=== PATIENT | female | born 1980 | race Caucasian/White ===

== ENCOUNTER 2018-05-03 00:09 | Inpatient (IN) ==
[2018-05-03] MEDS ORDERED: Vancomycin Inj 1,000 MG in Sodium Chlor 0.9% Inj 250 ML IV.SIG STA (00:47)
[2018-05-03] MEDS ORDERED: Piperacil/Tazo 4.5 GM Premix 4.5 GM/100 ML BAG IV.SIG STA (00:47)
[2018-05-03] MEDS ORDERED: Acetaminophen 325 MG Tablet PO ONE (00:56)
--- NOTE | 2018-05-03 01:14 | XR ---
EXAM DATE: 05/03/2018 1:11 AM EDT AGE/SEX: 37 years / Female INDICATIONS: Short of breath and fever. CLINICAL DATA: This is the patient's initial encounter. Patient reports that signs and symptoms have been present for 1 day and indicates a pain score of 0/10. MEDICAL/SURGICAL HISTORY: None. None. COMPARISON: No prior exams available for comparison. FINDINGS: Single AP view of the chest. The lungs are clear. Cardiomediastinal silhouette within nor mal limits. No evidence of pleural effusion or pneumothorax. CONCLUSION: No acute cardiopulmonary disease identified. Electronically signed by: Chris Reno MD 05/03/2018 1:13 AM EDT
[2018-05-03 01:39] LABS: Baso # (Auto) 0.1 th/mm3 (0.0-0.2); Baso % (Auto) 0.4 % (0.0-2.0); Eos % (Auto) 0.2 % (0.0-4.0); Hematocrit 33.4 % (35.0-46.0); Hemoglobin 11.6 gm/dL (11.6-15.3); Lymph # (Auto) 2.5 th/mm3 (1.0-4.8); Lymph % (Auto) 12.9 % (9.0-44.0); Mean Corpuscular HGB Conc 34.7 % (32.0-36.0); Mean Corpuscular Hemoglobin 27.5 pg (27.0-34.0); Mean Corpuscular Volume 79.3 fL (80.0-100.0); Mean Platelet Volume 7.6 fL (7.0-11.0); Mono # (Auto) 1.4 th/mm3 (0.0-0.9); Mono % (Auto) 7.1 % (0.0-8.0); Neut # (Auto) 15.5 th/mm3 (1.8-7.7); Neut % (Auto) 79.4 % (16.0-70.0); Platelet Count 445 th/mm3 (150-450); Red Blood Count 4.21 mil/mm3 (4.00-5.30); Red Cell Distribution Width 13.5 % (11.6-17.2); White Blood Count 19.5 th/mm3 (4.0-11.0)
[2018-05-03 01:51] LABS: Activated Partial Thrombo Time 37.3 sec (24.3-30.1); Prothrombin Time 10.6 sec (9.8-11.6)
--- NOTE | 2018-05-03 01:59 | ED ---
HPI General Chief complaint: Skin/Abscess/Foreign Body Stated complaint: Skin Time Seen by Provider: 05/03/18 00:36 Related Data Home Medications Medication Instructions Recorded Confirmed No Known Home Medications 04/27/18 05/03/18 Allergies Allergy/AdvReac Type Severity Reaction Status Date / Time *MDRO Multi-Drug Resistant Allergy Unknown Uncoded 01/19/16 13:21 Organism [facility] Medical History Medical History Drug abuse (Acute) Social History Social History Substance History: Active Abuse Second Hand Smoke Exposure: Yes Smoking Status: Current every day smoker Tobacco Type: Cigarettes How Often Do You Have a Drink Containing Alcohol: Never Recent Travel in [facility] within the Last 8 Weeks: No Recent Out of Country Travel within the Last 8 Weeks: No Substance Abuse Detail Crack/Cocaine: Substance Use Status: Active Route Used Substance Abuse: Intravenously Immunization History Tetanus Immunization: <5 Years Procedures Abscess I/D Site: upper extremity (Right forearm, left upper outer shoulder) Side (if applicable): left and right Anesthetic used: lidocaine 1% Technique: incised with #11 blade Amount of fluid expressed (mL): 20 Irrigation: No Packing used?: plain Complications: pain Course Initial Documented Vital Signs Temperature 99.4 F 05/03/18 00:26 Pulse Rate 101 H 05/03/18 00:26 Respiratory Rate 18 05/03/18 00:26 Blood Pressure 114/78 05/03/18 00:26 Pulse Oximetry 100 05/03/18 00:26 Last Documented Vital Signs Temperature 97.9 F 05/03/18 18:00 Pulse Rate 76 05/03/18 18:00 Respiratory Rate 18 05/03/18 18:00 Blood Pressure 104/59 L 05/03/18 18:00 Pulse Oximetry 98 05/03/18 18:00 Medical Decision Making Lab Data Result diagrams: 05/03/18 01:25 05/03/18 01:25 Lab Results 05/03/18 05/03/18 05/03/18 Range/Units 01:25 01:25 01:25 WBC 19.5 H (4.0-11.0) th/mm3 RBC 4.21 (4.00-5.30) mil/mm3 Hgb 11.6 (11.6-15.3) gm/dL Hct 33.4 L (35.0-46.0) % MCV 79.3 L (80.0-100.0) fL MCH 27.5 (27.0-34.0) pg MCHC 34.7 (32.0-36.0) % RDW 13.5 (11.6-17.2) % Plt Count 445 (150-450) th/mm3 MPV 7.6 (7.0-11.0) fL Neut % (Auto) 79.4 H (16.0-70.0) % Lymph % (Auto) 12.9 (9.0-44.0) % [place] % (Auto) 7.1 (0.0-8.0) % Eos % (Auto) 0.2 (0.0-4.0) % Baso % (Auto) 0.4 (0.0-2.0) % Neut # (Auto) 15.5 H (1.8-7.7) th/mm3 Lymph # (Auto) 2.5 (1.0-4.8) th/mm3 [place] # (Auto) 1.4 H (0.0-0.9) th/mm3 Eos # (Auto) 0.0 (0.0-0.4) th/mm3 Baso # (Auto) 0.1 (0.0-0.2) th/mm3 WBC Differential . Differential Comment Auto diff final PT 10.6 (9.8-11.6) sec INR 1.0 Ratio APTT 37.3 H (24.3-30.1) sec Sodium 132 L (136-145) meq/L Potassium 3.1 L (3.5-5.1) meq/L Chloride 95 L (98-107) meq/L Carbon Dioxide 27.9 (21.0-32.0) meq/L Anion Gap 9 (5-15) meq/L BUN 8 (7-18) mg/dL Creatinine 0.68 (0.50-1.00) mg/dL Estimated GFR Greater than 89 (>89) mL/min Random Glucose 79 (74-106) mg/dL Lactic Acid (0.4-2.0) mmol/L Calcium 8.0 L (8.5-10.1) mg/dL Total Bilirubin 0.9 (0.2-1.0) mg/dL AST 33 (15-37) U/L ALT 28 (10-53) U/L Alkaline Phosphatase 95 (45-117) U/L Total Protein 6.9 (6.4-8.2) g/dL Albumin 3.1 L (3.4-5.0) g/dL Beta HCG, Quant Less than 1 (0-5) mIU/mL Urine Opiates Screen (Neg) Ur Barbiturates Screen (Neg) Ur Amphetamines Screen (Neg) U Benzodiazepines Scrn (Neg) Urine Cocaine Screen (Neg) U Cannabinoids Screen (Neg) Serum Alcohol Less than 3 (0-5) mg/dL 05/03/18 05/03/18 Range/Units 01:25 01:33 WBC (4.0-11.0) th/mm3 RBC (4.00-5.30) mil/mm3 Hgb (11.6-15.3) gm/dL Hct (35.0-46.0) % MCV (80.0-100.0) fL MCH (27.0-34.0) pg MCHC (32.0-36.0) % RDW (11.6-17.2) % Plt Count (150-450) th/mm3 MPV (7.0-11.0) fL Neut % (Auto) (16.0-70.0) % Lymph % (Auto) (9.0-44.0) % [place] % (Auto) (0.0-8.0) % Eos % (Auto) (0.0-4.0) % Baso % (Auto) (0.0-2.0) % Neut # (Auto) (1.8-7.7) th/mm3 Lymph # (Auto) (1.0-4.8) th/mm3 [place] # (Auto) (0.0-0.9) th/mm3 Eos # (Auto) (0.0-0.4) th/mm3 Baso # (Auto) (0.0-0.2) th/mm3 WBC Differential Differential Comment PT (9.8-11.6) sec INR Ratio APTT (24.3-30.1) sec Sodium (136-145) meq/L Potassium (3.5-5.1) meq/L Chloride (98-107) meq/L Carbon Dioxide (21.0-32.0) meq/L Anion Gap (5-15) meq/L BUN (7-18) mg/dL Creatinine (0.50-1.00) mg/dL Estimated GFR (>89) mL/min Random Glucose (74-106) mg/dL Lactic Acid 1.0 (0.4-2.0) mmol/L Calcium (8.5-10.1) mg/dL Total Bilirubin (0.2-1.0) mg/dL AST (15-37) U/L ALT (10-53) U/L Alkaline Phosphatase (45-117) U/L Total Protein (6.4-8.2) g/dL Albumin (3.4-5.0) g/dL Beta HCG, Quant (0-5) mIU/mL Urine Opiates Screen Pos H (Neg) Ur Barbiturates Screen Neg (Neg) Ur Amphetamines Screen Neg (Neg) U Benzodiazepines Scrn Neg (Neg) Urine Cocaine Screen Pos H (Neg) U Cannabinoids Screen Neg (Neg) Serum Alcohol (0-5) mg/dL Imaging Data Radiologist's impression: Chest X-Ray 05/03/18 00:45 CONCLUSION: No acute cardiopulmonary disease identified. Discharge Plan Discharge Disposition Patient Disposition: 30 Still Patient Discharge Condition Condition: Stable Discharge Details Diagnosis: Abscess, Cellulitis Physicians Team ED Provider: Benjamín Hood ED Midlevel Provider: Cecil Butts Primary Care Provider: UNKNOWN, Attending Provider: Sven Piper Status ED Status: Left Department Discharge Information Discharge Date/Time: 05/03/18 05:47
[2018-05-03 02:00] LABS: Alkaline Phosphatase 95 U/L (45-117); Total Protein 6.9 g/dL (6.4-8.2)
[2018-05-03 02:04] LABS: Alanine Aminotransferase 28 U/L (10-53); Albumin 3.1 g/dL (3.4-5.0); Anion Gap 9 meq/L (5-15); Aspartate Aminotransferase 33 U/L (15-37); Blood Urea Nitrogen 8 mg/dL (7-18); Carbon Dioxide 27.9 meq/L (21.0-32.0); Chloride 95 meq/L (98-107); Glomerular Filtration Rate Greater Than 89 mL/min (>89); Glucose,Random 79 mg/dL (74-106); Potassium 3.1 meq/L (3.5-5.1); Sodium 132 meq/L (136-145)
[2018-05-03 02:22] LABS: Amphetamine Screen,Urine Neg (Neg); Barbiturate Screen,Urine Neg (Neg); Cannabinoid Screen,Urine Neg (Neg); Cocaine Screen,Urine Pos (Neg)
[2018-05-03 02:52] LABS: Opiate Screen,Urine Pos (Neg)
--- NOTE | 2018-05-03 03:13 | ED ---
HPI General Chief complaint: Skin/Abscess/Foreign Body Stated complaint: Skin Time Seen by Provider: 05/03/18 00:36 Source: patient Mode of arrival: ambulatory History of Present Illness HPI narrative: The patient is a 37-year-old male with history of IV drug abuse presenting with 2 abscesses one of the left shoulder one on the right forearm secondary to shooting up crack cocaine about 3 weeks ago. Patient also has hep C and history of panic attacks. Has extensive history of heroin abuse and states she has been in rehab. Denies any fever or chills. MD complaint: abscess/boil Onset (ago): week(s) (3) Tetanus Immunization: <5 Years Location: LUE and RUE Severity: severe Severity scale (1-10): >10 Pain Consistency: constant Relieving factors: none Context: IVDA Associated symptoms: denies other symptoms Treatments prior to arrival: none Related Data Home Medications Medication Instructions Recorded Confirmed No Known Home Medications 04/27/18 04/27/18 Allergies Allergy/AdvReac Type Severity Reaction Status Date / Time *MDRO Multi-Drug Resistant Allergy Unknown Uncoded 01/19/16 13:21 Organism Review of Systems Constitutional Denies fever(s) Eyes Denies change in vision ENT Denies headache(s) and Denies nasal congestion Cardiovascular Denies chest pain Respiratory Denies dyspnea Gastrointestinal Denies abdominal pain Genitourinary Denies difficulty voiding Musculoskeletal Denies myalgias Integumentary/Breasts Comments: Abscess with redness on left upper and right upper extremities Neurologic Denies headache(s) Psychiatric Reports anxiety, Reports depression, Reports irritability, Reports panic attacks , Denies hallucinations and Denies suicidal ideation Endocrine Denies polyuria Hematologic/Lymphatic Denies easy bruising PMFSH Medical History Medical History Drug abuse (Acute) Social History Social History Substance History: Active Abuse Second Hand Smoke Exposure: Yes Smoking Status: Current every day smoker Tobacco Type: Cigarettes How Often Do You Have a Drink Containing Alcohol: Monthly or less Substance Abuse Detail Crack/Cocaine: Substance Use Status: Active Route Used Substance Abuse: Intravenously Immunization History Tetanus Immunization: <5 Years Exam Narrative Exam Narrative: GENERAL: [-] SKIN: Multiple tattoos excoriations and track sanchez on upper extremities. She has a large abscess on the left shoulder pad with indurated tissue. She also has an abscess that is measuring 3 x 2 cm on the posterior aspect of the right forearm. HEAD: Atraumatic. Normocephalic. EYES: Pupils equal and round. No scleral icterus. No injection or drainage. ENT: No nasal bleeding or discharge. Mucous membranes pink and moist. Poor dentition. NECK: Trachea midline. No JVD. CARDIOVASCULAR: Regular rate and rhythm. No murmur appreciated. RESPIRATORY: No accessory muscle use. Clear to auscultation. Breath sounds equal bilaterally. GASTROINTESTINAL: Abdomen soft, non-tender, nondistended. Hepatic and splenic margins not palpable. MUSCULOSKELETAL: No obvious deformities. No clubbing. No cyanosis. No edema. NEUROLOGICAL: Awake and alert. No obvious cranial nerve deficits. Motor grossly within normal limits. Normal speech. PSYCHIATRIC: Appropriate mood and affect; Inappropriate judgment patient has been seen taking off her robe several times.Not suicidal homicidal. Anxious Procedures Abscess I/D Site: upper extremity (Left shoulder pad and right forearm) Anesthetic used: lidocaine 1% Technique: incised with #11 blade Amount of fluid expressed (mL): 30 Irrigation: Yes Packing used?: iodoform Course Reevaluation(s) Time: 02:12 Reevaluation #2: Both abscesses were incised and drained. Due to the fact the patient has markedly elevated white count and she is not a reliable patient will admit her for IV antibiotics. In addition she is not a reliable patient to discharge on p.o. antibiotics likely will return septic from her wounds. Potassium of 3.1 noted. Time: 03:15 Initial Documented Vital Signs Temperature 99.4 F 05/03/18 00:26 Pulse Rate 101 H 05/03/18 00:26 Respiratory Rate 18 05/03/18 00:26 Blood Pressure 114/78 05/03/18 00:26 Pulse Oximetry 100 05/03/18 00:26 Last Documented Vital Signs Temperature 98 F 05/03/18 05:24 Pulse Rate 80 05/03/18 05:24 Respiratory Rate 05/03/18 05:24 Blood Pressure 132/72 05/03/18 05:24 Pulse Oximetry 100 05/03/18 00:26 Medical Decision Making MDM Narrative Medical decision making narrative: Abscesses drained by mid-level practitioner IV antibiotics started the fact that there was a large amount of purulent discharge from the I&D she is not a reliable patient to discharge home with p.o. antibiotics. Elevated WBC. Not appearing septic no lactic acidosis. Lab Data Lab results reviewed: Yes I reviewed the patient's lab results. Result diagrams: 05/03/18 01:25 05/03/18 01:25 Lab Results 05/03/18 05/03/18 05/03/18 Range/Units 01:25 01:25 01:25 WBC 19.5 H (4.0-11.0) th/mm3 RBC 4.21 (4.00-5.30) mil/mm3 Hgb 11.6 (11.6-15.3) gm/dL Hct 33.4 L (35.0-46.0) % MCV 79.3 L (80.0-100.0) fL MCH 27.5 (27.0-34.0) pg MCHC 34.7 (32.0-36.0) % RDW 13.5 (11.6-17.2) % Plt Count 445 (150-450) th/mm3 MPV 7.6 (7.0-11.0) fL Neut % (Auto) 79.4 H (16.0-70.0) % Lymph % (Auto) 12.9 (9.0-44.0) % [place] % (Auto) 7.1 (0.0-8.0) % Eos % (Auto) 0.2 (0.0-4.0) % Baso % (Auto) 0.4 (0.0-2.0) % Neut # (Auto) 15.5 H (1.8-7.7) th/mm3 Lymph # (Auto) 2.5 (1.0-4.8) th/mm3 [place] # (Auto) 1.4 H (0.0-0.9) th/mm3 Eos # (Auto) 0.0 (0.0-0.4) th/mm3 Baso # (Auto) 0.1 (0.0-0.2) th/mm3 WBC Differential . Differential Comment Auto diff final PT 10.6 (9.8-11.6) sec INR 1.0 Ratio APTT 37.3 H (24.3-30.1) sec Sodium 132 L (136-145) meq/L Potassium 3.1 L (3.5-5.1) meq/L Chloride 95 L (98-107) meq/L Carbon Dioxide 27.9 (21.0-32.0) meq/L Anion Gap 9 (5-15) meq/L BUN 8 (7-18) mg/dL Creatinine 0.68 (0.50-1.00) mg/dL Estimated GFR Greater than 89 (>89) mL/min Random Glucose 79 (74-106) mg/dL Lactic Acid (0.4-2.0) mmol/L Calcium 8.0 L (8.5-10.1) mg/dL Total Bilirubin 0.9 (0.2-1.0) mg/dL AST 33 (15-37) U/L ALT 28 (10-53) U/L Alkaline Phosphatase 95 (45-117) U/L Total Protein 6.9 (6.4-8.2) g/dL Albumin 3.1 L (3.4-5.0) g/dL Beta HCG, Quant Less than 1 (0-5) mIU/mL Urine Opiates Screen (Neg) Ur Barbiturates Screen (Neg) Ur Amphetamines Screen (Neg) U Benzodiazepines Scrn (Neg) Urine Cocaine Screen (Neg) U Cannabinoids Screen (Neg) Serum Alcohol Less than 3 (0-5) mg/dL 05/03/18 05/03/18 Range/Units 01:25 01:33 WBC (4.0-11.0) th/mm3 RBC (4.00-5.30) mil/mm3 Hgb (11.6-15.3) gm/dL Hct (35.0-46.0) % MCV (80.0-100.0) fL MCH (27.0-34.0) pg MCHC (32.0-36.0) % RDW (11.6-17.2) % Plt Count (150-450) th/mm3 MPV (7.0-11.0) fL Neut % (Auto) (16.0-70.0) % Lymph % (Auto) (9.0-44.0) % [place] % (Auto) (0.0-8.0) % Eos % (Auto) (0.0-4.0) % Baso % (Auto) (0.0-2.0) % Neut # (Auto) (1.8-7.7) th/mm3 Lymph # (Auto) (1.0-4.8) th/mm3 [place] # (Auto) (0.0-0.9) th/mm3 Eos # (Auto) (0.0-0.4) th/mm3 Baso # (Auto) (0.0-0.2) th/mm3 WBC Differential Differential Comment PT (9.8-11.6) sec INR Ratio APTT (24.3-30.1) sec Sodium (136-145) meq/L Potassium (3.5-5.1) meq/L Chloride (98-107) meq/L Carbon Dioxide (21.0-32.0) meq/L Anion Gap (5-15) meq/L BUN (7-18) mg/dL Creatinine (0.50-1.00) mg/dL Estimated GFR (>89) mL/min Random Glucose (74-106) mg/dL Lactic Acid 1.0 (0.4-2.0) mmol/L Calcium (8.5-10.1) mg/dL Total Bilirubin (0.2-1.0) mg/dL AST (15-37) U/L ALT (10-53) U/L Alkaline Phosphatase (45-117) U/L Total Protein (6.4-8.2) g/dL Albumin (3.4-5.0) g/dL Beta HCG, Quant (0-5) mIU/mL Urine Opiates Screen Pos H (Neg) Ur Barbiturates Screen Neg (Neg) Ur Amphetamines Screen Neg (Neg) U Benzodiazepines Scrn Neg (Neg) Urine Cocaine Screen Pos H (Neg) U Cannabinoids Screen Neg (Neg) Serum Alcohol (0-5) mg/dL Imaging Data Radiologist's impression: Chest X-Ray 05/03/18 00:45 CONCLUSION: No acute cardiopulmonary disease identified. Discharge Plan Discharge Disposition Patient Disposition: 30 Still Patient Discharge Condition Condition: Stable Discharge Details Diagnosis: Abscess, Cellulitis Physicians Team ED Provider: Benjamín Hood ED Midlevel Provider: Cecil Butts Primary Care Provider: UNKNOWN, Attending Provider: Sven Piper Discharge Interventions Interventions: ED Discharge Assessment Last Done: 07/21/18 05:46 Vital Signs Last Done: 05/03/18 00:26 Status ED Status: Left Department Discharge Information Discharge Date/Time: 05/03/18 05:47
[2018-05-03] MEDS ORDERED: Bisacodyl 10 MG Supp RECTAL PRN (04:03)
[2018-05-03] MEDS ORDERED: Acetaminophen 325 MG Tablet PO PRN (04:03)
[2018-05-03] MEDS ORDERED: Temazepam 15 MG Capsule PO PRN (04:03)
--- NOTE | 2018-05-03 04:32 | P.HPIM ---
History of Present Illness Primary Care Physician: UNKNOWN History of Present Illness: This is a 37-year-old female with a PMH of IVDU who presented to the ER with c/ o multiple abscesses to upper extremities. States RUE abscesses present for approx 2wks, right forearm abscess present for approx 1wk. +injecting into sites and attempting to pop them. Denies fever or chills. On arrival, BP 114/ 78, HR 101, O2 sat 100% on RA, Temp 99.4. W BC 19.5. K+ 3.1. Urine Drug Screen positive for Cocaine and Opiates. Alcohol negative. CXR with no acute findings. S/p I&D Left Shoulder and Right Forearm in ER, cultures sent. Vanc/ Zosyn given. - Diagnosis (1) IVDU (intravenous drug user) (2) SIRS (systemic inflammatory response syndrome) (3) Abscess Inpatient Certification: I certify that the inpatient services were ordered in accordance with Medicare regulations governing the order. This includes certification that hospital inpatient services are reasonable and necessary and in the case of services not specified as inpatient-only under 42 CFR 419.22(n), that they are appropriately provided as inpatient services in accordance to with the 2-midnight benchmark under 43 CFR 412.3(e) Estimated Total Length of Stay (Days): 2 Plans for Post Hospital Care: Not yet determined Review of Systems All other systems reviewed negative except as stated [facility] - History History Provided By: Patient - Medical History Medical History: Medical History (Last Reviewed 05/03/18 @ 01:32 by Bhavani Vergara) Drug abuse - Tobacco History Second Hand Smoke Exposure: Yes Tobacco Use In Past 30 Days: Yes Smoking Status: Current every day smoker Tobacco Type: Cigarettes - Alcohol History How Often Do You Have a Drink Containing Alcohol: Monthly or less - Substance Use History Substance History: Active Abuse - Substance Use Type Crack/Cocaine Status: Active Route Used: Intravenously - Immunization History Tetanus Immunization: <5 Years Medications and Allergies Active Medications: Active Medications Acetaminophen (Tylenol) 650 mg PO Q4H PRN PRN Reason: Temp > 100.4 Al Hydroxide/Mg Hydroxide (Milk Of Magnesia Liq) 30 ml PO Q12H PRN PRN Reason: Mild Constipation Bisacodyl (Dulcolax Supp) 10 mg RECTAL DAILY PRN PRN Reason: SEVERE CONSITIPATION Sodium Chloride (Ns Inj) 1,000 mls @ 100 mls/hr IV.CONT .Q10H REPLACED BY [facility] Pharmacy Profile Note (Vancomycin Consult Pharmacy) 0 mls @ 0 mls/hr OTHER UNSCH REPLACED BY [facility] Piperacillin/Tazobactam/Dextrose (Zosyn 4.5 Gm Premix) 4.5 gm in 100 mls @ 200 mls/hr IV.SIG Q6H REPLACED BY [facility] Lactulose (Lactulose Liq) 30 ml PO DAILY PRN PRN Reason: SEVERE CONSITIPATION Lorazepam (Ativan Inj) 1 mg IV.PUSH Q2H PRN PRN Reason: AGITATION/WITHDRAWAL Miscellaneous Information ([facility]) 0 each OTHER Q15M REPLACED BY [facility] Stop: 05/03/18 07:16 Ondansetron HCl (Zofran Inj) 4 mg IV.PUSH Q6H PRN PRN Reason: NAUSEA OR VOMITING Oxycodone HCl (Roxicodone) 5 mg PO Q4H PRN PRN Reason: PAIN 3-5 Oxycodone HCl (Roxicodone) 10 mg PO Q4H PRN PRN Reason: PAIN 6-10 Senna/Docusate Sodium (Geeta-Colace) 1 tab PO BID REPLACED BY [facility] Sennosides (Senokot) 17.2 mg PO Q12H PRN PRN Reason: Moderate Constipation Temazepam (Restoril) 15 mg PO HS PRN PRN Reason: INSOMNIA Allergies Allergy/AdvReac Type Severity Reaction Status Date / Time *MDRO Multi-Drug Resistant Allergy Unknown Uncoded 01/19/16 13:21 Organism Home Medications Medication Instructions Recorded Confirmed Type No Known Home Medications 04/27/18 04/27/18 History Exam Vital signs: Vital Signs 05/03/18 00:26 Temperature 99.4 F Pulse Rate 101 H Respiratory Rate 18 Blood Pressure 114/78 Pulse Oximetry 100 Narrative: PE: GENERAL: Thin white female in no acute distress. HEENT: PERRLA, EOMI. No scleral icterus or conjunctival pallor. No lid lag or facial droop. CARDIOVASCULAR: Regular rate and rhythm. No obvious murmurs to auscultation. No chest tenderness to palpation. RESPIRATORY: No obvious rhonchi or wheezing. Clear to auscultation. Breath sounds equal bilaterally. GASTROINTESTINAL: Abdomen soft, non-tender, nondistended. BS normal. MUSCULOSKELETAL: Extremities without clubbing, cyanosis, or edema. No obvious deformities. Left shoulder s/p I&D w/ purulent foul-smelling drainage, left forearm w/ erythema/induration, right forearm s/p I&D w/ no significant drainage. NEUROLOGICAL: Awake, alert and oriented x4. No focal neurologic deficits. Moving both upper and lower extremities spontaneously. Results - Labs CBC & Chem 7: 05/03/18 01:25 05/03/18 01:25 Labs: Short CBC 05/03/18 Range/Units 01:25 WBC 19.5 H (4.0-11.0) th/mm3 Hgb 11.6 (11.6-15.3) gm/dL Hct 33.4 L (35.0-46.0) % Plt Count 445 (150-450) th/mm3 BMP 05/03/18 01:25 Sodium 132 L Potassium 3.1 L Chloride 95 L Carbon Dioxide 27.9 BUN 8 Creatinine 0.68 Calcium 8.0 L Liver Function 05/03/18 Range/Units 01:25 Total Bilirubin 0.9 (0.2-1.0) mg/dL AST 33 (15-37) U/L ALT 28 (10-53) U/L Alkaline Phosphatase 95 (45-117) U/L Albumin 3.1 L (3.4-5.0) g/dL - Imaging Impressions Chest X-Ray 05/03/18 00:45 CONCLUSION: No acute cardiopulmonary disease identified. Caprini VTE Risk Assessment Caprini VTE Risk Assessment: No/Low Risk (score <= 1) Caprini Risk Assessment Model: Point Value = 1 Point Value = 2 Point Value = 3 Point Value = 5 Age 41-60 Minor surgery BMI > 25 kg/m2 Swollen legs Varicose veins or History of unexplained or recurrent spontaneous Oral contraceptives or hormone replacement Sepsis (< 1 month) Serious lung disease, including pneumonia (< 1 month) Abnormal pulmonary function Acute myocardial infarction Congestive heart failure (< 1 month) History of inflammatory bowel disease Medical patient at bed rest Age 61-74 Arthroscopic surgery Major open surgery (> 45 min) Laparoscopic surgery (> 45 min) Malignancy Confined to bed (> 72 hours) Immobilizing plaster cast Central venous access Age >= 75 History of VTE Family history of VTE Factor V Leiden Prothrombin [id number] Lupus anticoagulant Anticardiolipin antibodies Elevated serum homocysteine Heparin-induced thrombocytopenia Other congenital or acquired thrombophilia Stroke (< 1 month) Elective arthroplasty Hip, pelvis, or leg fracture Acute spinal cord injury (< 1 month) Prophylaxis Regimen: Total Risk Factor Score Risk Level Prophylaxis Regimen 0-1 Low Early ambulation 2 Moderate Order ONE of the following: *Sequential Compression Device (SCD) *Heparin 5000 units SQ BID 3-4 Higher Order ONE of the following medications: *Heparin 5000 units SQ TID *Enoxaparin/Lovenox 40 mg SQ daily (WT < 150 kg, CrCl > 30 mL/min) *Enoxaparin/Lovenox 30 mg SQ daily (WT < 150 kg, CrCl > 10-29 mL/min) *Enoxaparin/Lovenox 30 mg SQ BID (WT < 150 kg, CrCl > 30 mL/min) AND/OR *Sequential Compression Device (SCD) 5 or more Highest Order ONE of the following medications: *Heparin 5000 units SQ TID (Preferred with Epidurals) *Enoxaparin/Lovenox 40 mg SQ daily (WT < 150 kg, CrCl > 30 mL/min) *Enoxaparin/Lovenox 30 mg SQ daily (WT < 150 kg, CrCl > 10-29 mL/min) *Enoxaparin/Lovenox 30 mg SQ BID (WT < 150 kg, CrCl > 30 mL/min) AND *Sequential Compression Device (SCD) Assessment and Plan - Assessment (1) IVDU (intravenous drug user) Code(s): F19.90 - Other psychoactive substance use, unspecified, uncomplicated Status: Acute (2) SIRS (systemic inflammatory response syndrome) Code(s): R65.10 - Systemic inflammatory response syndrome (SIRS) of non- infectious origin without acute organ dysfunction Status: Acute (3) Abscess Code(s): L02.91 - Cutaneous abscess, unspecified Status: Acute - Plan A/P: 1. Sepsis/SIRS: Temp 99, HR 104, WBC 19, Source-multiple abscesses. S/p Blood /Wound Cultures, Vanc/Zosyn, follow up cultures, continue w/ IV Abx. IVF for hydration 2. Abscesses: multiple bilateral upper extremity abscesses, s/p I&D Left Shoulder and Right Forearm, pending cultures, will follow. Continue w/ IV Abx, consult surgery if no improvement. 3. IVDU: Ongoing. Ativan prn. 4. DVT Prophylaxis: SCD/Teds 5. Social work for d/c planning as needed. 6. Case discussed w/ ER physician at length, labs/records/imaging reviewed by me.
[2018-05-03] MEDS ORDERED: NEED HT & WT OTHER SCH ×2 (04:45→05:00)
[2018-05-03] MEDS ORDERED: Vancomycin Consult Pharmacy 1 EACH OTHER SCH (05:00)
[2018-05-03] MEDS: NEED HT & WT OTHER SCH ×2 (06:24→06:25)
[2018-05-03] MEDS: Sod Chloride 0.9% Inj 1,000 ML IV.CONT SCH ×2 (06:25→15:58)
[2018-05-03] MEDS: Senna/Docusate Sodium 8.6/50 MG Tablet PO SCH ×2 (09:08→20:34)
[2018-05-03] MEDS: Piperacil/Tazo 4.5 GM Premix 4.5 GM/100 ML BAG IV.SIG SCH ×3 (09:09→20:34)
[2018-05-03] MEDS: Vancomycin Inj 750 MG in Sodium Chlor 0.9% Inj 250 ML IV.SIG SCH (13:38)
[2018-05-04] MEDS: Piperacil/Tazo 4.5 GM Premix 4.5 GM/100 ML BAG IV.SIG SCH ×4 (02:00→20:31)
[2018-05-04] MEDS: Vancomycin Inj 750 MG in Sodium Chlor 0.9% Inj 250 ML IV.SIG SCH ×2 (03:00→15:27)
[2018-05-04 07:10] LABS: Baso # (Auto) 0.1 th/mm3 (0.0-0.2); Baso % (Auto) 0.9 % (0.0-2.0); Eos # (Auto) 0.2 th/mm3 (0.0-0.4); Eos % (Auto) 2.1 % (0.0-4.0); Hematocrit 34.8 % (35.0-46.0); Hemoglobin 12.3 gm/dL (11.6-15.3); Lymph % (Auto) 39.2 % (9.0-44.0); Mean Corpuscular HGB Conc 35.2 % (32.0-36.0); Mean Corpuscular Hemoglobin 28.5 pg (27.0-34.0); Mean Platelet Volume 7.6 fL (7.0-11.0); Mono # (Auto) 0.7 th/mm3 (0.0-0.9); Mono % (Auto) 6.8 % (0.0-8.0); Neut # (Auto) 5.2 th/mm3 (1.8-7.7); Platelet Count 475 th/mm3 (150-450); White Blood Count 10.1 th/mm3 (4.0-11.0)
[2018-05-04 07:42] LABS: Alanine Aminotransferase 29 U/L (10-53); Albumin 2.9 g/dL (3.4-5.0); Alkaline Phosphatase 81 U/L (45-117); Anion Gap 8 meq/L (5-15); Aspartate Aminotransferase 29 U/L (15-37); Blood Urea Nitrogen 10 mg/dL (7-18); Calcium 8.1 mg/dL (8.5-10.1); Chloride 106 meq/L (98-107); Glomerular Filtration Rate 87 mL/min (>89); Glucose,Random 87 mg/dL (74-106); Potassium 3.3 meq/L (3.5-5.1); Sodium 144 meq/L (136-145); Total Protein 6.7 g/dL (6.4-8.2)
[2018-05-04] MEDS: Sod Chloride 0.9% Inj 1,000 ML IV.CONT SCH ×3 (08:43→22:49)
[2018-05-04] MEDS: Senna/Docusate Sodium 8.6/50 MG Tablet PO SCH ×2 (08:45→20:35)
--- NOTE | 2018-05-04 10:58 | P.PNIM ---
Subjective Interval history: This is a 37-year-old female with a PMH of IVDU who presented to the ER with c/ o multiple abscesses to upper extremities. States RUE abscesses present for approx 2wks, right forearm abscess present for approx 1wk. +injecting into sites and attempting to pop them. Denies fever or chills. On arrival, BP 114/ 78, HR 101, O2 sat 100% on RA, Temp 99.4. W BC 19.5. K+ 3.1. Urine Drug Screen positive for Cocaine and Opiates. Alcohol negative. CXR with no acute findings. S/p I&D Left Shoulder and Right Forearm in ER, cultures sent. Vanc/ Zosyn given. 05-04 PATIENT STATES SKIN POPS HEROIN AND COCAINE AND CRACK SMOKES CRACK CONTINUE ANTIBIOTICS DW RN AND PATIENT REPLACE POTASSIUM AM LABS CASE MANAGEMENT KEEPS PICKING AT HER WOUNDS CONSULT CASE RESOLUTION SPECIALIST Physical Exam Vital signs: Vital Signs 05/03/18 11:38 05/03/18 15:39 05/03/18 18:00 Temperature 98.2 F 97.7 F 97.9 F Pulse Rate 79 76 76 Respiratory Rate 16 16 18 Blood Pressure 97/55 L 86/51 L 104/59 L Pulse Oximetry 98 100 98 05/03/18 20:00 05/04/18 00:00 05/04/18 04:00 Temperature 98.1 F 98.2 F 98.2 F Pulse Rate 71 80 83 Respiratory Rate 18 18 18 Blood Pressure 98/62 L 100/57 L 103/60 Pulse Oximetry 99 98 93 L 05/04/18 08:00 Temperature 97.8 F Pulse Rate 72 Respiratory Rate 19 Blood Pressure 124/62 Pulse Oximetry 96 Intake & Output 05/03/18 05/04/18 05/04/18 18:59 06:59 18:59 Intake Total 1500 / 1500 1160 / 1160 Balance 1500 / 1500 1160 / 1160 Weight 48.2 kg Intake: IV 1500 / 1500 200 / 200 NS Inj 1,000 ML @ 100 mls/hr IV 700 / 700 .CONT .Q10H MAG Rx#:[id number] Zosyn 4.5 GM Premix 4.5 gm In 300 / 300 200 / 200 100 ml @ 200 mls/hr IV.SIG Q6H MAG Rx#:[id number] Vancomycin Inj 1,000 MG In NS 250 / 250 Inj 250 ML @ 250 mls/hr IV.SIG STAT STA Rx#:[id number] Vancomycin Inj 750 MG In NS Inj 250 / 250 250 ML @ 250 mls/hr IV.SIG Q12H MAG Rx#:[id number] Oral 960 / 960 Other: # Voids 4 Narrative: GENERAL: Thin white female in no acute distress. POOR DENTITION HEENT: PERRLA, EOMI. No scleral icterus or conjunctival pallor. No lid lag or facial droop. CARDIOVASCULAR: Regular rate and rhythm. No obvious murmurs to auscultation. No chest tenderness to palpation. S1, S2 NO S3 OR S4 RESPIRATORY: No obvious rhonchi or wheezing. Clear to auscultation. Breath sounds equal bilaterally. GASTROINTESTINAL: Abdomen soft, non-tender, nondistended. BS normal. MUSCULOSKELETAL: Extremities without clubbing, cyanosis, or edema. No obvious deformities. Left shoulder s/p I&D w/ purulent foul-smelling drainage, left forearm w/ erythema/induration, right forearm s/p I&D w/ no significant drainage. NEUROLOGICAL: Awake, alert and oriented x4. No focal neurologic deficits. Moving both upper and lower extremities spontaneously. Insight and judgment is quite limited Mood and behavior is inappropriate Results - Labs CBC & Chem 7: 05/04/18 06:38 05/04/18 06:38 Laboratory Results - last 24 hr 05/04/18 05/04/18 06:38 06:38 WBC 10.1 RBC 4.30 Hgb 12.3 Hct 34.8 L MCV 81.0 MCH 28.5 MCHC 35.2 RDW 14.0 Plt Count 475 H MPV 7.6 Neut % (Auto) 51.0 Lymph % (Auto) 39.2 [place] % (Auto) 6.8 Eos % (Auto) 2.1 Baso % (Auto) 0.9 Neut # (Auto) 5.2 Lymph # (Auto) 4.0 [place] # (Auto) 0.7 Eos # (Auto) 0.2 Baso # (Auto) 0.1 WBC Differential . Differential Comment Auto diff final Sodium 144 D Potassium 3.3 L Chloride 106 D Carbon Dioxide 30.0 Anion Gap 8 BUN 10 Creatinine 0.75 Estimated GFR 87 L Random Glucose 87 Calcium 8.1 L Total Bilirubin 0.4 AST 29 ALT 29 Alkaline Phosphatase 81 Total Protein 6.7 Albumin 2.9 L Microbiology 05/03/18 02:24 Abscess - Arm Gram Stain - Final 05/03/18 02:24 Abscess - Arm Gram Stain - Final - Imaging Chest X-Ray 05/03/18 00:45 CONCLUSION: No acute cardiopulmonary disease identified. - Procedures ID OF AREAS BY THE ER Assessment and Plan - Assessment (1) IVDU (intravenous drug user) Code(s): F19.90 - Other psychoactive substance use, unspecified, uncomplicated Status: Acute (2) SIRS (systemic inflammatory response syndrome) Code(s): R65.10 - Systemic inflammatory response syndrome (SIRS) of non- infectious origin without acute organ dysfunction Status: Acute (3) Abscess Code(s): L02.91 - Cutaneous abscess, unspecified Status: Acute - Plan 1. Sepsis/SIRS: Temp 99, HR 104, WBC 19, Source-multiple abscesses. S/p Blood /Wound Cultures, Vanc/Zosyn, follow up cultures, continue w/ IV Abx. IVF for hydration 2. Abscesses: multiple bilateral upper extremity abscesses, s/p I&D Left Shoulder and Right Forearm, pending cultures, will follow. Continue w/ IV Abx, consult surgery if no improvement. 3. IVDU: Ongoing. Ativan prn. SKIN POPPING HEROIN STILL SMOKING CRACK HYPOKALEMIA WILL REPLACE 4. DVT Prophylaxis: SCD/Teds 5. Social work for d/c planning as needed. 6. Case discussed w/ ER physician at length, labs/records/imaging reviewed by me. Code Status: FULL CODE Discussed Condition With: RN AND PATIENT Discharge Planning: CONTINUE ANTIBIOTICS
[2018-05-04] MEDS ORDERED: Pharmacy Ordered Lab Info OTHER ONE (13:45)
[2018-05-04 17:37] VITALS: TEMP 98.2
[2018-05-04 22:48] VITALS: BP 121/66; PULSE 86; RESP 18; O2SAT 98
[2018-05-05] MEDS: Piperacil/Tazo 4.5 GM Premix 4.5 GM/100 ML BAG IV.SIG SCH (02:03)
[2018-05-05] MEDS: Vancomycin Inj 750 MG in Sodium Chlor 0.9% Inj 250 ML IV.SIG SCH (02:04)
[2018-05-06] MEDS ORDERED: Pharmacy Ordered Lab Info OTHER ONE (13:45)
== END 2018-05-05 03:05 | disposition left against medical advice (07) ==
LOC: NEPC 00:09 → MERGE 03:51 → NEDA 03:51 → NEPFCDU 06:02 → N04 18:04
PROVIDERS: ADMIT Hospitalist; ATTEND Hospitalist
DX: B19.20 Unspecified viral hepatitis C without hepatic coma; F41.0 Panic disorder [episodic paroxysmal anxiety]; F19.10 Other psychoactive substance abuse, uncomplicated; E87.6 Hypokalemia; L03.90 Cellulitis, unspecified; L02.414 Cutaneous abscess of left upper limb; L02.413 Cutaneous abscess of right upper limb; F17.210 Nicotine dependence, cigarettes, uncomplicated; A41.9 Sepsis, unspecified organism; F14.10 Cocaine abuse, uncomplicated

== ENCOUNTER 2018-05-06 20:23 | Inpatient (IN) ==
--- NOTE | 2018-05-06 21:05 | ED ---
HPI General Chief Complaint: Overdose Stated Complaint: Evac/[place] Act/DB[employer] Time Seen by Provider: 05/06/18 20:47 History of Present Illness HPI narrative: 37-year-old female presents to the emergency department by EMS transport after being found with altered mentation by manager publishing of a local store. Reportedly patient was found behind a store with erratic behavior. Patient was agitated and intermittently cooperative and hyper excitable state. Paramedics were able to intermittently obtain information from the patient as she was intermittently lucid and then became intermittently delirious and uncooperative. For transport purposes paramedics administered ketamine 250 mg IM as a one-time dose. No report of any injury or fall. Patient identified to have wound to the left shoulder consistent with probable incision and drainage site. Upon patient's arrival to the emergency department she is recognized by the nursing staff as a patient recently admitted for a large abscess of the left upper extremity status post incision and drainage for IV antibiotics sepsis and abscess management. Patient reportedly signed out AGAINST MEDICAL ADVICE. Patient with extensive substance abuse history. Patient is unable to provide any history at this time after ketamine administration. Related Data Home Medications Medication Instructions Recorded Confirmed No Known Home Medications 04/27/18 05/06/18 Allergies Allergy/AdvReac Type Severity Reaction Status Date / Time *MDRO Multi-Drug Resistant Allergy Unknown Uncoded 01/19/16 13:21 Organism Review of Systems ROS Unobtainable unobtainable due to mental status (Also secondary to medication administration ketamine 1050 mg IM prior to arrival) PMFSH History History Provided By: Medical Record Medical History Medical History Drug abuse (Acute) Social History Social History Substance History: Active Abuse Second Hand Smoke Exposure: Yes Smoking Status: Current every day smoker Tobacco Type: Cigarettes How Often Do You Have a Drink Containing Alcohol: Never Recent Travel in [place] within the Last 8 Weeks: No Recent Out of Country Travel within the Last 8 Weeks: No Exam Narrative Exam Narrative: GENERAL: Well-nourished, well-developed patient. Markedly disheveled female with GCS 7 after receiving ketamine just prior to arrival to the emergency department SKIN: Focused skin assessment warm/dry. Attention left shoulder soft tissue wound consistent with report of recent incision and drainage with noted cloudy serous drainage HEAD: Normocephalic. No scalp soft tissue swelling or bony abnormality to palpation. EYES: No scleral icterus. No injection or drainage. Pupils equal round reactive to light. NECK: Supple, trachea midline. No JVD or lymphadenopathy. CARDIOVASCULAR: Regular rate and rhythm without murmurs, gallops, or rubs. RESPIRATORY: Breath sounds equal bilaterally. No accessory muscle use. GASTROINTESTINAL: Abdomen soft, non-tender, nondistended. MUSCULOSKELETAL: No cyanosis, or edema. Course Initial Documented Vital Signs Pulse Rate 94 H 05/06/18 23:46 Respiratory Rate 12 05/06/18 23:46 Blood Pressure 127/66 05/06/18 23:46 Pulse Oximetry 100 05/06/18 23:46 Last Documented Vital Signs Pulse Rate 80 05/07/18 05:05 Respiratory Rate 16 05/07/18 05:05 Blood Pressure 110/73 05/07/18 05:05 Pulse Oximetry 100 05/07/18 05:49 Medical Decision Making Lab Data Result diagrams: 05/06/18 21:04 05/06/18 21:04 Lab Results 05/06/18 05/06/18 05/06/18 Range/Units 21:04 21:04 21:04 WBC 14.8 H (4.0-11.0) th/mm3 RBC 4.20 (4.00-5.30) mil/mm3 Hgb 11.8 (11.6-15.3) gm/dL Hct 34.6 L (35.0-46.0) % MCV 82.3 (80.0-100.0) fL MCH 28.1 (27.0-34.0) pg MCHC 34.1 (32.0-36.0) % RDW 13.9 (11.6-17.2) % Plt Count 496 H (150-450) th/mm3 MPV 7.3 (7.0-11.0) fL Neut % (Auto) 71.8 H (16.0-70.0) % Lymph % (Auto) 20.7 (9.0-44.0) % [place] % (Auto) 6.0 (0.0-8.0) % Eos % (Auto) 0.9 (0.0-4.0) % Baso % (Auto) 0.6 (0.0-2.0) % Neut # (Auto) 10.7 H (1.8-7.7) th/mm3 Lymph # (Auto) 3.1 (1.0-4.8) th/mm3 [place] # (Auto) 0.9 (0.0-0.9) th/mm3 Eos # (Auto) 0.1 (0.0-0.4) th/mm3 Baso # (Auto) 0.1 (0.0-0.2) th/mm3 WBC Differential . Differential Comment Auto diff final PT 10.6 (9.8-11.6) sec INR 1.0 Ratio APTT 34.8 H (24.3-30.1) sec Sodium 141 (136-145) meq/L Potassium 2.5 L* (3.5-5.1) meq/L Chloride 102 (98-107) meq/L Carbon Dioxide 26.1 (21.0-32.0) meq/L Anion Gap 13 (5-15) meq/L BUN 8 (7-18) mg/dL Creatinine 0.80 (0.50-1.00) mg/dL Estimated GFR 81 L (>89) mL/min Random Glucose 82 (74-106) mg/dL Lactic Acid (0.4-2.0) mmol/L Calcium 8.3 L (8.5-10.1) mg/dL Magnesium (1.5-2.5) mg/dL Total Bilirubin 0.4 (0.2-1.0) mg/dL AST 64 H (15-37) U/L ALT 45 (10-53) U/L Alkaline Phosphatase 97 (45-117) U/L Ammonia (11-32) mcmol/L Total Creatine Kinase 244 H (26-192) U/L CK-MB (CK-2) 4.8 H (0.5-3.6) ng/mL CK-MB (CK-2) % 2.0 (0.0-4.0) % Troponin I Less than 0.02 L (0.02-0.05) ng/mL Total Protein 7.1 (6.4-8.2) g/dL Albumin 3.1 L (3.4-5.0) g/dL TSH 2.170 (0.358-3.740) uIU/mL Urine Color (Yellw/Straw) Urine Clarity (Clear) Urine pH (5.0-8.5) Ur Specific [place] (1.002-1.035) Urine Protein (Neg-Trace) mg/dL Urine Glucose (UA) (Negative) mg/dL Urine Ketones (Negative) mg/dL Urine Occult Blood (Negative) Urine Nitrate (Negative) Urine Bilirubin (Negative) Urine Urobilinogen (Less than 2) mg/dL Ur Leukocyte Esterase (Negative) Urine WBC (0-5) /hpf Ur Squamous Epith Cells (0-5) /hpf Hyaline Casts (0-3) /lpf Urine Mucus (Occasional) /lpf Micro UA Comment Urine Culture Comments Salicylates (2.8-20.0) mg/dL Urine Opiates Screen (Neg) Acetaminophen Less than 2.0 L (10.0-30.0) mcg/mL Ur Barbiturates Screen (Neg) Ur Amphetamines Screen (Neg) U Benzodiazepines Scrn (Neg) Urine Cocaine Screen (Neg) U Cannabinoids Screen (Neg) Serum Alcohol Less than 3 (0-5) mg/dL Blood Type Blood Type Recheck Antibody Screen 05/06/18 05/06/18 05/06/18 Range/Units 21:04 21:04 21:04 WBC (4.0-11.0) th/mm3 RBC (4.00-5.30) mil/mm3 Hgb (11.6-15.3) gm/dL Hct (35.0-46.0) % MCV (80.0-100.0) fL MCH (27.0-34.0) pg MCHC (32.0-36.0) % RDW (11.6-17.2) % Plt Count (150-450) th/mm3 MPV (7.0-11.0) fL Neut % (Auto) (16.0-70.0) % Lymph % (Auto) (9.0-44.0) % [place] % (Auto) (0.0-8.0) % Eos % (Auto) (0.0-4.0) % Baso % (Auto) (0.0-2.0) % Neut # (Auto) (1.8-7.7) th/mm3 Lymph # (Auto) (1.0-4.8) th/mm3 [place] # (Auto) (0.0-0.9) th/mm3 Eos # (Auto) (0.0-0.4) th/mm3 Baso # (Auto) (0.0-0.2) th/mm3 WBC Differential Differential Comment PT (9.8-11.6) sec INR Ratio APTT (24.3-30.1) sec Sodium (136-145) meq/L Potassium (3.5-5.1) meq/L Chloride (98-107) meq/L Carbon Dioxide (21.0-32.0) meq/L Anion Gap (5-15) meq/L BUN (7-18) mg/dL Creatinine (0.50-1.00) mg/dL Estimated GFR (>89) mL/min Random Glucose (74-106) mg/dL Lactic Acid (0.4-2.0) mmol/L Calcium (8.5-10.1) mg/dL Magnesium (1.5-2.5) mg/dL Total Bilirubin (0.2-1.0) mg/dL AST (15-37) U/L ALT (10-53) U/L Alkaline Phosphatase (45-117) U/L Ammonia 23 (11-32) mcmol/L Total Creatine Kinase (26-192) U/L CK-MB (CK-2) (0.5-3.6) ng/mL CK-MB (CK-2) % (0.0-4.0) % Troponin I (0.02-0.05) ng/mL Total Protein (6.4-8.2) g/dL Albumin (3.4-5.0) g/dL TSH (0.358-3.740) uIU/mL Urine Color (Yellw/Straw) Urine Clarity (Clear) Urine pH (5.0-8.5) Ur Specific [place] (1.002-1.035) Urine Protein (Neg-Trace) mg/dL Urine Glucose (UA) (Negative) mg/dL Urine Ketones (Negative) mg/dL Urine Occult Blood (Negative) Urine Nitrate (Negative) Urine Bilirubin (Negative) Urine Urobilinogen (Less than 2) mg/dL Ur Leukocyte Esterase (Negative) Urine WBC (0-5) /hpf Ur Squamous Epith Cells (0-5) /hpf Hyaline Casts (0-3) /lpf Urine Mucus (Occasional) /lpf Micro UA Comment Urine Culture Comments Salicylates Less than 1.7 L (2.8-20.0) mg/dL Urine Opiates Screen (Neg) Acetaminophen (10.0-30.0) mcg/mL Ur Barbiturates Screen (Neg) Ur Amphetamines Screen (Neg) U Benzodiazepines Scrn (Neg) Urine Cocaine Screen (Neg) U Cannabinoids Screen (Neg) Serum Alcohol (0-5) mg/dL Blood Type B Positive Blood Type Recheck Required Antibody Screen Negative 05/06/18 05/06/18 05/06/18 Range/Units 21:04 21:04 21:20 WBC (4.0-11.0) th/mm3 RBC (4.00-5.30) mil/mm3 Hgb (11.6-15.3) gm/dL Hct (35.0-46.0) % MCV (80.0-100.0) fL MCH (27.0-34.0) pg MCHC (32.0-36.0) % RDW (11.6-17.2) % Plt Count (150-450) th/mm3 MPV (7.0-11.0) fL Neut % (Auto) (16.0-70.0) % Lymph % (Auto) (9.0-44.0) % [place] % (Auto) (0.0-8.0) % Eos % (Auto) (0.0-4.0) % Baso % (Auto) (0.0-2.0) % Neut # (Auto) (1.8-7.7) th/mm3 Lymph # (Auto) (1.0-4.8) th/mm3 [place] # (Auto) (0.0-0.9) th/mm3 Eos # (Auto) (0.0-0.4) th/mm3 Baso # (Auto) (0.0-0.2) th/mm3 WBC Differential Differential Comment PT (9.8-11.6) sec INR Ratio APTT (24.3-30.1) sec Sodium (136-145) meq/L Potassium (3.5-5.1) meq/L Chloride (98-107) meq/L Carbon Dioxide (21.0-32.0) meq/L Anion Gap (5-15) meq/L BUN (7-18) mg/dL Creatinine (0.50-1.00) mg/dL Estimated GFR (>89) mL/min Random Glucose (74-106) mg/dL Lactic Acid 0.7 (0.4-2.0) mmol/L Calcium (8.5-10.1) mg/dL Magnesium (1.5-2.5) mg/dL Total Bilirubin (0.2-1.0) mg/dL AST (15-37) U/L ALT (10-53) U/L Alkaline Phosphatase (45-117) U/L Ammonia (11-32) mcmol/L Total Creatine Kinase (26-192) U/L CK-MB (CK-2) (0.5-3.6) ng/mL CK-MB (CK-2) % (0.0-4.0) % Troponin I (0.02-0.05) ng/mL Total Protein (6.4-8.2) g/dL Albumin (3.4-5.0) g/dL TSH (0.358-3.740) uIU/mL Urine Color (Yellw/Straw) Urine Clarity (Clear) Urine pH (5.0-8.5) Ur Specific [place] (1.002-1.035) Urine Protein (Neg-Trace) mg/dL Urine Glucose (UA) (Negative) mg/dL Urine Ketones (Negative) mg/dL Urine Occult Blood (Negative) Urine Nitrate (Negative) Urine Bilirubin (Negative) Urine Urobilinogen (Less than 2) mg/dL Ur Leukocyte Esterase (Negative) Urine WBC (0-5) /hpf Ur Squamous Epith Cells (0-5) /hpf Hyaline Casts (0-3) /lpf Urine Mucus (Occasional) /lpf Micro UA Comment Urine Culture Comments Salicylates (2.8-20.0) mg/dL Urine Opiates Screen Pos H (Neg) Acetaminophen Cancelled (10.0-30.0) mcg/mL Ur Barbiturates Screen Neg (Neg) Ur Amphetamines Screen Neg (Neg) U Benzodiazepines Scrn Neg (Neg) Urine Cocaine Screen Pos H (Neg) U Cannabinoids Screen Neg (Neg) Serum Alcohol (0-5) mg/dL Blood Type Blood Type Recheck Antibody Screen 05/06/18 05/07/18 Range/Units 21:20 03:38 WBC (4.0-11.0) th/mm3 RBC (4.00-5.30) mil/mm3 Hgb (11.6-15.3) gm/dL Hct (35.0-46.0) % MCV (80.0-100.0) fL MCH (27.0-34.0) pg MCHC (32.0-36.0) % RDW (11.6-17.2) % Plt Count (150-450) th/mm3 MPV (7.0-11.0) fL Neut % (Auto) (16.0-70.0) % Lymph % (Auto) (9.0-44.0) % [place] % (Auto) (0.0-8.0) % Eos % (Auto) (0.0-4.0) % Baso % (Auto) (0.0-2.0) % Neut # (Auto) (1.8-7.7) th/mm3 Lymph # (Auto) (1.0-4.8) th/mm3 [place] # (Auto) (0.0-0.9) th/mm3 Eos # (Auto) (0.0-0.4) th/mm3 Baso # (Auto) (0.0-0.2) th/mm3 WBC Differential Differential Comment PT (9.8-11.6) sec INR Ratio APTT (24.3-30.1) sec Sodium (136-145) meq/L Potassium (3.5-5.1) meq/L Chloride (98-107) meq/L Carbon Dioxide (21.0-32.0) meq/L Anion Gap (5-15) meq/L BUN (7-18) mg/dL Creatinine (0.50-1.00) mg/dL Estimated GFR (>89) mL/min Random Glucose (74-106) mg/dL Lactic Acid (0.4-2.0) mmol/L Calcium (8.5-10.1) mg/dL Magnesium 2.3 (1.5-2.5) mg/dL Total Bilirubin (0.2-1.0) mg/dL AST (15-37) U/L ALT (10-53) U/L Alkaline Phosphatase (45-117) U/L Ammonia (11-32) mcmol/L Total Creatine Kinase (26-192) U/L CK-MB (CK-2) (0.5-3.6) ng/mL CK-MB (CK-2) % (0.0-4.0) % Troponin I (0.02-0.05) ng/mL Total Protein (6.4-8.2) g/dL Albumin (3.4-5.0) g/dL TSH (0.358-3.740) uIU/mL Urine Color Yellow (Yellw/Straw) Urine Clarity Clear (Clear) Urine pH 6.0 (5.0-8.5) Ur Specific [place] 1.009 (1.002-1.035) Urine Protein Negative (Neg-Trace) mg/dL Urine Glucose (UA) Negative (Negative) mg/dL Urine Ketones Negative (Negative) mg/dL Urine Occult Blood Negative (Negative) Urine Nitrate Negative (Negative) Urine Bilirubin Negative (Negative) Urine Urobilinogen Less than 2 (Less than 2) mg/dL Ur Leukocyte Esterase Negative (Negative) Urine WBC 1 (0-5) /hpf Ur Squamous Epith Cells 1 (0-5) /hpf Hyaline Casts 42 (0-3) /lpf Urine Mucus Few H (Occasional) /lpf Micro UA Comment Cath-culture not ind Urine Culture Comments Cath-cult not ind Salicylates (2.8-20.0) mg/dL Urine Opiates Screen (Neg) Acetaminophen (10.0-30.0) mcg/mL Ur Barbiturates Screen (Neg) Ur Amphetamines Screen (Neg) U Benzodiazepines Scrn (Neg) Urine Cocaine Screen (Neg) U Cannabinoids Screen (Neg) Serum Alcohol (0-5) mg/dL Blood Type Blood Type Recheck Antibody Screen Imaging Data Radiologist's impression: Head CT 05/07/18 23:02 CONCLUSION: Negative exam Discharge Plan Discharge Disposition Patient Disposition: 30 Still Patient Discharge Condition Condition: Stable Discharge Details Diagnosis: Drug overdose, Drug abuse, SIRS (systemic inflammatory response syndrome) Physicians Team ED Provider: Liliam Melo Primary Care Provider: UNKNOWN, Attending Provider: Rashel Vines Status ED Status: Admitted Patient
[2018-05-06 21:35] LABS: Baso # (Auto) 0.1 th/mm3 (0.0-0.2); Baso % (Auto) 0.6 % (0.0-2.0); Eos # (Auto) 0.1 th/mm3 (0.0-0.4); Eos % (Auto) 0.9 % (0.0-4.0); Hematocrit 34.6 % (35.0-46.0); Hemoglobin 11.8 gm/dL (11.6-15.3); Lymph # (Auto) 3.1 th/mm3 (1.0-4.8); Lymph % (Auto) 20.7 % (9.0-44.0); Mean Corpuscular HGB Conc 34.1 % (32.0-36.0); Mean Corpuscular Hemoglobin 28.1 pg (27.0-34.0); Mean Corpuscular Volume 82.3 fL (80.0-100.0); Mean Platelet Volume 7.3 fL (7.0-11.0); Mono # (Auto) 0.9 th/mm3 (0.0-0.9); Neut # (Auto) 10.7 th/mm3 (1.8-7.7); Neut % (Auto) 71.8 % (16.0-70.0); Platelet Count 496 th/mm3 (150-450); Red Cell Distribution Width 13.9 % (11.6-17.2); White Blood Count 14.8 th/mm3 (4.0-11.0)
[2018-05-06 21:48] LABS: Activated Partial Thrombo Time 34.8 sec (24.3-30.1); Prothrombin Time 10.6 sec (9.8-11.6)
[2018-05-06 22:08] LABS: Bilirubin,Urine Negative (Negative); Clarity,Urine Clear (Clear); Color,Urine Yellow (Yellw/Straw); Glucose,Urine (UA) Negative (Negative); Hyaline Casts,Urine 42 /lpf (0-3); Leukocyte Esterase,Urine Negative (Negative); Mucus,Urine Few /lpf (Occasional); Nitrite,Urine Negative (Negative); Specific Gravity,Urine 1.009 (1.002-1.035); Squamous Epithelial Cell,Urine 1 /hpf (0-5)
[2018-05-06 22:20] LABS: Amphetamine Screen,Urine Neg (Neg); Barbiturate Screen,Urine Neg (Neg); Cannabinoid Screen,Urine Neg (Neg); Cocaine Screen,Urine Pos (Neg)
[2018-05-06 22:24] LABS: Opiate Screen,Urine Pos (Neg)
[2018-05-06 22:24] LABS: Alanine Aminotransferase 45 U/L (10-53); Albumin 3.1 g/dL (3.4-5.0); Alkaline Phosphatase 97 U/L (45-117); Anion Gap 13 meq/L (5-15); Aspartate Aminotransferase 64 U/L (15-37); Blood Urea Nitrogen 8 mg/dL (7-18); Calcium 8.3 mg/dL (8.5-10.1); Carbon Dioxide 26.1 meq/L (21.0-32.0); Chloride 102 meq/L (98-107); Creatine Kinase 244 U/L (26-192); Glomerular Filtration Rate 81 mL/min (>89); Glucose,Random 82 mg/dL (74-106); Sodium 141 meq/L (136-145); Total Protein 7.1 g/dL (6.4-8.2)
[2018-05-06 22:26] LABS: Potassium 2.5 meq/L (3.5-5.1)
[2018-05-06 22:43] LABS: Creatine Kinase MB 4.8 ng/mL (0.5-3.6)
[2018-05-06] MEDS ORDERED: Vancomycin Inj 1 GM/200 ML PIGGYBACK IV.SIG ONE (23:00)
[2018-05-06] MEDS: Potassium Chlor 10 mEq Premix 10 MEQ/100 ML PIGGYBACK IV.SIG SCH (23:02)
[2018-05-06] MEDS ORDERED: Vancomycin Inj 1,000 MG in Sodium Chlor 0.9% Inj 250 ML IV.SIG ONE (23:18)
--- NOTE | 2018-05-07 00:29 | CT ---
EXAM DATE: 05/07/2018 12:23 AM EDT AGE/SEX: 37 years / Female INDICATIONS: Altered mental status. CLINICAL DATA: This is the patient's initial encounter. Patient reports that signs and symptoms have been present for 1 day and indicates a pain score of Nonresponsive. MEDICAL/SURGICAL HISTORY: . IV Drug use. None. RADIATION DOSE: 56.35 CTDI (mGy) COMPARISON: No prior exams available for comparison. TECHNIQUE: CT of the head without contrast. Using automated exposure control and adjustment of the mA and/or kV according to patient size, radiation dose was kept as low as reasonably achievable to ob tain optimal diagnostic quality images. DICOM format image data is available electronically for revi ew and comparison. FINDINGS: Cerebrum: The ventricles are normal for age. No evidence of midline shift, mass lesion, hemorrhage or acute infarction. No extraaxial fluid collections are seen. Posterior Fossa: The cerebellum and brainstem are intact. The 4th ventricle is midline. The cerebe llopontine angle is unremarkable. Extracranial: The visualized portion of the orbits is intact. Skull: The calvaria is intact. No evidence of skull fracture. CONCLUSION: Negative exam Electronically signed by: Marek Hooper MD 05/07/2018 12:28 AM EDT
[2018-05-07] MEDS: Potassium Chlor 10 mEq Premix 10 MEQ/100 ML PIGGYBACK IV.SIG SCH ×2 (00:30→01:12)
[2018-05-07] MEDS ORDERED: Sod Chloride 0.9% Inj 1,000 ML IV.CONT SCH (01:45)
[2018-05-07] MEDS ORDERED: LORazepam 1 MG Tablet PO PRN (01:46)
[2018-05-07] MEDS ORDERED: Haloperidol Inj 5 MG/ML Ampul IV.PUSH PRN (01:46)
--- NOTE | 2018-05-07 01:50 | P.HP ---
History of Present Illness Service: [facility] Primary Care Physician: UNKNOWN History of Present Illness: 37-year-old female with a past medical history significant for IV drug abuse, recently left the hospital [place] on 05/03/18 where she was being treated for a left shoulder and right forearm abscess presents to the emergency department after being found with altered mentation by the water reuse program manager of a local store. Per emergency room documentation the patient was found behind the store with erratic behavior. EMS was called and the [place] [facility] [place]. She was given ketamine in route and is now status post Ativan. She is sleeping comfortably however does not open her eyes to sternal rub. Review of Systems Unable to obtain secondary to patient's clinical condition PMFSH - History History Provided By: Oracle Technical Architect / EMT - Medical History Medical History: Medical History (Last Reviewed 05/03/18 @ 06:04 by Benjamín Hood DO) Drug abuse - Tobacco History Second Hand Smoke Exposure: Yes Smoking Status: Current every day smoker Tobacco Type: Cigarettes - Alcohol History How Often Do You Have a Drink Containing Alcohol: Never - Substance Use History Substance History: Active Abuse - Travel History Recent Travel in the [facility] Within the Last 8 Weeks: No Recent Travel Out of the Country Within the Last 8 Weeks: No Medications and Allergies Active Medications: Active Medications Potassium Chloride (Kcl 10 Meq Premix Inj) 10 meq in 100 mls @ 100 mls/hr IV.SIG Q1H MAG Stop: 05/07/18 01:44 Last Admin: 05/07/18 01:12 Dose: 100 mls/hr Sodium Chloride (Ns Flush) 2 ml IV.FLUSH PRN PRN PRN Reason: FLUSH AFTER USING IV ACCESS Last Admin: 05/07/18 00:14 Dose: 2 ml Allergies Allergy/AdvReac Type Severity Reaction Status Date / Time *MDRO Multi-Drug Resistant Allergy Unknown Uncoded 01/19/16 13:21 Organism Home Medications Medication Instructions Recorded Confirmed Type No Known Home Medications 04/27/18 05/06/18 History Exam Vital signs: Vital Signs 05/06/18 23:46 05/06/18 23:51 Pulse Rate 94 H Respiratory Rate 12 Blood Pressure 127/66 Pulse Oximetry 100 98 Intake & Output 05/06/18 05/06/18 05/07/18 06:59 18:59 06:59 Intake Total 200 / 200 Balance 200 / 200 Weight 40.823 kg Intake: IV 200 / 200 KCl 10 mEq Premix Inj 10 meq In 200 / 200 100 ml @ 100 mls/hr IV.SIG Q1H [facility] Rx#:[id number] Narrative: Gen.: No acute distress. Sleeping comfortably. Head: Normocephalic. Atraumatic. EENT: Pupils equal round and reactive to light. Nose without drainage. Airway intact. Cardiovascular: Regular rate and rhythm. No murmurs, rubs or gallops. Respiratory: Lungs clear to auscultation bilaterally. No wheezes or rhonchi. Abdomen: Soft, nontender, nondistended. No peritoneal signs. Musculoskeletal: No gross deformities. No edema. Skin: Left shoulder soft tissue wound with purulent drainage. Neuro: Patient does not arouse to sternal rub. Results - Labs CBC & Chem 7: 05/06/18 21:04 05/06/18 21:04 Labs: Laboratory Results - last 24 hr 05/06/18 05/06/18 05/06/18 21:04 21:04 21:04 WBC 14.8 H RBC 4.20 Hgb 11.8 Hct 34.6 L MCV 82.3 MCH 28.1 MCHC 34.1 RDW 13.9 Plt Count 496 H MPV 7.3 Neut % (Auto) 71.8 H Lymph % (Auto) 20.7 [place] % (Auto) 6.0 Eos % (Auto) 0.9 Baso % (Auto) 0.6 Neut # (Auto) 10.7 H Lymph # (Auto) 3.1 [place] # (Auto) 0.9 Eos # (Auto) 0.1 Baso # (Auto) 0.1 WBC Differential . Differential Comment Auto diff final PT 10.6 INR 1.0 APTT 34.8 H Sodium 141 Potassium 2.5 L* Chloride 102 Carbon Dioxide 26.1 Anion Gap 13 BUN 8 Creatinine 0.80 Estimated GFR 81 L Random Glucose 82 Lactic Acid Calcium 8.3 L Total Bilirubin 0.4 AST 64 H ALT 45 Alkaline Phosphatase 97 Ammonia Total Creatine Kinase 244 H CK-MB (CK-2) 4.8 H CK-MB (CK-2) % 2.0 Troponin I Less than 0.02 L Total Protein 7.1 Albumin 3.1 L TSH 2.170 Urine Color Urine Clarity Urine pH Ur Specific [place] Urine Protein Urine Glucose (UA) Urine Ketones Urine Occult Blood Urine Nitrate Urine Bilirubin Urine Urobilinogen Ur Leukocyte Esterase Urine WBC Ur Squamous Epith Cells Hyaline Casts Urine Mucus Micro UA Comment Urine Culture Comments Salicylates Urine Opiates Screen Acetaminophen Less than 2.0 L Ur Barbiturates Screen Ur Amphetamines Screen U Benzodiazepines Scrn Urine Cocaine Screen U Cannabinoids Screen Serum Alcohol Less than 3 Blood Type Blood Type Recheck Antibody Screen 05/06/18 05/06/18 05/06/18 21:04 21:04 21:04 WBC RBC Hgb Hct MCV MCH MCHC RDW Plt Count MPV Neut % (Auto) Lymph % (Auto) [place] % (Auto) Eos % (Auto) Baso % (Auto) Neut # (Auto) Lymph # (Auto) [place] # (Auto) Eos # (Auto) Baso # (Auto) WBC Differential Differential Comment PT INR APTT Sodium Potassium Chloride Carbon Dioxide Anion Gap BUN Creatinine Estimated GFR Random Glucose Lactic Acid Calcium Total Bilirubin AST ALT Alkaline Phosphatase Ammonia 23 Total Creatine Kinase CK-MB (CK-2) CK-MB (CK-2) % Troponin I Total Protein Albumin TSH Urine Color Urine Clarity Urine pH Ur Specific [place] Urine Protein Urine Glucose (UA) Urine Ketones Urine Occult Blood Urine Nitrate Urine Bilirubin Urine Urobilinogen Ur Leukocyte Esterase Urine WBC Ur Squamous Epith Cells Hyaline Casts Urine Mucus Micro UA Comment Urine Culture Comments Salicylates Less than 1.7 L Urine Opiates Screen Acetaminophen Ur Barbiturates Screen Ur Amphetamines Screen U Benzodiazepines Scrn Urine Cocaine Screen U Cannabinoids Screen Serum Alcohol Blood Type B Positive Blood Type Recheck Required Antibody Screen Negative 05/06/18 05/06/18 05/06/18 21:04 21:04 21:20 WBC RBC Hgb Hct MCV MCH MCHC RDW Plt Count MPV Neut % (Auto) Lymph % (Auto) [place] % (Auto) Eos % (Auto) Baso % (Auto) Neut # (Auto) Lymph # (Auto) [place] # (Auto) Eos # (Auto) Baso # (Auto) WBC Differential Differential Comment PT INR APTT Sodium Potassium Chloride Carbon Dioxide Anion Gap BUN Creatinine Estimated GFR Random Glucose Lactic Acid 0.7 Calcium Total Bilirubin AST ALT Alkaline Phosphatase Ammonia Total Creatine Kinase CK-MB (CK-2) CK-MB (CK-2) % Troponin I Total Protein Albumin TSH Urine Color Urine Clarity Urine pH Ur Specific [place] Urine Protein Urine Glucose (UA) Urine Ketones Urine Occult Blood Urine Nitrate Urine Bilirubin Urine Urobilinogen Ur Leukocyte Esterase Urine WBC Ur Squamous Epith Cells Hyaline Casts Urine Mucus Micro UA Comment Urine Culture Comments Salicylates Urine Opiates Screen Pos H Acetaminophen Cancelled Ur Barbiturates Screen Neg Ur Amphetamines Screen Neg U Benzodiazepines Scrn Neg Urine Cocaine Screen Pos H U Cannabinoids Screen Neg Serum Alcohol Blood Type Blood Type Recheck Antibody Screen 05/06/18 21:20 WBC RBC Hgb Hct MCV MCH MCHC RDW Plt Count MPV Neut % (Auto) Lymph % (Auto) [place] % (Auto) Eos % (Auto) Baso % (Auto) Neut # (Auto) Lymph # (Auto) [place] # (Auto) Eos # (Auto) Baso # (Auto) WBC Differential Differential Comment PT INR APTT Sodium Potassium Chloride Carbon Dioxide Anion Gap BUN Creatinine Estimated GFR Random Glucose Lactic Acid Calcium Total Bilirubin AST ALT Alkaline Phosphatase Ammonia Total Creatine Kinase CK-MB (CK-2) CK-MB (CK-2) % Troponin I Total Protein Albumin TSH Urine Color Yellow Urine Clarity Clear Urine pH 6.0 Ur Specific [place] 1.009 Urine Protein Negative Urine Glucose (UA) Negative Urine Ketones Negative Urine Occult Blood Negative Urine Nitrate Negative Urine Bilirubin Negative Urine Urobilinogen Less than 2 Ur Leukocyte Esterase Negative Urine WBC 1 Ur Squamous Epith Cells 1 Hyaline Casts 42 Urine Mucus Few H Micro UA Comment Cath-culture not ind Urine Culture Comments Cath-cult not ind Salicylates Urine Opiates Screen Acetaminophen Ur Barbiturates Screen Ur Amphetamines Screen U Benzodiazepines Scrn Urine Cocaine Screen U Cannabinoids Screen Serum Alcohol Blood Type Blood Type Recheck Antibody Screen - Imaging Impressions Head CT 05/07/18 23:02 CONCLUSION: Negative exam Caprini VTE Risk Assessment Caprini VTE Risk Assessment: No/Low Risk (score <= 1) Caprini Risk Assessment Model: Point Value = 1 Point Value = 2 Point Value = 3 Point Value = 5 Age 41-60 Minor surgery BMI > 25 kg/m2 Swollen legs Varicose veins or History of unexplained or recurrent spontaneous Oral contraceptives or hormone replacement Sepsis (< 1 month) Serious lung disease, including pneumonia (< 1 month) Abnormal pulmonary function Acute myocardial infarction Congestive heart failure (< 1 month) History of inflammatory bowel disease Medical patient at bed rest Age 61-74 Arthroscopic surgery Major open surgery (> 45 min) Laparoscopic surgery (> 45 min) Malignancy Confined to bed (> 72 hours) Immobilizing plaster cast Central venous access Age >= 75 History of VTE Family history of VTE Factor V Leiden Prothrombin [id number] Lupus anticoagulant Anticardiolipin antibodies Elevated serum homocysteine Heparin-induced thrombocytopenia Other congenital or acquired thrombophilia Stroke (< 1 month) Elective arthroplasty Hip, pelvis, or leg fracture Acute spinal cord injury (< 1 month) Prophylaxis Regimen: Total Risk Factor Score Risk Level Prophylaxis Regimen 0-1 Low Early ambulation 2 Moderate Order ONE of the following: *Sequential Compression Device (SCD) *Heparin 5000 units SQ BID 3-4 Higher Order ONE of the following medications: *Heparin 5000 units SQ TID *Enoxaparin/Lovenox 40 mg SQ daily (WT < 150 kg, CrCl > 30 mL/min) *Enoxaparin/Lovenox 30 mg SQ daily (WT < 150 kg, CrCl > 10-29 mL/min) *Enoxaparin/Lovenox 30 mg SQ BID (WT < 150 kg, CrCl > 30 mL/min) AND/OR *Sequential Compression Device (SCD) 5 or more Highest Order ONE of the following medications: *Heparin 5000 units SQ TID (Preferred with Epidurals) *Enoxaparin/Lovenox 40 mg SQ daily (WT < 150 kg, CrCl > 30 mL/min) *Enoxaparin/Lovenox 30 mg SQ daily (WT < 150 kg, CrCl > 10-29 mL/min) *Enoxaparin/Lovenox 30 mg SQ BID (WT < 150 kg, CrCl > 30 mL/min) AND *Sequential Compression Device (SCD) Assessment and Plan - Plan Assessment/plan: 1. Abscesses Status post I&D on 05/03/18 Vancomycin/Zosyn Initial wound culture positive for group A and B strep and staph aureus Initial blood cultures 3 days ago no growth to date De-escalate antibiotics once patient able to tolerate p.o. 2. Hypokalemia Potassium 2.5 IV supplementation Monitor BMP Magnesium level pending 3. IV drug abuse Patient with known history of IV drug abuse FEN Regular diet Electrolytes: As above NS at 70 cc/hour
[2018-05-07] MEDS ORDERED: Vancomycin Consult Pharmacy 1 EACH OTHER SCH (02:00)
[2018-05-07] MEDS: Piperacil/Tazo 3.375 GM Premix 50 ML IV.SIG SCH ×4 (02:20→21:49)
[2018-05-07] MEDS: Potassium Chlor 20 mEq Premix 20 MEQ/100 ML PIGGYBACK IV.SIG SCH ×2 (02:40→04:55)
[2018-05-07 12:36] LABS: Baso # (Auto) 0.1 th/mm3 (0.0-0.2); Baso % (Auto) 1.3 % (0.0-2.0); Eos # (Auto) 0.1 th/mm3 (0.0-0.4); Hematocrit 36.5 % (35.0-46.0); Hemoglobin 12.4 gm/dL (11.6-15.3); Lymph # (Auto) 2.3 th/mm3 (1.0-4.8); Lymph % (Auto) 24.4 % (9.0-44.0); Mean Corpuscular HGB Conc 33.9 % (32.0-36.0); Mean Corpuscular Hemoglobin 28.4 pg (27.0-34.0); Mean Corpuscular Volume 83.8 fL (80.0-100.0); Mean Platelet Volume 7.4 fL (7.0-11.0); Mono # (Auto) 0.5 th/mm3 (0.0-0.9); Mono % (Auto) 4.9 % (0.0-8.0); Neut # (Auto) 6.3 th/mm3 (1.8-7.7); Neut % (Auto) 68.4 % (16.0-70.0); Platelet Count 430 th/mm3 (150-450); Red Blood Count 4.35 mil/mm3 (4.00-5.30); Red Cell Distribution Width 14.2 % (11.6-17.2); White Blood Count 9.3 th/mm3 (4.0-11.0)
[2018-05-07 13:11] LABS: Sodium 142 meq/L (136-145)
[2018-05-07 13:12] LABS: Alanine Aminotransferase 49 U/L (10-53); Alkaline Phosphatase 89 U/L (45-117); Anion Gap 10 meq/L (5-15); Aspartate Aminotransferase 79 U/L (15-37); Blood Urea Nitrogen 8 mg/dL (7-18); Calcium 8.1 mg/dL (8.5-10.1); Carbon Dioxide 24.2 meq/L (21.0-32.0); Chloride 108 meq/L (98-107); Glomerular Filtration Rate Greater Than 89 mL/min (>89); Glucose,Random 67 mg/dL (74-106); Total Protein 6.9 g/dL (6.4-8.2)
[2018-05-07] MEDS: Vancomycin Inj 750 MG in Sodium Chlor 0.9% Inj 250 ML IV.SIG SCH (15:50)
[2018-05-08] MEDS: Vancomycin Inj 750 MG in Sodium Chlor 0.9% Inj 250 ML IV.SIG SCH ×2 (02:30→14:55)
[2018-05-08] MEDS: Piperacil/Tazo 3.375 GM Premix 50 ML IV.SIG SCH ×4 (02:31→20:58)
[2018-05-08] MEDS: oxyCODONE/Acetaminophen 10/325 Tablet PO PRN ×4 (09:38→23:09)
--- NOTE | 2018-05-08 10:17 | P.PNIM ---
Subjective Interval history: Patient's primary complaint today is pain. Lethargy has resolved. She has a history of leaving AMA. She is encouraged to stay in the hospital for treatment. I encouraged her to be more open if she is having any withdrawal symptoms as this can be managed medically. Physical Exam Vital signs: Vital Signs 05/07/18 10:24 05/07/18 12:10 05/07/18 15:28 Temperature Pulse Rate 89 85 77 Respiratory Rate 15 16 16 Blood Pressure 110/66 99/50 L 104/59 L Pulse Oximetry 100 100 100 05/07/18 20:00 05/08/18 00:00 05/08/18 04:00 Temperature 99.7 F H 97.3 F L 98.4 F Pulse Rate 102 H 79 85 Respiratory Rate 18 18 18 Blood Pressure 96/62 L 110/53 L 112/56 L Pulse Oximetry 98 98 99 05/08/18 08:00 Temperature 98.4 F Pulse Rate 81 Respiratory Rate 16 Blood Pressure 111/63 Pulse Oximetry 99 Intake & Output 05/07/18 05/08/18 05/08/18 18:59 06:59 18:59 Intake Total 1100 / 1100 320 / 320 1000 / 1000 Output Total 900 / 900 450 / 450 Balance 200 / 200 -130 / -130 1000 / 1000 Weight 40.9 kg 40.9 kg Intake: IV 1100 / 1100 100 / 100 1000 / 1000 NS + KCl 20 mEq Inj 1,000 ML @ 1000 / 1000 1000 / 1000 70 mls/hr IV.CONT .[id number] [facility] Rx#:[id number] Zosyn 3.375 GM Premix 50 ML @ 100 / 100 100 / 100 100 mls/hr IV.SIG Q6H [facility] Rx#: [id number] Vancomycin Inj 750 MG In NS Inj 0 / 0 250 ML @ 250 mls/hr IV.SIG Q12H [facility] Rx#:[id number] Oral 220 / 220 Output: Urine 450 / 450 Urine Amount (Catheter) 900 / 900 Indwelling Urethral Catheter 900 / 900 Other: Weight On Admission 40.823 kg Narrative: GENERAL: NAD, A&Ox3 HEAD: Normocephalic. NECK: Supple, trachea midline. No lymphadenopathy. EYES: No scleral icterus. No injection or drainage. CARDIOVASCULAR: Regular rate and rhythm without murmurs, gallops, or rubs. RESPIRATORY: Breath sounds equal bilaterally. No accessory muscle use. GASTROINTESTINAL: Abdomen soft, non-tender, nondistended. MUSCULOSKELETAL: No cyanosis, or edema. SKIN: Warm and dry. Cellulitis and abscess left arm. NEURO: No focal neurological deficits. - Urinary Catheter Management Indwelling Urethral Catheter Cath placed during this visit: no Results - Labs CBC & Chem 7: 05/07/18 12:06 05/07/18 12:06 Laboratory Results - last 24 hr 05/07/18 05/07/18 05/07/18 12:06 12:06 15:40 WBC 9.3 RBC 4.35 Hgb 12.4 Hct 36.5 MCV 83.8 MCH 28.4 MCHC 33.9 RDW 14.2 Plt Count 430 MPV 7.4 Neut % (Auto) 68.4 Lymph % (Auto) 24.4 [place] % (Auto) 4.9 Eos % (Auto) 1.0 Baso % (Auto) 1.3 Neut # (Auto) 6.3 Lymph # (Auto) 2.3 [place] # (Auto) 0.5 Eos # (Auto) 0.1 Baso # (Auto) 0.1 WBC Differential . Differential Comment Auto diff final Sodium 142 Potassium 4.0 D Chloride 108 H Carbon Dioxide 24.2 Anion Gap 10 BUN 8 Creatinine 0.58 Estimated GFR Greater than 89 POC Glucose 61 L Random Glucose 67 L Calcium 8.1 L Total Bilirubin 0.5 AST 79 H ALT 49 Alkaline Phosphatase 89 Total Protein 6.9 Albumin 3.0 L 05/07/18 15:54 WBC RBC Hgb Hct MCV MCH MCHC RDW Plt Count MPV Neut % (Auto) Lymph % (Auto) [place] % (Auto) Eos % (Auto) Baso % (Auto) Neut # (Auto) Lymph # (Auto) [place] # (Auto) Eos # (Auto) Baso # (Auto) WBC Differential Differential Comment Sodium Potassium Chloride Carbon Dioxide Anion Gap BUN Creatinine Estimated GFR POC Glucose 72 Random Glucose Calcium Total Bilirubin AST ALT Alkaline Phosphatase Total Protein Albumin Assessment and Plan - Plan 37-year-old female admitted secondary to left arm abscess with outpatient treatment failure secondary to drug abuse Abscesses Status post I&D on 05/03/18 Vancomycin/Zosyn Previous wound culture positive for group A and B strep and staph aureus Previous blood cultures are negative Obtain echocardiogram to screen for vegetations Percocet for pain Hypokalemia Monitor and replace as needed History of IV drug abuse Monitor for withdrawals If patient wishes to transition to methadone clinic will consider methadone as of pain option towards discharge DVT prophylaxis SCDs, Srinox
[2018-05-08] MEDS ORDERED: Pharmacy Ordered Lab Info OTHER ONE (13:45)
[2018-05-09] MEDS: Vancomycin Inj 1,000 MG in Sodium Chlor 0.9% Inj 250 ML IV.SIG SCH ×2 (01:28→13:03)
[2018-05-09] MEDS: oxyCODONE/Acetaminophen 10/325 Tablet PO PRN ×2 (03:18→09:02)
[2018-05-09] MEDS: Piperacil/Tazo 3.375 GM Premix 50 ML IV.SIG SCH ×2 (03:19→09:03)
[2018-05-09 06:26] LABS: Baso % (Auto) 0.4 % (0.0-2.0); Eos # (Auto) 0.2 th/mm3 (0.0-0.4); Eos % (Auto) 2.5 % (0.0-4.0); Hematocrit 33.4 % (35.0-46.0); Hemoglobin 11.3 gm/dL (11.6-15.3); Lymph # (Auto) 3.3 th/mm3 (1.0-4.8); Lymph % (Auto) 45.4 % (9.0-44.0); Mean Corpuscular HGB Conc 33.9 % (32.0-36.0); Mean Corpuscular Hemoglobin 28.1 pg (27.0-34.0); Mean Corpuscular Volume 82.9 fL (80.0-100.0); Mean Platelet Volume 7.4 fL (7.0-11.0); Mono # (Auto) 0.6 th/mm3 (0.0-0.9); Neut # (Auto) 3.2 th/mm3 (1.8-7.7); Neut % (Auto) 43.7 % (16.0-70.0); Platelet Count 389 th/mm3 (150-450); Red Blood Count 4.03 mil/mm3 (4.00-5.30); White Blood Count 7.3 th/mm3 (4.0-11.0)
[2018-05-09 06:38] LABS: Alanine Aminotransferase 34 U/L (10-53); Albumin 2.1 g/dL (3.4-5.0); Alkaline Phosphatase 73 U/L (45-117); Anion Gap 10 meq/L (5-15); Aspartate Aminotransferase 37 U/L (15-37); Blood Urea Nitrogen 6 mg/dL (7-18); Calcium 7.4 mg/dL (8.5-10.1); Carbon Dioxide 23.2 meq/L (21.0-32.0); Chloride 112 meq/L (98-107); Glomerular Filtration Rate Greater Than 89 mL/min (>89); Glucose,Random 94 mg/dL (74-106); Potassium 4.2 meq/L (3.5-5.1); Total Protein 5.3 g/dL (6.4-8.2)
[2018-05-09 06:40] LABS: Sodium 145 meq/L (136-145)
[2018-05-09] MEDS ORDERED: Enoxaparin Inj 40 MG/0.4 ML Syringe SQ SCH (09:00)
--- NOTE | 2018-05-09 09:52 | P.PNIM ---
Subjective Interval history: Echocardiogram pending to evaluate for infective endocarditis. No fevers. Patient responding well to antibiotics. Physical Exam Vital signs: Vital Signs 05/08/18 12:00 05/08/18 16:00 05/08/18 20:00 Temperature 98.0 F 98.0 F 98 F Pulse Rate 84 87 73 Respiratory Rate 16 18 18 Blood Pressure 94/53 L 100/53 L 93/54 L Pulse Oximetry 98 98 99 05/09/18 00:00 05/09/18 04:00 05/09/18 08:00 Temperature 98.2 F 97.9 F Pulse Rate 72 68 Respiratory Rate 18 18 14 Blood Pressure 95/53 L 92/52 L 99/56 L Pulse Oximetry 98 98 98 Intake & Output 05/08/18 05/09/18 05/09/18 18:59 06:59 18:59 Intake Total 1700 / 1700 1907.5 / 1907.5 Output Total 625 / 625 450 / 450 Balance 1075 / 1075 1457.5 / 1457.5 Intake: IV 1100 / 1100 1607.5 / 1607.5 NS + KCl 20 mEq Inj 1,000 ML @ 1000 / 1000 1000 / 1000 70 mls/hr IV.CONT .[id number] [facility] Rx#:[id number] Zosyn 3.375 GM Premix 50 ML @ 100 / 100 100 / 100 100 mls/hr IV.SIG Q6H [facility] Rx#: [id number] Vancomycin Inj 1,000 MG In NS 250 / 250 Inj 250 ML @ 250 mls/hr IV.SIG Q12H [facility] Rx#:[id number] Vancomycin Inj 750 MG In NS Inj 257.5 / 257.5 250 ML @ 250 mls/hr IV.SIG Q12H [facility] Rx#:[id number] Oral 600 / 600 300 / 300 Output: Urine 625 / 625 450 / 450 Other: Date of Last Bowel Movement 05/08/18 # Bowel Movements 1 Narrative: GENERAL: NAD, A&Ox3 HEAD: Normocephalic. NECK: Supple, trachea midline. No lymphadenopathy. EYES: No scleral icterus. No injection or drainage. CARDIOVASCULAR: Regular rate and rhythm without murmurs, gallops, or rubs. RESPIRATORY: Breath sounds equal bilaterally. No accessory muscle use. GASTROINTESTINAL: Abdomen soft, non-tender, nondistended. MUSCULOSKELETAL: No cyanosis, or edema. SKIN: Warm and dry. Decreased erythema and no drainage at left shoulder wound. NEURO: No focal neurological deficits. - Urinary Catheter Management Indwelling Urethral Catheter Cath placed during this visit: no Results - Labs CBC & Chem 7: 05/09/18 04:23 05/09/18 04:23 Laboratory Results - last 24 hr 05/08/18 05/09/18 05/09/18 13:20 04:23 04:23 WBC 7.3 RBC 4.03 Hgb 11.3 L Hct 33.4 L MCV 82.9 MCH 28.1 MCHC 33.9 RDW 15.0 Plt Count 389 MPV 7.4 Neut % (Auto) 43.7 Lymph % (Auto) 45.4 H Weber % (Auto) 8.0 Eos % (Auto) 2.5 Baso % (Auto) 0.4 Neut # (Auto) 3.2 Lymph # (Auto) 3.3 [place] # (Auto) 0.6 Eos # (Auto) 0.2 Baso # (Auto) 0.0 WBC Differential . Differential Comment Auto diff final Hematology Comments Sodium 145 Potassium 4.2 Chloride 112 H Carbon Dioxide 23.2 Anion Gap 10 BUN 6 L Creatinine 0.53 Estimated GFR Greater than 89 Random Glucose 94 Calcium 7.4 L* Prot Corrected Calcium 8.4 L Total Bilirubin 0.2 AST 37 ALT 34 Alkaline Phosphatase 73 Total Protein 5.3 L D Albumin 2.1 L D Vancomycin Trough 10.4 H Assessment and Plan - Plan 37-year-old female admitted secondary to left arm abscess with outpatient treatment failure secondary to drug abuse Patient is healing well. Echocardiogram report pending. Discharge planning will be based on echocardiogram findings. Methadone initiated and patient is advised to continue care at methadone clinic upon discharge. Abscesses Status post I&D on 05/03/18 Vancomycin/Zosyn Previous wound culture positive for group A and B strep and staph aureus Previous blood cultures are negative Obtain echocardiogram to screen for vegetations Percocet for pain Hypokalemia Monitor and replace as needed History of IV drug abuse Monitor for withdrawals If patient wishes to transition to methadone clinic will consider methadone as of pain option towards discharge DVT prophylaxis SCDs, Lovenox
[2018-05-09] MEDS ORDERED: Methadone 10 MG Tablet PO ONE (11:00)
--- NOTE | 2018-05-09 12:43 | ECHRPT ---
Indication: SEPSIS ENDOCARDITIS CONCLUSIONS Normal left ventricular size. Wall thickness is normal. The left ventricular systolic function is normal with an estimated ejection fraction in the range of 55-60%. Trace mitral valve regurgitation. There is mild tricuspid valve regurgitation. The estimated pulmonary arterial pressure is 46 mmHg. No vegetations noted BP: / HR: Rhythm: MEASUREMENTS (Male / Female) Normal Values Technical Quality: 2D ECHO LV Diastolic Diameter PLAX 4.3 cm 4.2 - 5.9 / 3.9 - 5.3 cm LV Systolic Diameter PLAX 3.0 cm IVS Diastolic Thickness 0.6 cm 0.6 - 1.0 / 0.6 - 0.9 cm LVPW Diastolic Thickness 0.5 cm 0.6 - 1.0 / 0.6 - 0.9 cm LV Relative Wall Thickness 0.2 LA Systolic Diameter LX 2.7 cm 3.0 - 4.0 / 2.7 - 3.8 cm DOPPLER TR Peak Velocity 299.0 cm/s TR Peak Gradient 35.8 mmHg Right Atrial Pressure 10.0 mmHg Pulmonary Artery Systolic Pressu 45.8 mmHg Right Ventricular Systolic Press 45.8 mmHg FINDINGS LEFT VENTRICLE Normal left ventricular size. Wall thickness is normal. The left ventricular systolic function is normal with an estimated ejection fraction in the range of 55-60%. RIGHT VENTRICLE Normal right ventricular size and systolic function. LEFT ATRIUM The left atrial size is normal. RIGHT ATRIUM The right atrial size is normal. ATRIAL SEPTUM Normal atrial septal thickness without atrial level shunting by limited color doppler interrogation. AORTA The aortic root and proximal ascending aorta are normal in size on limited imaging. MITRAL VALVE Trace mitral valve regurgitation. AORTIC VALVE Trileaflet aortic valve. No aortic valve stenosis or regurgitation. TRICUSPID VALVE There is mild tricuspid valve regurgitation. The estimated pulmonary arterial pressure is 46 mmHg. PULMONARY VALVE No pulmonary valve regurgitation or stenosis. VESSELS The inferior vena cava is normal in size. PERICARDIUM No pericardial effusion. Carlyle Cazares MD, FACC (Electronically Signed) Final Date:09 May 2018 12:42
--- NOTE | 2018-05-09 13:44 | P.DS ---
Date of admission: 05/07/18 03:35 Primary care physician: UNKNOWN Brief History from admission: 37-year-old female with a past medical history significant for IV drug abuse, recently left the hospital [place] on 05/03/18 where she was being treated for a left shoulder and right forearm abscess presents to the emergency department after being found with altered mentation by the manager of purchasing of a local store. Per emergency room documentation the patient was found behind the store with erratic behavior. EMS was called and the [place] [facility] [place] She was given ketamine in route and is now status post Ativan. She is sleeping comfortably however does not open her eyes to sternal rub. DS: Medications - Discharge Medications Prescriptions: sulfamethoxazole-trimethoprim [Bactrim DS] 1 tab PO BID #16 tab DS: Summary Hospital Course: Mrs. Armstrong is a 37-year-old female. She has a history of IV drug abuse. She had an I&D of her left arm on 05/03/2018. Michelle-sensitivities present on cultures. She came back due to outpatient treatment failure, she had not taken any antibiotics. She was also found with altered mental status due to drug abuse. At this point methadone has been started and she is recommended to follow-up with the methadone clinic as an outpatient. Antibiotics are prescribed to be on for 8 more days. Infection is under good control now. An echocardiogram shows no evidence of infective endocarditis. She is medically stable and cleared for discharge home today. - Time Spent with Patient Total time spent providing and/or coordinating discharge services: Exam Vital signs: Vital Signs 05/08/18 16:00 05/08/18 20:00 05/09/18 00:00 Temperature 98.0 F 98 F 98.2 F Pulse Rate 87 73 72 Respiratory Rate 18 18 18 Blood Pressure 100/53 L 93/54 L 95/53 L Pulse Oximetry 98 99 98 05/09/18 04:00 05/09/18 08:00 05/09/18 12:00 Temperature 97.9 F 98.1 F Pulse Rate 68 76 Respiratory Rate 18 14 14 Blood Pressure 92/52 L 99/56 L 95/54 L Pulse Oximetry 98 98 98 Intake & Output 05/08/18 05/09/18 05/09/18 18:59 06:59 18:59 Intake Total 1700 / 1700 1907.5 / 1907.5 1000 / 1000 Output Total 625 / 625 450 / 450 Balance 1075 / 1075 1457.5 / 1457.5 1000 / 1000 Intake: IV 1100 / 1100 1607.5 / 1607.5 1000 / 1000 NS + KCl 20 mEq Inj 1,000 ML @ 1000 / 1000 1000 / 1000 1000 / 1000 70 mls/hr IV.CONT .[id number] [facility] Rx#:[id number] Zosyn 3.375 GM Premix 50 ML @ 100 / 100 100 / 100 100 mls/hr IV.SIG Q6H [facility] Rx#: [id number] Vancomycin Inj 1,000 MG In NS 250 / 250 Inj 250 ML @ 250 mls/hr IV.SIG Q12H [facility] Rx#:[id number] Vancomycin Inj 750 MG In NS Inj 257.5 / 257.5 250 ML @ 250 mls/hr IV.SIG Q12H [facility] Rx#:[id number] Oral 600 / 600 300 / 300 Output: Urine 625 / 625 450 / 450 Other: Date of Last Bowel Movement 05/08/18 # Bowel Movements 1 Results Procedures completed during hospitalization: None Labs on day of discharge: Labs from last 24 hours 05/09/18 05/09/18 05/08/18 04:23 04:23 13:20 WBC 7.3 RBC 4.03 Hgb 11.3 L Hct 33.4 L MCV 82.9 MCH 28.1 MCHC 33.9 RDW 15.0 Plt Count 389 MPV 7.4 Neut % (Auto) 43.7 Lymph % (Auto) 45.4 H [place] % (Auto) 8.0 Eos % (Auto) 2.5 Baso % (Auto) 0.4 Neut # (Auto) 3.2 Lymph # (Auto) 3.3 [place] # (Auto) 0.6 Eos # (Auto) 0.2 Baso # (Auto) 0.0 WBC Differential . Differential Comment Auto diff final Hematology Comments Sodium 145 Potassium 4.2 Chloride 112 H Carbon Dioxide 23.2 Anion Gap 10 BUN 6 L Creatinine 0.53 Estimated GFR Greater than 89 Random Glucose 94 Calcium 7.4 L* Prot Corrected Calcium 8.4 L Total Bilirubin 0.2 AST 37 ALT 34 Alkaline Phosphatase 73 Total Protein 5.3 L D Albumin 2.1 L D Vancomycin Trough 10.4 H - Impressions ITS Impressions Head CT 05/07/18 23:02 CONCLUSION: Negative exam Discharge Plan - Discharge Disposition Patient Disposition: 01 Discharge Home - Discharge Condition Condition: Stable - Discharge Order Discharge Orders: Discharge Order (Routine); Ordered 05/09/18 Ordered By: Rashel Vines - Discharge Details Anticipated Discharge Date: 05/09/18 - Physicians Team Primary Care Provider: UNKNOWN, Attending Provider: Rashel Vines
[2018-05-10] MEDS ORDERED: Methadone 10 MG Tablet PO SCH (09:00)
[2018-05-10] MEDS ORDERED: Pharmacy Ordered Lab Info OTHER ONE (13:45)
== END 2018-05-09 16:35 | disposition home or self-care (01) ==
LOC: NEPC 20:23 → NEDA 05-07 03:35 → MERGE 05-07 03:35 → NEDH 05-07 09:14 → N03 05-07 17:00
PROVIDERS: ADMIT Hospitalist; ATTEND Hospitalist

== ENCOUNTER 2018-05-20 19:43 | Inpatient (IN) ==
[2018-05-20] MEDS ORDERED: Piperacil/Tazo 3.375 GM Premix 50 ML IV.SIG ONE (20:05)
[2018-05-20] MEDS ORDERED: Vancomycin Inj 1 GM/200 ML PIGGYBACK IV.SIG ONE (20:05)
[2018-05-20] MEDS ORDERED: Sod Chloride 0.9% Inj 1,000 ML IV.SIG ONE (20:05)
[2018-05-20] MEDS ORDERED: Vancomycin Inj 1,000 MG in Sodium Chlor 0.9% Inj 250 ML IV.SIG ONE (20:15)
--- NOTE | 2018-05-20 20:16 | ED ---
HPI General Chief complaint: Overdose Stated complaint: Poss OD Time Seen by Provider: 05/20/18 19:51 Source: patient and EMS Mode of arrival: EMS Limitations: altered mental status (Agitated, currently on heroin and crack.) History of Present Illness HPI narrative: The patient is a reportedly 38 year old female who presents to the [facility] emergency department with a history of being found agitated, erratic on the street prior to arrival. The patient had crack cocaine on her person according to the police. The patient freely admits to using heroin and crack earlier today. The patient reports that she has a history of IV drug use and a prior history of hepatitis C. The patient reports having nausea and vomiting intermittently. She is unsure how many times she has vomited. The patient additionally reports having severe left shoulder pain. The patient is noted to have an area of redness, and abscess formation at the lateral aspect of the left shoulder. She is unsure how long this is been present. The patient 's review of systems is limited as well as her medical history is limited given her acute agitation and intoxication with heroin and crack cocaine. Related Data Home Medications Medication Instructions Recorded Confirmed No Known Home Medications 05/21/18 05/21/18 Allergies Allergy/AdvReac Type Severity Reaction Status Date / Time No Known Allergies Allergy Verified 05/20/18 21:35 Review of Systems ROS Unobtainable ROS Unobtainable: unobtainable due to mental status PMFSH History History Provided By: Patient and Jet Mechanic / EMT Medical History Medical History Crack cocaine use (Acute) Hepatitis (Acute) Heroin use (Acute) Social History Social History Substance History: Active Abuse Smoking Status: Cognitive impairment Tobacco Type: Cigarettes How Often Do You Have a Drink Containing Alcohol: Unable to Obtain Exam Const General: intoxicated appearing and other (Extremely agitated, flailing around the bed.) Nutritional Appearance: malnourished Orientation: alert, awake, oriented to person, oriented to place and not oriented to time Limitations: altered mental status (Acutely psychotic, agitated, reported history of recent heroin and crack cocaine use) HENMT Head: normocephalic and atraumatic Nose: no nasal discharge and no epistaxis Mouth: moist mucous membranes Teeth and gingiva: poor dentition Throat: posterior oropharynx normal and uvula midline Eyes Sclera: normal sclerae Pupils: PERRL Neck Neck: no meningeal signs, trachea midline and no JVD Resp Effort & Inspection: no use of accessory muscles Auscultation: clear to auscultation bilaterally Cardio Rate: tachycardic (Regular sounding tachycardia, no pulse deficits to the extremities on simultaneous auscultation and palpation of her radial artery) Rhythm: regular rhythm Heart Sounds: no gallops, no murmurs and no rubs GI Inspection: non-distended Palpation: soft, no hepatosplenomegaly and nontender Auscultation: hypoactive bowel sounds Back/Spine/Pelvis Back: no CVA tenderness Cervical Spine: No cervical spinal tenderness Thoracic/Lumbar Spine: No thoracic spinal tenderness and No lumbar spinal tenderness Skin General: dry skin (warm) and erythema (The patient is noted along the left lateral shoulder to have an area of erythema, edema, central fluctuance consistent with cellulitis and central abscess that is exquisitely tender to palpation and warm on palpation. The patient has a second area of erythema, presumed cellulitis as there is no central fluctuance along the right posterior forearm.) Neuro General: alert, awake, oriented (To person and place, however not time, she is oriented to her current situation.) and other (Due to her acute agitation she has difficulty cooperating with formal neurologic examination, however she does not have any of facial asymmetry.) Speech: speech normal Motor: strength 5/5 throughout, no movement abnormalities noted and other ( Patient has psychomotor agitation, frequent movements noted with difficulty controlling spontaneous movements of all extremities.) Extrem General: abnormal to inspection (Please see the skin examination for abnormalities regarding the patient's extremities. The patient is noted on examination of bilateral feet to have abrasions. She has a most prominent abrasion noted along the dorsum of the right foot.), no clubbing, no cyanosis and no edema Psych Affect: other (Agitated) Judgment: poor Course Reevaluation(s) Reevaluation #1: The patient on examination after administration of Ativan 2 mg IM, the patient continued to have psychomotor agitation, intermittent screaming. A dose of Ketamine will be administered IV for further sedation. Reevaluation #2: Apparently, the ketamine had to be obtained from the pharmacy and was taking an extended period of time to be delivered. The patient became increasingly agitated. The patient was then given Haldol 2 mg IM. Benadryl 25 mg IV, and another dose of Ativan 1 mg IV. Consultations Consultation #1: The patient's case including history, pertinent physical examination findings, and laboratory studies were discussed with . It was agreed that the patient would be admitted to the [facility] lab technician's service. Initial Documented Vital Signs Temperature 99.0 F 05/20/18 21:32 Pulse Rate 101 H 05/20/18 21:32 Respiratory Rate 19 05/20/18 21:32 Blood Pressure 117/81 05/20/18 21:32 Pulse Oximetry 100 05/20/18 21:32 Last Documented Vital Signs Temperature 97.0 F L 05/21/18 04:00 Pulse Rate 109 H 05/21/18 07:00 Respiratory Rate 22 05/21/18 06:00 Blood Pressure 97/54 L 05/21/18 06:00 Pulse Oximetry 100 05/21/18 06:00 Critical Care Time Critical Care Time: Yes Total Critical Care Time: 44 Attestation: Aggregate critical care time was 44 minutes. Time to perform other separately billable procedures was not included in the critical care time. My time did not include minutes spent treating any other patients simultaneously or on activities that did not directly contribute to the patient's treatment. The services I provided to this patient were to treat and/or prevent clinically significant deterioration that could result in: Hypoxemia from sedation, versus self-harm from agitation, versus respiratory failure, versus cardiovascular collapse I provided critical care services requiring my management, as noted below: Chart data review, documentation time, medication orders and management, vital sign assessments/reviewing monitor data, ordering and reviewing lab tests, ordering and interpreting/reviewing x-rays and diagnostic studies, care of the patient and discussion of the patient with the admitting physicians. Medical Decision Making MDM Narrative Medical decision making narrative: During the course of the patient's emergency department visit, the patient's history, examination, and differential diagnosis were reviewed with the patient. The patient was placed on a telemetry monitor with oximetry and frequent blood pressure monitoring. The patient had IV access obtained and blood work sent for analysis. Diagnostic evaluation was started regarding the patient's acute altered mentation which is suspected to be related to polysubstance abuse, however there is also a concern for a sepsis related encephalopathy given the patient's multiple areas of cellulitis and abscess formation blood cultures 2 have been drawn, lactic acid will be sent for analysis. During initial attempts at IV access the patient was extremely difficult to obtain IV access and due to her psychomotor agitation. While the patient was writhing around in the bed the patient's abscess on the left shoulder spontaneously drained foul-smelling discharge. It was a yellow and brown copious amount of drainage that was obtained. This was cultured. The patient was initially provided normal saline 1 L IV fluid bolus was started. The patient will be given Zosyn 3.375 g IV, vancomycin 1 g IV. The patient required multiple doses of sedative medications and restraints for her and the staff's safety due to her acute agitation. The patient's diagnostic studies were remarkable for a white count of 11.6, platelets 325, neutrophils 70.3, hemoglobin 11.4, PT 10.7, PTT 32, chemistry is remarkable for a calcium of 8.4, BUN 3, AST is 66, albumin 3.3, troponin I less than 0.02, CPK 329, lipase 101. C-reactive protein is elevated at 6.14, lactic acid is 1.9, urinalysis shows no acute abnormality. The patient's chest x-ray showed no acute abnormality. A czbys-no-imax test was negative. The patient's results were discussed with the patient, including the plan of care. I explained that further testing and/ or monitoring is indicated based on the patient's history, examination, and/ or laboratory findings. Therefore, I recommended admission for additional evaluation. The patient expressed understanding and was agreeable with this plan. The patient was admitted to the hospital in critical condition and sent to a bed under the care of the [facility] lab technician's service. Differential Diagnosis Differential Diagnosis: Acute psychosis related to polysubstance abuse, versus sepsis related encephalopathy, versus cellulitis with abscess Medical Records Medical records reviewed: Yes I reviewed the patient's medical records. POC Test Results POC Urine Results: Negative Lab Data Lab results reviewed: Yes I reviewed the patient's lab results. Result diagrams: 05/21/18 05:43 05/21/18 05:43 Lab Results 05/20/18 05/20/18 05/20/18 Range/Units 20:15 20:15 20:15 WBC 16.9 H (4.0-11.0) th/mm3 RBC 4.09 (4.00-5.30) mil/mm3 Hgb 11.6 (11.6-15.3) gm/dL Hct 34.7 L (35.0-46.0) % MCV 84.9 (80.0-100.0) fL MCH 28.5 (27.0-34.0) pg MCHC 33.5 (32.0-36.0) % RDW 15.4 (11.6-17.2) % Plt Count 457 H (150-450) th/mm3 MPV 7.3 (7.0-11.0) fL Neut % (Auto) 77.0 H (16.0-70.0) % Lymph % (Auto) 13.9 (9.0-44.0) % Edwards % (Auto) 8.2 H (0.0-8.0) % Eos % (Auto) 0.2 (0.0-4.0) % Baso % (Auto) 0.7 (0.0-2.0) % Neut # (Auto) 13.0 H (1.8-7.7) th/mm3 Lymph # (Auto) 2.3 (1.0-4.8) th/mm3 Edwards # (Auto) 1.4 H (0.0-0.9) th/mm3 Eos # (Auto) 0.0 (0.0-0.4) th/mm3 Baso # (Auto) 0.1 (0.0-0.2) th/mm3 WBC Differential . Differential Comment Auto diff final PT (9.8-11.6) sec INR Ratio APTT (24.3-30.1) sec Sodium 133 L (136-145) meq/L Potassium 3.9 (3.5-5.1) meq/L Chloride 95 L (98-107) meq/L Carbon Dioxide 26.8 (21.0-32.0) meq/L Anion Gap 11 (5-15) meq/L BUN 3 L (7-18) mg/dL Creatinine 0.78 (0.50-1.00) mg/dL Estimated GFR 64 L (>89) mL/min Random Glucose 85 (74-106) mg/dL Lactic Acid 1.9 (0.4-2.0) mmol/L Calcium 8.4 L (8.5-10.1) mg/dL Prot Corrected Calcium (8.5-10.1) mg/dL Phosphorus (2.5-4.9) mg/dL Magnesium 1.8 (1.5-2.5) mg/dL Total Bilirubin 1.1 H (0.2-1.0) mg/dL AST 66 H (15-37) U/L ALT 47 (10-53) U/L Alkaline Phosphatase 96 (45-117) U/L Total Creatine Kinase 329 H (26-192) U/L CK-MB (CK-2) 5.5 H (0.5-3.6) ng/mL CK-MB (CK-2) % 1.7 (0.0-4.0) % Troponin I Less than 0.02 L (0.02-0.05) ng/mL C-Reactive Protein (0.00-0.30) mg/dL Total Protein 7.4 (6.4-8.2) g/dL Albumin 3.3 L (3.4-5.0) g/dL Lipase 101 (73-393) U/L Urine Color (Yellw/Straw) Urine Clarity (Clear) Urine pH (5.0-8.5) Ur Specific [place] (1.002-1.035) Urine Protein (Neg-Trace) mg/dL Urine Glucose (UA) (Negative) mg/dL Urine Ketones (Negative) mg/dL Urine Occult Blood (Negative) Urine Nitrate (Negative) Urine Bilirubin (Negative) Urine Urobilinogen (Less than 2) mg/dL Ur Leukocyte Esterase (Negative) Urine RBC (0-3) /hpf Urine WBC (0-5) /hpf Urine Mucus (Occasional) /lpf Micro UA Comment Urine Culture Comments 05/20/18 05/20/18 05/21/18 Range/Units 20:15 23:00 03:25 WBC (4.0-11.0) th/mm3 RBC (4.00-5.30) mil/mm3 Hgb (11.6-15.3) gm/dL Hct (35.0-46.0) % MCV (80.0-100.0) fL MCH (27.0-34.0) pg MCHC (32.0-36.0) % RDW (11.6-17.2) % Plt Count (150-450) th/mm3 MPV (7.0-11.0) fL Neut % (Auto) (16.0-70.0) % Lymph % (Auto) (9.0-44.0) % Edwards % (Auto) (0.0-8.0) % Eos % (Auto) (0.0-4.0) % Baso % (Auto) (0.0-2.0) % Neut # (Auto) (1.8-7.7) th/mm3 Lymph # (Auto) (1.0-4.8) th/mm3 Edwards # (Auto) (0.0-0.9) th/mm3 Eos # (Auto) (0.0-0.4) th/mm3 Baso # (Auto) (0.0-0.2) th/mm3 WBC Differential Differential Comment PT 11.6 (9.8-11.6) sec INR 1.1 Ratio APTT (24.3-30.1) sec Sodium (136-145) meq/L Potassium (3.5-5.1) meq/L Chloride (98-107) meq/L Carbon Dioxide (21.0-32.0) meq/L Anion Gap (5-15) meq/L BUN (7-18) mg/dL Creatinine (0.50-1.00) mg/dL Estimated GFR (>89) mL/min Random Glucose (74-106) mg/dL Lactic Acid (0.4-2.0) mmol/L Calcium (8.5-10.1) mg/dL Prot Corrected Calcium (8.5-10.1) mg/dL Phosphorus (2.5-4.9) mg/dL Magnesium (1.5-2.5) mg/dL Total Bilirubin (0.2-1.0) mg/dL AST (15-37) U/L ALT (10-53) U/L Alkaline Phosphatase (45-117) U/L Total Creatine Kinase (26-192) U/L CK-MB (CK-2) (0.5-3.6) ng/mL CK-MB (CK-2) % (0.0-4.0) % Troponin I (0.02-0.05) ng/mL C-Reactive Protein 6.14 H (0.00-0.30) mg/dL Total Protein (6.4-8.2) g/dL Albumin (3.4-5.0) g/dL Lipase (73-393) U/L Urine Color Yellow (Yellw/Straw) Urine Clarity Clear (Clear) Urine pH 6.0 (5.0-8.5) Ur Specific [place] 1.005 (1.002-1.035) Urine Protein Negative (Neg-Trace) mg/dL Urine Glucose (UA) Negative (Negative) mg/dL Urine Ketones Negative (Negative) mg/dL Urine Occult Blood Negative (Negative) Urine Nitrate Negative (Negative) Urine Bilirubin Negative (Negative) Urine Urobilinogen 2.0 H (Less than 2) mg/dL Ur Leukocyte Esterase Negative (Negative) Urine RBC 1 (0-3) /hpf Urine WBC 3 (0-5) /hpf Urine Mucus Few H (Occasional) /lpf Micro UA Comment Cath-culture not ind Urine Culture Comments Cath-cult not ind 05/21/18 05/21/18 05/21/18 Range/Units 05:43 05:43 05:43 WBC 11.6 H (4.0-11.0) th/mm3 RBC 4.02 (4.00-5.30) mil/mm3 Hgb 11.4 L (11.6-15.3) gm/dL Hct 33.9 L (35.0-46.0) % MCV 84.1 (80.0-100.0) fL MCH 28.3 (27.0-34.0) pg MCHC 33.6 (32.0-36.0) % RDW 15.7 (11.6-17.2) % Plt Count 325 (150-450) th/mm3 MPV 7.8 (7.0-11.0) fL Neut % (Auto) 70.3 H (16.0-70.0) % Lymph % (Auto) 20.7 (9.0-44.0) % Edwards % (Auto) 7.1 (0.0-8.0) % Eos % (Auto) 1.0 (0.0-4.0) % Baso % (Auto) 0.9 (0.0-2.0) % Neut # (Auto) 8.1 H (1.8-7.7) th/mm3 Lymph # (Auto) 2.4 (1.0-4.8) th/mm3 Edwards # (Auto) 0.8 (0.0-0.9) th/mm3 Eos # (Auto) 0.1 (0.0-0.4) th/mm3 Baso # (Auto) 0.1 (0.0-0.2) th/mm3 WBC Differential . Differential Comment Auto diff final PT 10.7 (9.8-11.6) sec INR 1.1 Ratio APTT 32.0 H (24.3-30.1) sec Sodium 139 (136-145) meq/L Potassium 3.0 L D (3.5-5.1) meq/L Chloride 104 D (98-107) meq/L Carbon Dioxide 25.0 (21.0-32.0) meq/L Anion Gap 10 (5-15) meq/L BUN 3 L (7-18) mg/dL Creatinine 0.53 (0.50-1.00) mg/dL Estimated GFR Greater than 89 (>89) mL/min Random Glucose 81 (74-106) mg/dL Lactic Acid (0.4-2.0) mmol/L Calcium 7.1 L* D (8.5-10.1) mg/dL Prot Corrected Calcium 7.9 L (8.5-10.1) mg/dL Phosphorus 3.0 (2.5-4.9) mg/dL Magnesium 2.0 (1.5-2.5) mg/dL Total Bilirubin 1.0 (0.2-1.0) mg/dL AST 39 H (15-37) U/L ALT 34 (10-53) U/L Alkaline Phosphatase 69 (45-117) U/L Total Creatine Kinase (26-192) U/L CK-MB (CK-2) (0.5-3.6) ng/mL CK-MB (CK-2) % (0.0-4.0) % Troponin I (0.02-0.05) ng/mL C-Reactive Protein (0.00-0.30) mg/dL Total Protein 5.5 L D (6.4-8.2) g/dL Albumin 2.4 L D (3.4-5.0) g/dL Lipase (73-393) U/L Urine Color (Yellw/Straw) Urine Clarity (Clear) Urine pH (5.0-8.5) Ur Specific [place] (1.002-1.035) Urine Protein (Neg-Trace) mg/dL Urine Glucose (UA) (Negative) mg/dL Urine Ketones (Negative) mg/dL Urine Occult Blood (Negative) Urine Nitrate (Negative) Urine Bilirubin (Negative) Urine Urobilinogen (Less than 2) mg/dL Ur Leukocyte Esterase (Negative) Urine RBC (0-3) /hpf Urine WBC (0-5) /hpf Urine Mucus (Occasional) /lpf Micro UA Comment Urine Culture Comments 05/21/18 Range/Units 05:43 WBC (4.0-11.0) th/mm3 RBC (4.00-5.30) mil/mm3 Hgb (11.6-15.3) gm/dL Hct (35.0-46.0) % MCV (80.0-100.0) fL MCH (27.0-34.0) pg MCHC (32.0-36.0) % RDW (11.6-17.2) % Plt Count (150-450) th/mm3 MPV (7.0-11.0) fL Neut % (Auto) (16.0-70.0) % Lymph % (Auto) (9.0-44.0) % Edwards % (Auto) (0.0-8.0) % Eos % (Auto) (0.0-4.0) % Baso % (Auto) (0.0-2.0) % Neut # (Auto) (1.8-7.7) th/mm3 Lymph # (Auto) (1.0-4.8) th/mm3 Edwards # (Auto) (0.0-0.9) th/mm3 Eos # (Auto) (0.0-0.4) th/mm3 Baso # (Auto) (0.0-0.2) th/mm3 WBC Differential Differential Comment PT (9.8-11.6) sec INR Ratio APTT (24.3-30.1) sec Sodium (136-145) meq/L Potassium (3.5-5.1) meq/L Chloride (98-107) meq/L Carbon Dioxide (21.0-32.0) meq/L Anion Gap (5-15) meq/L BUN (7-18) mg/dL Creatinine (0.50-1.00) mg/dL Estimated GFR (>89) mL/min Random Glucose (74-106) mg/dL Lactic Acid 1.0 (0.4-2.0) mmol/L Calcium (8.5-10.1) mg/dL Prot Corrected Calcium (8.5-10.1) mg/dL Phosphorus (2.5-4.9) mg/dL Magnesium (1.5-2.5) mg/dL Total Bilirubin (0.2-1.0) mg/dL AST (15-37) U/L ALT (10-53) U/L Alkaline Phosphatase (45-117) U/L Total Creatine Kinase (26-192) U/L CK-MB (CK-2) (0.5-3.6) ng/mL CK-MB (CK-2) % (0.0-4.0) % Troponin I (0.02-0.05) ng/mL C-Reactive Protein (0.00-0.30) mg/dL Total Protein (6.4-8.2) g/dL Albumin (3.4-5.0) g/dL Lipase (73-393) U/L Urine Color (Yellw/Straw) Urine Clarity (Clear) Urine pH (5.0-8.5) Ur Specific [place] (1.002-1.035) Urine Protein (Neg-Trace) mg/dL Urine Glucose (UA) (Negative) mg/dL Urine Ketones (Negative) mg/dL Urine Occult Blood (Negative) Urine Nitrate (Negative) Urine Bilirubin (Negative) Urine Urobilinogen (Less than 2) mg/dL Ur Leukocyte Esterase (Negative) Urine RBC (0-3) /hpf Urine WBC (0-5) /hpf Urine Mucus (Occasional) /lpf Micro UA Comment Urine Culture Comments Imaging Data Radiologist's impression: Chest X-Ray 05/20/18 20:02 CONCLUSION: No acute cardiopulmonary disease demonstrated. Discharge Plan Discharge Disposition Patient Disposition: 30 Still Patient Discharge Details Diagnosis: Cellulitis and abscess of other specified site, SIRS (systemic inflammatory response syndrome), Acute hysterical psychosis, Polysubstance abuse Physicians Team ED Provider: Tanya Colon Primary Care Provider: Primary Care Laura Allen Attending Provider: Jenaro Toth Other Providers: Shira Willis Discharge Interventions Interventions: ED Discharge Assessment Last Done: 05/21/18 03:50 Status ED Status: Left Department Discharge Information Discharge Date/Time: 05/21/18 03:51
[2018-05-20] MEDS ORDERED: Ketamine Inj 200 MG/20 ML Vial IV.PUSH ONE (20:26)
[2018-05-20 20:38] LABS: Baso # (Auto) 0.1 th/mm3 (0.0-0.2); Baso % (Auto) 0.7 % (0.0-2.0); Eos % (Auto) 0.2 % (0.0-4.0); Hematocrit 34.7 % (35.0-46.0); Hemoglobin 11.6 gm/dL (11.6-15.3); Lymph # (Auto) 2.3 th/mm3 (1.0-4.8); Lymph % (Auto) 13.9 % (9.0-44.0); Mean Corpuscular HGB Conc 33.5 % (32.0-36.0); Mean Corpuscular Hemoglobin 28.5 pg (27.0-34.0); Mean Corpuscular Volume 84.9 fL (80.0-100.0); Mean Platelet Volume 7.3 fL (7.0-11.0); Mono # (Auto) 1.4 th/mm3 (0.0-0.9); Mono % (Auto) 8.2 % (0.0-8.0); Platelet Count 457 th/mm3 (150-450); Red Blood Count 4.09 mil/mm3 (4.00-5.30); Red Cell Distribution Width 15.4 % (11.6-17.2); White Blood Count 16.9 th/mm3 (4.0-11.0)
[2018-05-20] MEDS ORDERED: Haloperidol Inj 5 MG/ML Ampul IM ONE (20:41)
[2018-05-20] MEDS ORDERED: Ketamine Inj 50 MG/5 ML Syringe IV.PUSH ONE (21:00)
[2018-05-20 21:01] LABS: Alanine Aminotransferase 47 U/L (10-53); Albumin 3.3 g/dL (3.4-5.0); Alkaline Phosphatase 96 U/L (45-117); Anion Gap 11 meq/L (5-15); Aspartate Aminotransferase 66 U/L (15-37); Blood Urea Nitrogen 3 mg/dL (7-18); Calcium 8.4 mg/dL (8.5-10.1); Carbon Dioxide 26.8 meq/L (21.0-32.0); Chloride 95 meq/L (98-107); Creatine Kinase 329 U/L (26-192); Glomerular Filtration Rate 64 mL/min (>89); Glucose,Random 85 mg/dL (74-106); Lipase 101 U/L (73-393); Magnesium 1.8 mg/dL (1.5-2.5); Potassium 3.9 meq/L (3.5-5.1); Sodium 133 meq/L (136-145); Total Protein 7.4 g/dL (6.4-8.2)
[2018-05-20 21:13] LABS: CKMB Percent 1.7 % (0.0-4.0); Creatine Kinase MB 5.5 ng/mL (0.5-3.6)
--- NOTE | 2018-05-20 21:44 | XR ---
EXAM DATE: 05/20/2018 9:39 PM EDT AGE/SEX: 89 years / Female INDICATIONS: Fever. CLINICAL DATA: This is the patient's initial encounter. Patient reports that signs and symptoms have been present for 1 day and indicates a pain score of Nonresponsive. MEDICAL/SURGICAL HISTORY: Non-responsive. Non-responsive. COMPARISON: No prior exams available for comparison. FINDINGS: A single AP view of the chest demonstrates the lungs to be symmetrically aerated without evidence of mass, infiltrate or effusion. The cardiomediastinal contours are unremarkable. Osseous structures a re intact. CONCLUSION: No acute cardiopulmonary disease demonstrated. Electronically signed by: Aashish Gonzales MD 05/20/2018 9:42 PM EDT
[2018-05-20] MEDS ORDERED: Vancomycin Consult Pharmacy OTHER SCH (22:46)
[2018-05-20] MEDS ORDERED: Temazepam 15 MG Capsule PO PRN (22:46)
[2018-05-20] MEDS ORDERED: Acetaminophen 325 MG Tablet PO PRN (22:46)
[2018-05-20] MEDS ORDERED: Bisacodyl 10 MG Supp RECTAL PRN (22:46)
--- NOTE | 2018-05-20 22:46 | P.HPCC ---
History of Present Illness Primary Care Physician: No Primary Care Physician History of Present Illness: 38 year old female presents with a history of being found agitated, erratic on the street prior to arrival. The patient had crack cocaine in her possession according to the police report. The patient freely admits to using heroin and crack earlier today. She admits a history of IV drug use and a prior history of hepatitis C. The patient reports having nausea and vomiting intermittently. She is unsure how many times she has vomited. The patient's review of systems is limited as well as her medical history is limited given her acute agitation and intoxication with heroin and crack cocaine. She had an abscess on her left shoulder that popped out in the emergency department and is draining foul- smelling pus. Inpatient Certification: I certify that the inpatient services were ordered in accordance with Medicare regulations governing the order. This includes certification that hospital inpatient services are reasonable and necessary and in the case of services not specified as inpatient-only under 42 CFR 419.22(n), that they are appropriately provided as inpatient services in accordance to with the 2-midnight benchmark under 43 CFR 412.3(e) Review of Systems unobtainable due to mental condition PMFSH - History History Provided By: Advanced Quality Engineer / EMT - Medical / Surgical Hx Neg / Unobtainable Medical Problems Denied: Unable to Obtain Surgical History: Unable to Obtain - Medical History Medical History: Medical History (Last Updated 05/20/18 @ 20:20 by Tanya Colon MD) Crack cocaine use Hepatitis Heroin use - Tobacco History Smoking Status: Cognitive impairment - Substance Use History Substance History: Active Abuse - Substance Use Type Crack/Cocaine Status: Active Route Used: Intravenously Medications and Allergies Active Medications: Active Medications Acetaminophen (Tylenol) 650 mg PO Q6H PRN PRN Reason: PAIN 1-10 AND/OR FEVER >101F Al Hydroxide/Mg Hydroxide (Milk Of Magnquincy Liq) 30 ml PO Q12H PRN PRN Reason: Mild Constipation Albuterol (Duoneb Neb (Prn)) 1 ampul NEB Q2HR NEB PRN PRN Reason: WHEEZING Bisacodyl (Dulcolax Supp) 10 mg RECTAL DAILY PRN PRN Reason: SEVERE CONSITIPATION Chlorhexidine Gluconate (Chlorhexidine 2% Cloth) 3 pack TOPICAL DAILY@0400 PRN PRN Reason: Extra cloth needed Stop: 05/26/18 03:59 Chlorhexidine Gluconate (Chlorhexidine 2% Cloth) 3 pack TOPICAL DAILY@0400 MAG Stop: 05/26/18 03:59 Famotidine (Pepcid Pf Inj) 20 mg IV.PUSH Q12HR REPLACED BY [facility] Heparin Sodium (Porcine) (Heparin Inj) 5,000 units SQ Q8H MAG Hydromorphone HCl (Dilaudid Pf Inj) 1 mg IV.PUSH Q4H PRN PRN Reason: PAIN SCALE 6 TO 10 Piperacillin/Tazobactam/Dextrose (Zosyn 4.5 Gm Premix) 4.5 gm in 100 mls @ 200 mls/hr IV.SIG Q6H MAG Sodium Chloride (Ns Inj) 1,000 mls @ 184 mls/hr IV.CONT .Q5H27M REPLACED BY [facility] Lactulose (Lactulose Liq) 30 ml PO DAILY PRN PRN Reason: SEVERE CONSITIPATION Metoclopramide HCl (Reglan Inj) 5 mg IV.PUSH Q6HR MAG; Protocol Ondansetron HCl (Zofran Inj) 4 mg IV.PUSH Q6H PRN PRN Reason: NAUSEA OR VOMITING Pharmacy Profile Note ([facility] Last Admin: 05/20/18 23:31 Dose: 1 each Senna/Docusate Sodium (Geeta-Colace) 1 tab PO BID REPLACED BY [facility] Sennosides (Senokot) 17.2 mg PO Q12H PRN PRN Reason: Moderate Constipation Sodium Chloride (Ns Flush) 2 ml IV.FLUSH PRN PRN PRN Reason: FLUSH AFTER USING IV ACCESS Sodium Chloride (Ns Flush) 2 ml IV.FLUSH BID REPLACED BY [facility] Temazepam (Restoril) 15 mg PO HS PRN PRN Reason: INSOMNIA Allergies Allergy/AdvReac Type Severity Reaction Status Date / Time No Known Allergies Allergy Verified 05/20/18 21:35 Home Medications Medication Instructions Recorded Confirmed Type No Known Home Medications 05/21/18 05/21/18 History Results - Labs CBC & Chem 7: 05/20/18 20:15 05/20/18 20:15 Labs: Short CBC 05/20/18 Range/Units 20:15 WBC 16.9 H (4.0-11.0) th/mm3 Hgb 11.6 (11.6-15.3) gm/dL Hct 34.7 L (35.0-46.0) % Plt Count 457 H (150-450) th/mm3 BMP 05/20/18 20:15 Sodium 133 L Potassium 3.9 Chloride 95 L Carbon Dioxide 26.8 BUN 3 L Creatinine 0.78 Calcium 8.4 L Cardiac Enzymes 05/20/18 Range/Units 20:15 Total Creatine Kinase 329 H (26-192) U/L CK-MB (CK-2) 5.5 H (0.5-3.6) ng/mL Troponin I Less than 0.02 L (0.02-0.05) ng/mL Liver Function 05/20/18 Range/Units 20:15 Total Bilirubin 1.1 H (0.2-1.0) mg/dL AST 66 H (15-37) U/L ALT 47 (10-53) U/L Alkaline Phosphatase 96 (45-117) U/L Albumin 3.3 L (3.4-5.0) g/dL - Imaging Impressions Chest X-Ray 05/20/18 20:02 CONCLUSION: No acute cardiopulmonary disease demonstrated. Exam Vital signs: Vital Signs 05/20/18 21:32 Temperature 99.0 F Pulse Rate 101 H Respiratory Rate 19 Blood Pressure 117/81 Pulse Oximetry 100 Intake & Output 05/20/18 05/20/18 05/21/18 06:59 18:59 06:59 Weight 49.895 kg - Constitutional moderate distress - Routine HEENT Exam Head: Present: normocephalic, atraumatic Eye: Present: PERRL ENT: Present: mucous membranes moist - Routine Neck Exam Present: supple, full ROM. Absent: JVD, carotid bruit - Routine Respiratory Exam Absent: accessory muscle use, rhonchi, stridor, wheezes - Routine Cardiovascular Exam Present: RRR, S1, S2, tachycardia - Routine Abdominal Exam Present: soft, normoactive bowel sounds, tenderness - Routine Extremities Exam Absent: cyanosis, clubbing, edema - Routine Skin Exam Present: lesions. Absent: cyanosis Comments: Pus draining abscess on the left shoulder - Routine Neurological Exam Present: alert, altered mental status, moving all extremities Caprini VTE Risk Assessment Caprini VTE Risk Assessment: Moderate/High Risk (score >= 2) Caprini Risk Assessment Model: Point Value = 1 Point Value = 2 Point Value = 3 Point Value = 5 Age 41-60 Minor surgery BMI > 25 kg/m2 Swollen legs Varicose veins or History of unexplained or recurrent spontaneous Oral contraceptives or hormone replacement Sepsis (< 1 month) Serious lung disease, including pneumonia (< 1 month) Abnormal pulmonary function Acute myocardial infarction Congestive heart failure (< 1 month) History of inflammatory bowel disease Medical patient at bed rest Age 61-74 Arthroscopic surgery Major open surgery (> 45 min) Laparoscopic surgery (> 45 min) Malignancy Confined to bed (> 72 hours) Immobilizing plaster cast Central venous access Age >= 75 History of VTE Family history of VTE Factor V Leiden Prothrombin [id number] Lupus anticoagulant Anticardiolipin antibodies Elevated serum homocysteine Heparin-induced thrombocytopenia Other congenital or acquired thrombophilia Stroke (< 1 month) Elective arthroplasty Hip, pelvis, or leg fracture Acute spinal cord injury (< 1 month) Prophylaxis Regimen: Total Risk Factor Score Risk Level Prophylaxis Regimen 0-1 Low Early ambulation 2 Moderate Order ONE of the following: *Sequential Compression Device (SCD) *Heparin 5000 units SQ BID 3-4 Higher Order ONE of the following medications: *Heparin 5000 units SQ TID *Enoxaparin/Lovenox 40 mg SQ daily (WT < 150 kg, CrCl > 30 mL/min) *Enoxaparin/Lovenox 30 mg SQ daily (WT < 150 kg, CrCl > 10-29 mL/min) *Enoxaparin/Lovenox 30 mg SQ BID (WT < 150 kg, CrCl > 30 mL/min) AND/OR *Sequential Compression Device (SCD) 5 or more Highest Order ONE of the following medications: *Heparin 5000 units SQ TID (Preferred with Epidurals) *Enoxaparin/Lovenox 40 mg SQ daily (WT < 150 kg, CrCl > 30 mL/min) *Enoxaparin/Lovenox 30 mg SQ daily (WT < 150 kg, CrCl > 10-29 mL/min) *Enoxaparin/Lovenox 30 mg SQ BID (WT < 150 kg, CrCl > 30 mL/min) AND *Sequential Compression Device (SCD) Assessment and Plan - Assessment and Plan Plan: Altered mental status -Intoxication cocaine and crack most likely -Benzos as needed for agitation -Neuro checks per unit protocol -Supportive care -Monitor for withdrawal Sepsis -IVDU -Skin abscess most likely from skin popping -Broad-spectrum antibiotics -Follow-up blood cultures -Infectious disease consultation Transaminitis -History of hepatitis C -Monitor trend -Supportive care Hyponatremia -Dehydration -Aggressive IV fluid resuscitation DVT GI prophylaxis -Teds SCDs -Subcu heparin -Pepcid Critical Care: The total critical care time was 35 minutes. Time to perform other separately billable procedures was not included in the critical care time.
[2018-05-20 23:40] LABS: INR 1.1 Ratio; Prothrombin Time 11.6 sec (9.8-11.6)
[2018-05-21] MEDS: Heparin - SQ 10,000 UNITS/ML Vial SQ SCH ×4 (00:04→22:09)
[2018-05-21] MEDS: Sod Chloride 0.9% Inj 1,000 ML IV.CONT SCH ×4 (00:05→22:08)
[2018-05-21] MEDS: Piperacil/Tazo 4.5 GM Premix 4.5 GM/100 ML BAG IV.SIG SCH ×5 (00:06→22:08)
[2018-05-21 03:42] LABS: Bilirubin,Urine Negative (Negative); Clarity,Urine Clear (Clear); Color,Urine Yellow (Yellw/Straw); Glucose,Urine (UA) Negative (Negative); Leukocyte Esterase,Urine Negative (Negative); Mucus,Urine Few /lpf (Occasional); Nitrite,Urine Negative (Negative); Specific Gravity,Urine 1.005 (1.002-1.035)
[2018-05-21] MEDS ORDERED: Chlorhexidine Gluconate 2% 1 Pack (2 Cloths) TOPICAL PRN (04:00)
[2018-05-21] MEDS: Chlorhexidine Gluconate 2% 1 Pack (2 Cloths) TOPICAL SCH (04:34)
[2018-05-21 06:04] LABS: Baso # (Auto) 0.1 th/mm3 (0.0-0.2); Baso % (Auto) 0.9 % (0.0-2.0); Eos # (Auto) 0.1 th/mm3 (0.0-0.4); Hematocrit 33.9 % (35.0-46.0); Hemoglobin 11.4 gm/dL (11.6-15.3); Lymph # (Auto) 2.4 th/mm3 (1.0-4.8); Lymph % (Auto) 20.7 % (9.0-44.0); Mean Corpuscular HGB Conc 33.6 % (32.0-36.0); Mean Corpuscular Hemoglobin 28.3 pg (27.0-34.0); Mean Corpuscular Volume 84.1 fL (80.0-100.0); Mean Platelet Volume 7.8 fL (7.0-11.0); Mono # (Auto) 0.8 th/mm3 (0.0-0.9); Mono % (Auto) 7.1 % (0.0-8.0); Neut # (Auto) 8.1 th/mm3 (1.8-7.7); Neut % (Auto) 70.3 % (16.0-70.0); Platelet Count 325 th/mm3 (150-450); Red Blood Count 4.02 mil/mm3 (4.00-5.30); Red Cell Distribution Width 15.7 % (11.6-17.2); White Blood Count 11.6 th/mm3 (4.0-11.0)
[2018-05-21 06:14] LABS: INR 1.1 Ratio; Prothrombin Time 10.7 sec (9.8-11.6)
[2018-05-21 06:47] LABS: Alanine Aminotransferase 34 U/L (10-53); Albumin 2.4 g/dL (3.4-5.0); Alkaline Phosphatase 69 U/L (45-117); Anion Gap 10 meq/L (5-15); Aspartate Aminotransferase 39 U/L (15-37); Blood Urea Nitrogen 3 mg/dL (7-18); Calcium 7.1 mg/dL (8.5-10.1); Chloride 104 meq/L (98-107); Glomerular Filtration Rate Greater Than 89 mL/min (>89); Glucose,Random 81 mg/dL (74-106); Sodium 139 meq/L (136-145); Total Protein 5.5 g/dL (6.4-8.2)
[2018-05-21] MEDS ORDERED: Famotidine PF Inj 20 MG/2 ML Vial IV.PUSH SCH (09:00)
--- NOTE | 2018-05-21 09:27 | P.CONID ---
History of Present Illness Service: Infectious disease Consult date: 05/21/18 Requesting Physician: Jnearo Toth Reason for Consult: Evaluate patient with sepsis Primary Care Provider: No Primary Care Physician History of Present Illness: Patient seen and examined. Records reviewed. Patient still very lethargic and unable to get any history. The last time she received any medication was between 8 and 9 PM last night in the emergency room, and she received Haldol, Benadryl, Ativan, and Compazine. Patient is a 38-year-old female, with a reported history of IV drug use, was found very agitated and with erratic behavior on the street. She was brought in by the police, and she apparently had crack cocaine in her possession. In the ED she apparently admits to history of IV drug use and prior history of hepatitis C. There is also mention that she was having some nausea and vomiting intermittently. She was also complaining of pain on her left shoulder, and she was found to have what looks like an abscess, and she underwent I&D in the emergency room. On presentation to the ED, we did not have her identification. She has been afebrile. Her WBC is elevated. Chest x-ray is normal. Lactic acid is normal. Her LFTs mildly elevated. Urinalysis is okay. Patient has received vancomycin and Zosyn. Her hemodynamics are okay. Infectious disease consultation has been requested to evaluate the patient with IV drug use and sepsis. Review of Systems unobtainable due to mental status (patient very lethargic) PMFSH - History History Provided By: Patient, Meter Reading Clerk / EMT - Medical / Surgical Hx Neg / Unobtainable Medical Problems Denied: Unable to Obtain - Medical History Medical History: Medical History (Last Reviewed 05/21/18 @ 09:26 by Shira Willis MD) Crack cocaine use Hepatitis Heroin use - Tobacco History Tobacco Use In Past 30 Days: Yes Smoking Status: Cognitive impairment Tobacco Type: Cigarettes - Alcohol History How Often Do You Have a Drink Containing Alcohol: Unable to Obtain - Substance Use History Substance History: Active Abuse - Substance Use Type Crack/Cocaine Type: heroin, crack cocaine Status: Active Route Used: Intravenously - Immunization History Tetanus Immunization: <5 Years Medications and Allergies Active Medications: Active Medications Acetaminophen (Tylenol) 650 mg PO Q6H PRN PRN Reason: PAIN 1-10 AND/OR FEVER >101F Al Hydroxide/Mg Hydroxide (Milk Of Magnesia Liq) 30 ml PO Q12H PRN PRN Reason: Mild Constipation Albuterol (Duoneb Neb (Prn)) 1 ampul NEB Q2HR NEB PRN PRN Reason: WHEEZING Bisacodyl (Dulcolax Supp) 10 mg RECTAL DAILY PRN PRN Reason: SEVERE CONSITIPATION Chlorhexidine Gluconate (Chlorhexidine 2% Cloth) 3 pack TOPICAL DAILY@0400 PRN PRN Reason: Extra cloth needed Stop: 05/26/18 03:59 Chlorhexidine Gluconate (Chlorhexidine 2% Cloth) 3 pack TOPICAL DAILY@0400 MAG Stop: 05/26/18 03:59 Last Admin: 05/21/18 04:34 Dose: 3 pack Famotidine (Pepcid Pf Inj) 20 mg IV.PUSH Q12HR COUNT INCLUDES THE [facility] Heparin Sodium (Porcine) (Heparin Inj) 5,000 units SQ Q8H COUNT INCLUDES THE [facility] Last Admin: 05/21/18 06:26 Dose: 5,000 units Hydromorphone HCl (Dilaudid Pf Inj) 1 mg IV.PUSH Q4H PRN PRN Reason: PAIN SCALE 6 TO 10 Piperacillin/Tazobactam/Dextrose (Zosyn 4.5 Gm Premix) 4.5 gm in 100 mls @ 200 mls/hr IV.SIG Q6H COUNT INCLUDES THE [facility] Last Admin: 05/21/18 04:34 Dose: 200 mls/hr Sodium Chloride (Ns Inj) 1,000 mls @ 184 mls/hr IV.CONT .Q5H27M COUNT INCLUDES THE [facility] Last Admin: 05/21/18 00:05 Dose: 184 mls/hr Lactulose (Lactulose Liq) 30 ml PO DAILY PRN PRN Reason: SEVERE CONSITIPATION Metoclopramide HCl (Reglan Inj) 5 mg IV.PUSH Q6HR COUNT INCLUDES THE [facility]; Protocol Last Admin: 05/21/18 05:49 Dose: 5 mg Ondansetron HCl (Zofran Inj) 4 mg IV.PUSH Q6H PRN PRN Reason: NAUSEA OR VOMITING Pharmacy Profile Note (Vancomycin Consult Pharmacy) 1 each OTHER [facility] COUNT INCLUDES THE [facility] Last Admin: 05/20/18 23:31 Dose: 1 each Senna/Docusate Sodium (Geeta-Colace) 1 tab PO BID COUNT INCLUDES THE [facility] Sennosides (Senokot) 17.2 mg PO Q12H PRN PRN Reason: Moderate Constipation Sodium Chloride (Ns Flush) 2 ml IV.FLUSH PRN PRN PRN Reason: FLUSH AFTER USING IV ACCESS Sodium Chloride (Ns Flush) 2 ml IV.FLUSH BID COUNT INCLUDES THE [facility] Temazepam (Restoril) 15 mg PO HS PRN PRN Reason: INSOMNIA Allergies Allergy/AdvReac Type Severity Reaction Status Date / Time No Known Allergies Allergy Verified 05/20/18 21:35 Home Medications Medication Instructions Recorded Confirmed Type No Known Home Medications 05/21/18 05/21/18 History Exam Vital signs: Vital Signs 05/20/18 21:32 05/20/18 21:35 05/21/18 00:00 Temperature 99.0 F Pulse Rate 101 H 66 Respiratory Rate 19 16 Blood Pressure 117/81 96/61 L Pulse Oximetry 100 98 05/21/18 01:01 05/21/18 02:00 05/21/18 04:00 Temperature 97.0 F L Pulse Rate 76 74 75 Respiratory Rate 16 16 13 Blood Pressure 121/76 110/70 109/70 Pulse Oximetry 98 100 05/21/18 05:00 05/21/18 06:00 05/21/18 07:00 Temperature Pulse Rate 75 71 109 H Respiratory Rate 20 22 Blood Pressure 110/62 97/54 L Pulse Oximetry 100 100 Intake & Output 05/20/18 05/21/18 05/21/18 18:59 06:59 18:59 Intake Total 100 / 100 Output Total 900 / 900 0 / 0 Balance -800 / -800 0 / 0 Weight 41.1 kg Intake: IV 100 / 100 Zosyn 4.5 GM Premix 4.5 gm In 100 / 100 100 ml @ 200 mls/hr IV.SIG Q6H COUNT INCLUDES THE [facility] Rx#:[id number] Output: Urine Amount (Catheter) 900 / 900 0 / 0 Indwelling Urethral Catheter 900 / 900 0 / 0 Other: # Bowel Movements 0 Narrative: Physical Examination GENERAL: Patient is a thin, well-developed female, very lethargic, not in respiratory distress. SKIN: Warm and dry. Has tattoos in trunk and extremities. EYES: [place] conjunctivae, no petechia or hemorrhage. YOMI. No scleral icterus. No injection or drainage. EARS, NOSE AND THROAT: Nose without bleeding or purulent nasal discharge. No sinus tenderness. Mucous membranes moist. Unable to examine the oropharynx and she is lethargic and not able to participate NECK: Trachea midline. Supple and not tender, no meningeal signs. No nuchal rigidity. CARDIOVASCULAR: Regular rate and rhythm. No murmurs, rubs or gallops heard RESPIRATORY: Clear to auscultation. Breath sounds equal bilaterally. No rales , wheezing or rhonchi ABDOMEN: Soft, non-tender, nondistended. Bowel sounds present and normoactive. No guarding. No rebound. No organomegaly. EXTREMITIES: No clubbing, cyanosis, or edema in the lower extremities. No joint effusion. Has an incision on her L shoulder, with some drainage and has surrounding erythema and swelling. Good ROM L shoulder on passive movement. NEUROLOGICAL: Lethargic. No facial asymmetry. No Babinski, no ankle clonus. PSYCHIATRIC: Unable to assess : Gorman catheter in place, urine looks clear. LINE: No evidence of infection Results - Labs CBC & Chem 7: 05/21/18 05:43 05/21/18 05:43 Labs: Laboratory Results - last 24 hr 05/20/18 05/20/18 05/20/18 20:15 20:15 20:15 WBC 16.9 H RBC 4.09 Hgb 11.6 Hct 34.7 L MCV 84.9 MCH 28.5 MCHC 33.5 RDW 15.4 Plt Count 457 H MPV 7.3 Neut % (Auto) 77.0 H Lymph % (Auto) 13.9 [place] % (Auto) 8.2 H Eos % (Auto) 0.2 Baso % (Auto) 0.7 Neut # (Auto) 13.0 H Lymph # (Auto) 2.3 [place] # (Auto) 1.4 H Eos # (Auto) 0.0 Baso # (Auto) 0.1 WBC Differential . Differential Comment Auto diff final PT INR APTT Sodium 133 L Potassium 3.9 Chloride 95 L Carbon Dioxide 26.8 Anion Gap 11 BUN 3 L Creatinine 0.78 Estimated GFR 64 L Random Glucose 85 Lactic Acid 1.9 Calcium 8.4 L Prot Corrected Calcium Phosphorus Magnesium 1.8 Total Bilirubin 1.1 H AST 66 H ALT 47 Alkaline Phosphatase 96 Total Creatine Kinase 329 H CK-MB (CK-2) 5.5 H CK-MB (CK-2) % 1.7 Troponin I Less than 0.02 L C-Reactive Protein Total Protein 7.4 Albumin 3.3 L Lipase 101 Urine Color Urine Clarity Urine pH Ur Specific [place] Urine Protein Urine Glucose (UA) Urine Ketones Urine Occult Blood Urine Nitrate Urine Bilirubin Urine Urobilinogen Ur Leukocyte Esterase Urine RBC Urine WBC Urine Mucus Micro UA Comment Urine Culture Comments 05/20/18 05/20/18 05/21/18 20:15 23:00 03:25 WBC RBC Hgb Hct MCV MCH MCHC RDW Plt Count MPV Neut % (Auto) Lymph % (Auto) [place] % (Auto) Eos % (Auto) Baso % (Auto) Neut # (Auto) Lymph # (Auto) [place] # (Auto) Eos # (Auto) Baso # (Auto) WBC Differential Differential Comment PT 11.6 INR 1.1 APTT Sodium Potassium Chloride Carbon Dioxide Anion Gap BUN Creatinine Estimated GFR Random Glucose Lactic Acid Calcium Prot Corrected Calcium Phosphorus Magnesium Total Bilirubin AST ALT Alkaline Phosphatase Total Creatine Kinase CK-MB (CK-2) CK-MB (CK-2) % Troponin I C-Reactive Protein 6.14 H Total Protein Albumin Lipase Urine Color Yellow Urine Clarity Clear Urine pH 6.0 Ur Specific [place] 1.005 Urine Protein Negative Urine Glucose (UA) Negative Urine Ketones Negative Urine Occult Blood Negative Urine Nitrate Negative Urine Bilirubin Negative Urine Urobilinogen 2.0 H Ur Leukocyte Esterase Negative Urine RBC 1 Urine WBC 3 Urine Mucus Few H Micro UA Comment Cath-culture not ind Urine Culture Comments Cath-cult not ind 05/21/18 05/21/18 05/21/18 05:43 05:43 05:43 WBC 11.6 H RBC 4.02 Hgb 11.4 L Hct 33.9 L MCV 84.1 MCH 28.3 MCHC 33.6 RDW 15.7 Plt Count 325 MPV 7.8 Neut % (Auto) 70.3 H Lymph % (Auto) 20.7 [place] % (Auto) 7.1 Eos % (Auto) 1.0 Baso % (Auto) 0.9 Neut # (Auto) 8.1 H Lymph # (Auto) 2.4 [place] # (Auto) 0.8 Eos # (Auto) 0.1 Baso # (Auto) 0.1 WBC Differential . Differential Comment Auto diff final PT 10.7 INR 1.1 APTT 32.0 H Sodium 139 Potassium 3.0 L D Chloride 104 D Carbon Dioxide 25.0 Anion Gap 10 BUN 3 L Creatinine 0.53 Estimated GFR Greater than 89 Random Glucose 81 Lactic Acid Calcium 7.1 L* D Prot Corrected Calcium 7.9 L Phosphorus 3.0 Magnesium 2.0 Total Bilirubin 1.0 AST 39 H ALT 34 Alkaline Phosphatase 69 Total Creatine Kinase CK-MB (CK-2) CK-MB (CK-2) % Troponin I C-Reactive Protein Total Protein 5.5 L D Albumin 2.4 L D Lipase Urine Color Urine Clarity Urine pH Ur Specific [place] Urine Protein Urine Glucose (UA) Urine Ketones Urine Occult Blood Urine Nitrate Urine Bilirubin Urine Urobilinogen Ur Leukocyte Esterase Urine RBC Urine WBC Urine Mucus Micro UA Comment Urine Culture Comments 05/21/18 05:43 WBC RBC Hgb Hct MCV MCH MCHC RDW Plt Count MPV Neut % (Auto) Lymph % (Auto) [place] % (Auto) Eos % (Auto) Baso % (Auto) Neut # (Auto) Lymph # (Auto) [place] # (Auto) Eos # (Auto) Baso # (Auto) WBC Differential Differential Comment PT INR APTT Sodium Potassium Chloride Carbon Dioxide Anion Gap BUN Creatinine Estimated GFR Random Glucose Lactic Acid 1.0 Calcium Prot Corrected Calcium Phosphorus Magnesium Total Bilirubin AST ALT Alkaline Phosphatase Total Creatine Kinase CK-MB (CK-2) CK-MB (CK-2) % Troponin I C-Reactive Protein Total Protein Albumin Lipase Urine Color Urine Clarity Urine pH Ur Specific [place] Urine Protein Urine Glucose (UA) Urine Ketones Urine Occult Blood Urine Nitrate Urine Bilirubin Urine Urobilinogen Ur Leukocyte Esterase Urine RBC Urine WBC Urine Mucus Micro UA Comment Urine Culture Comments - Imaging Impressions Chest X-Ray 05/20/18 20:02 CONCLUSION: No acute cardiopulmonary disease demonstrated. Assessment and Plan - Plan Impression Encephalopathy, likely metabolic, due to her active IVDU Abscess L shoulder, clinically does not seem to have involvement of the joint Hx IVDU Hx Hepatitis C Recommendation Get UDS Continue empiric Abx: Vancomycin and Zosyn Xray L shoulder, may need more imaging studies Follow C/S Will adjust Abx and make further recommendation on RX once work-up completed Monitor progress I will along with you Thank you for this consultation D/W GABBY
[2018-05-21] MEDS: Senna/Docusate Sodium 8.6/50 MG Tablet PO SCH ×2 (09:47→21:25)
--- NOTE | 2018-05-21 10:47 | P.PNCC ---
Subjective Subjective Remarks/Hospital Course: 38-year-old female with history of end-stage renal disease on dialysis, hypertension, recent fall and right hip injury, currently getting rehab, presents because patient's blood pressure has been very elevated in the last few days, she has been having headaches, shortness of breath and dyspnea on exertion, and also complains of a left lower quadrant abdominal discomfort. Her pain is rated at a 9 out of 10. She took her blood pressure medications today but her blood pressures at the facility was noted to be very high, in the 200/100 range area. She denies fever, neck stiffness, visual changes, difficulty walking or talking, focal neurological deficits, or other symptoms. SUBJECTIVE: 05/21: Currently hypotensive. Arousable and follow simple commands. Multiple tattoos noted. Order for x-ray of the shoulder today. Receiving albumin boluses for hypotension. Objective Vital Signs / I&O: Vital Signs 05/20/18 21:32 05/20/18 21:35 05/21/18 00:00 Temperature 99.0 F Pulse Rate 101 H 66 Respiratory Rate 19 16 Blood Pressure 117/81 96/61 L Pulse Oximetry 100 98 05/21/18 01:01 05/21/18 02:00 05/21/18 04:00 Temperature 97.0 F L Pulse Rate 76 74 75 Respiratory Rate 16 16 13 Blood Pressure 121/76 110/70 109/70 Pulse Oximetry 98 100 05/21/18 05:00 05/21/18 06:00 05/21/18 07:00 Temperature Pulse Rate 75 71 109 H Respiratory Rate 20 22 Blood Pressure 110/62 97/54 L Pulse Oximetry 100 100 Intake & Output 05/20/18 05/21/18 05/21/18 18:59 06:59 18:59 Intake Total 1200 / 1200 Output Total 900 / 900 0 / 0 Balance 300 / 300 0 / 0 Weight 41.1 kg Intake: IV 1200 / 1200 NS Inj 1,000 ML @ 184 mls/hr IV 1000 / 1000 .CONT .Q5H27M MAG Rx#:[id number] Zosyn 4.5 GM Premix 4.5 gm In 200 / 200 100 ml @ 200 mls/hr IV.SIG Q6H MAG Rx#:[id number] Output: Urine Amount (Catheter) 900 / 900 0 / 0 Indwelling Urethral Catheter 900 / 900 0 / 0 Other: # Bowel Movements 0 Result Diagrams: 05/21/18 05:43 05/21/18 05:43 Other Results: Microbiology 05/20/18 20:15 Abscess - Arm Gram Stain - Final Imaging: Chest X-Ray 05/20/18 20:02 CONCLUSION: No acute cardiopulmonary disease demonstrated. Objective Remarks: GENERAL: female currently currently resting in bed in no acute distress SKIN: Warm and dry. Multiple tattoos. See muscular skeletal HEAD: Atraumatic. Normocephalic. EYES: Pupils equal and round. No scleral icterus. No injection or drainage. ENT: No nasal bleeding or discharge. Mucous membranes pink and moist. NECK: Trachea midline. No JVD. CARDIOVASCULAR: Regular rate and rhythm. S1, S2 predose for without murmur RESPIRATORY: No accessory muscle use. Clear to auscultation. Breath sounds equal bilaterally. GASTROINTESTINAL: Abdomen soft, non-tender, nondistended. Hepatic and splenic margins not palpable. MUSCULOSKELETAL: Extremities without clubbing, cyanosis, or edema. Pus draining from lateral aspect of left shoulder. NEUROLOGICAL: Arousable but falls asleep quickly. No obvious cranial nerve deficits. Motor grossly within normal limits. Five out of 5 muscle strength in the arms and legs. Normal speech. Assessment and Plan - Assessment and Plan Plan: Neuro/Psych: Acute delirium likely secondary to polysubstance abuse. Urine drug screen pending Acetaminophen 650 p.o. every 6 hours as needed fever CIWA protocol initiated with lorazepam as needed Ketamine and lorazepam overnight CV: History of essential hypertension Receiving crystalloid and colloid boluses. Not requiring antihypertensives and/or vasopressors. Resp: Nasal cannula to maintain saturations greater than equal to 92% Incentive spirometry while awake Albuterol/ipratropium aerosols every 4 hours with albuterol aerosols every 2 hours as needed for dyspnea Chest x-ray admission revealed no acute cardiopulmonary findings GI: Acute hepatitis C Hypoalbuminemia Elevated AST Advance diet as tolerated Famotidine for GI prophylaxis Docusate sodium/senna 1 tablet twice daily for bowel regimen Receiving albumin boluses as above. Follow-up CMP in a.m. 05/22 : Remove Gorman catheter Endo: SSI before meals at bedtime to maintain euglycemia/aspart low Check TSH Renal: Creatinine currently within normal limits Monitor urine output Accurate I's and O's Heme: Leukocytosis Normocytic anemia Elevated PTT Monitor CBC daily. Follow trends. No indication for transfusion of blood products at this time. ID: Blood cultures 2, Gram stain 05/20 pending Currently in vancomycin and piperacillin/tazobactam day #2 Infectious disease consultation appreciated. Left x-ray shoulders pending. FEN: Hypopotassemia Hypocalcemia A total of 60 mEq potassium chloride 1 now. Recheck in a.m. MSK: Elevated CRP 6.14 Access -Utilize peripheral IV. Central line if indicated Prophylaxis -GI -famotidine -DVT -SCD/heparin subcu Level 3 follow-up
[2018-05-21] MEDS ORDERED: LORazepam 1 MG Tablet PO PRN (10:54)
[2018-05-21] MEDS ORDERED: Haloperidol Inj 5 MG/ML Ampul IV.PUSH PRN (10:54)
[2018-05-21] MEDS ORDERED: Dextrose 50% in Water 50 ML Vial IV.PUSH PRN (10:58)
[2018-05-21] MEDS ORDERED: Potassium Chlor 40 mEq Premix 40 MEQ/100 ML PIGGYBACK IV.SIG PRN ×2 (10:59)
[2018-05-21] MEDS ORDERED: Potassium Phosphate 500 MG Soluble Tablet PO PRN ×2 (10:59)
[2018-05-21] MEDS ORDERED: Potassium Phosphate Inj 30 MMOL in Sodium Chlor 0.9% Inj 250 ML IV.SIG PRN (10:59)
[2018-05-21] MEDS ORDERED: Sodium Phosphate Inj 30 MMOL in Sodium Chlor 0.9% Inj 250 ML IV.SIG PRN (10:59)
[2018-05-21] MEDS ORDERED: Magnesium Sulfate Inj 2 GM in Sodium Chlor 0.9% Inj 96 ML IV.SIG PRN (10:59)
[2018-05-21] MEDS ORDERED: Potassium Chlor 20 mEq Premix 20 MEQ/100 ML PIGGYBACK IV.SIG PRN (10:59)
[2018-05-21] MEDS ORDERED: Magnesium Sulfate Inj 4 GM in Sodium Chlor 0.9% Inj 92 ML IV.SIG PRN (10:59)
[2018-05-21] MEDS ORDERED: Potassium Chloride 25 MEQ Effervescent Tablet PO PRN (10:59)
[2018-05-21] MEDS ORDERED: Magnesium Oxide 400 MG Tablet PO PRN (10:59)
--- NOTE | 2018-05-21 11:24 | XR ---
EXAM DATE: 05/21/2018 11:10 AM EDT AGE/SEX: 89 years / Female INDICATIONS: Left shoulder pain. CLINICAL DATA: This is the patient's initial encounter. Patient reports that signs and symptoms have been present for 1 day and indicates a pain score of Nonresponsive. MEDICAL/SURGICAL HISTORY: Non-responsive. Non-responsive. COMPARISON: No prior exams available for comparison. FINDINGS: A limited two-view examination of left shoulder was obtained and demonstrates no acute fracture or ma lalignment. The acromioclavicular and coracoclavicular distances are within normal limits. The soft t issues are unremarkable. CONCLUSION: Negative 2 view study. Electronically signed by: Shane Miller MD 05/21/2018 11:23 AM EDT
[2018-05-21] MEDS: Insulin NovoLOG Aspart Correctional Sugar Inj SQ SCH ×3 (12:10→21:30)
[2018-05-21] MEDS: Multivitamin Inj 10 ML, Thiamine Inj 100 MG, Folic Acid Inj 1 MG in Sodium Chlor 0.9% I... IV.SIG SCH (12:46)
[2018-05-21] MEDS: Vancomycin Inj 600 MG in Sodium Chlor 0.9% Inj 250 ML IV.SIG SCH (13:55)
[2018-05-21] MEDS: Albumin Human 25% Inj 100 ML IV.SIG SCH ×2 (13:55→23:39)
[2018-05-21] MEDS: Potassium Chlor 20 mEq Premix 20 MEQ/100 ML PIGGYBACK IV.SIG PRN ×3 (13:57→21:25)
[2018-05-21 17:01] LABS: Amphetamine Screen,Urine Neg (Neg); Barbiturate Screen,Urine Neg (Neg); Cannabinoid Screen,Urine Neg (Neg); Cocaine Screen,Urine Pos (Neg)
[2018-05-21 17:02] LABS: Opiate Screen,Urine Pos (Neg)
[2018-05-21] MEDS: Famotidine 20 MG Tablet PO SCH (21:25)
[2018-05-22] MEDS: Vancomycin Inj 600 MG in Sodium Chlor 0.9% Inj 250 ML IV.SIG SCH (00:42)
[2018-05-22] MEDS: Piperacil/Tazo 4.5 GM Premix 4.5 GM/100 ML BAG IV.SIG SCH ×2 (04:33→12:32)
[2018-05-22] MEDS: Chlorhexidine Gluconate 2% 1 Pack (2 Cloths) TOPICAL SCH (04:34)
[2018-05-22] MEDS: Sod Chloride 0.9% Inj 1,000 ML IV.CONT SCH (06:01)
[2018-05-22] MEDS: Heparin - SQ 10,000 UNITS/ML Vial SQ SCH ×2 (06:01→22:13)
[2018-05-22] MEDS: HYDROmorphone PF Inj 2 MG/ML Vial IV.PUSH PRN ×4 (08:19→22:12)
[2018-05-22] MEDS: Famotidine 20 MG Tablet PO SCH (08:20)
[2018-05-22] MEDS: Senna/Docusate Sodium 8.6/50 MG Tablet PO SCH (08:20)
[2018-05-22 10:45] LABS: Baso # (Auto) 0.1 th/mm3 (0.0-0.2); Eos % (Auto) 0.6 % (0.0-4.0); Hematocrit 31.8 % (35.0-46.0); Hemoglobin 11.1 gm/dL (11.6-15.3); Lymph # (Auto) 1.4 th/mm3 (1.0-4.8); Lymph % (Auto) 21.6 % (9.0-44.0); Mean Corpuscular HGB Conc 34.9 % (32.0-36.0); Mean Corpuscular Hemoglobin 29.1 pg (27.0-34.0); Mean Corpuscular Volume 83.2 fL (80.0-100.0); Mean Platelet Volume 7.3 fL (7.0-11.0); Mono # (Auto) 0.4 th/mm3 (0.0-0.9); Mono % (Auto) 6.6 % (0.0-8.0); Neut # (Auto) 4.7 th/mm3 (1.8-7.7); Neut % (Auto) 70.2 % (16.0-70.0); Platelet Count 390 th/mm3 (150-450); Red Blood Count 3.82 mil/mm3 (4.00-5.30); Red Cell Distribution Width 15.7 % (11.6-17.2); White Blood Count 6.6 th/mm3 (4.0-11.0)
[2018-05-22 10:48] LABS: INR 1.1 Ratio; Prothrombin Time 10.8 sec (9.8-11.6)
[2018-05-22] MEDS: Insulin NovoLOG Aspart Correctional Sugar Inj SQ SCH ×2 (10:53→21:36)
[2018-05-22 11:24] LABS: Alanine Aminotransferase 27 U/L (10-53); Alkaline Phosphatase 60 U/L (45-117); Anion Gap 8 meq/L (5-15); Aspartate Aminotransferase 32 U/L (15-37); Blood Urea Nitrogen 3 mg/dL (7-18); Calcium 7.5 mg/dL (8.5-10.1); Carbon Dioxide 26.9 meq/L (21.0-32.0); Chloride 110 meq/L (98-107); Glomerular Filtration Rate 88 mL/min (>89); Glucose,Random 115 mg/dL (74-106); Phosphorus 1.7 mg/dL (2.5-4.9); Sodium 145 meq/L (136-145); Thyroid Stimulating Hormone 0.511 uIU/mL (0.358-3.740); Total Protein 5.8 g/dL (6.4-8.2)
--- NOTE | 2018-05-22 11:43 | P.PNCC ---
Subjective Subjective Remarks/Hospital Course: 38 year old female presents with a history of being found agitated, erratic on the street prior to arrival. The patient had crack cocaine in her possession according to the police report. The patient freely admits to using heroin and crack earlier today. She admits a history of IV drug use and a prior history of hepatitis C. The patient reports having nausea and vomiting intermittently. She is unsure how many times she has vomited. The patient's review of systems is limited as well as her medical history is limited given her acute agitation and intoxication with heroin and crack cocaine. She had an abscess on her left shoulder that popped out in the emergency department and is draining foul- smelling pus. 05/21: Currently hypotensive. Arousable and follow simple commands. Multiple tattoos noted. Order for x-ray of the shoulder today. Receiving albumin boluses for hypotension. SUBJECTIVE: 05/22: More arousable inside. Today. Afebrile. Blood pressure stabilized. Tolerating diet. Objective Vital Signs / I&O: Vital Signs 05/21/18 12:00 05/21/18 14:48 05/21/18 16:00 Temperature Pulse Rate 66 73 78 Respiratory Rate 24 22 19 Blood Pressure 99/58 L 101/65 Pulse Oximetry 100 100 100 05/21/18 20:00 05/21/18 20:18 05/21/18 23:35 Temperature 98.3 F Pulse Rate 77 83 Respiratory Rate 26 H 22 Blood Pressure 95/55 L Pulse Oximetry 98 99 98 05/22/18 00:00 05/22/18 04:00 05/22/18 07:20 Temperature 98.5 F Pulse Rate 77 75 93 H Respiratory Rate 19 23 22 Blood Pressure 104/69 107/67 Pulse Oximetry 99 97 95 05/22/18 08:00 Temperature Pulse Rate 90 Respiratory Rate Blood Pressure Pulse Oximetry 95 Intake & Output 05/21/18 05/22/18 05/22/18 18:59 06:59 18:59 Intake Total 2450 / 2450 1700 / 1700 Output Total 550 / 550 1200 / 1200 Balance 1900 / 1900 500 / 500 Weight 48.7 kg Intake: IV 2400 / 2400 1550 / 1550 NS Inj 1,000 ML @ 100 mls/hr IV 1999 / 1999 1000 / 1000 .CONT .Q10H MAG Rx#:[id number] Flexbumin 25% Inj 100 ML @ 60 200 / 200 mls/hr IV.SIG Q12H MAG Rx#: [id number] Zosyn 4.5 GM Premix 4.5 gm In 200 / 200 100 / 100 100 ml @ 200 mls/hr IV.SIG Q6H MAG Rx#:[id number] KCl 20 mEq Premix Inj 20 meq In 200 / 200 100 ml @ 50 mls/hr IV.SIG Q2H PRN Rx#:[id number] Vancomycin Inj 600 MG In NS Inj 250 / 250 250 ML @ 250 mls/hr IV.SIG Q12H MAG Rx#:[id number] Oral 50 / 50 150 / 150 Output: Urine Amount (Catheter) 550 / 550 1200 / 1200 Indwelling Urethral Catheter 550 / 550 1200 / 1200 Other: Date of Last Bowel Movement 05/22/18 # Bowel Movements 0 0 Result Diagrams: 05/22/18 10:23 05/21/18 05:43 Other Results: Microbiology 05/20/18 22:55 Blood - Peripheral Aerobic Blood Culture - Preliminary No growth in 2 days 05/20/18 22:55 Blood - Peripheral Anaerobic Blood Culture - Preliminary Staphylococcus coag negative 05/20/18 22:50 Blood - Peripheral Aerobic Blood Culture - Preliminary No growth in 2 days 05/20/18 22:50 Blood - Peripheral Anaerobic Blood Culture - Preliminary No growth in 2 days 05/20/18 20:15 Abscess - Arm Gram Stain - Final 05/20/18 20:15 Abscess - Arm Wound Culture - Final Group B beta Strep Imaging: Chest X-Ray 05/20/18 20:02 CONCLUSION: No acute cardiopulmonary disease demonstrated. Shoulder X-Ray 05/21/18 00:00 CONCLUSION: Negative 2 view study. Objective Remarks: GENERAL: female currently currently resting in bed in no acute distress SKIN: Warm and dry. Multiple tattoos. See muscular skeletal HEAD: Atraumatic. Normocephalic. EYES: Pupils equal and round. No scleral icterus. No injection or drainage. ENT: No nasal bleeding or discharge. Mucous membranes pink and moist. NECK: Trachea midline. No JVD. CARDIOVASCULAR: Regular rate and rhythm. S1, S2 predose for without murmur RESPIRATORY: No accessory muscle use. Clear to auscultation. Breath sounds equal bilaterally. GASTROINTESTINAL: Abdomen soft, non-tender, nondistended. Hepatic and splenic margins not palpable. MUSCULOSKELETAL: Extremities without clubbing, cyanosis, or edema. Pus draining from lateral aspect of left shoulder. NEUROLOGICAL: Arousable and oriented to person and place. No obvious cranial nerve deficits. Motor grossly within normal limits. Five out of 5 muscle strength in the arms and legs. Normal speech. Assessment and Plan - Assessment and Plan Plan: Neuro/Psych: Acute delirium likely secondary to polysubstance abuse. Urine drug screen positive for cocaine, opiates and benzodiazepines Acetaminophen 650 p.o. every 6 hours as needed fever Hydrocodone/acetominophen 5/325 1 tab q4H prn/Hydromorphone 1 mg every 4 as needed pain CIWA protocol initiated with lorazepam as needed Ketamine and lorazepam overnight CV: History of essential hypertension Receiving crystalloid and colloid boluses. Not requiring antihypertensives and/or vasopressors. Resp: Nasal cannula to maintain saturations greater than equal to 92% Incentive spirometry while awake Albuterol/ipratropium aerosols every 4 hours with albuterol aerosols every 2 hours as needed for dyspnea Chest x-ray admission revealed no acute cardiopulmonary findings GI: Acute hepatitis C Hypoalbuminemia Elevated AST Elevated ammonia Advance diet as tolerated Famotidine for GI prophylaxis Lactulose 30 cc twice daily for bowel regimen/elevated ammonia level Follow-up CMP in a.m. 05/22 pending : Remove Gorman catheter Endo: SSI before meals at bedtime to maintain euglycemia/aspart low Check TSH still Renal: Creatinine currently within normal limits Monitor urine output Accurate I's and O's Heme: Normocytic anemia Elevated PTT Monitor CBC daily. Follow trends. No indication for transfusion of blood products at this time. ID: Poss CONS bacteremia L shoulder wound Blood cultures 2 revealed coag negative staph, Gram stain 05/20 revealed group B beta strep. Blood cultures 05/22 ordered Currently in vancomycin and piperacillin/tazobactam day #3 Infectious disease consultation appreciated. Left x-ray shoulders no acute finding MRI L shoulder pending FEN: Hypopotassemia Hypocalcemia Replace electrolytes as clinically indicated per ICU electrolyte protocol MSK: L shoulder pain Elevated CRP 6.14 OT eval and tx Access -Utilize peripheral IV. Central line if indicated Prophylaxis -GI -famotidine -DVT -SCD/heparin subcu Level 2 follow-up Stable from critical care medicine standpoint. Assign care to hospitalist in a.m. 05/23
[2018-05-22 12:18] LABS: Potassium 2.7 meq/L (3.5-5.1)
[2018-05-22] MEDS: Albumin Human 25% Inj 100 ML IV.SIG SCH (12:29)
[2018-05-22] MEDS: Multivitamin Inj 10 ML, Thiamine Inj 100 MG, Folic Acid Inj 1 MG in Sodium Chlor 0.9% I... IV.SIG SCH (12:31)
[2018-05-22] MEDS ORDERED: Pharmacy Ordered Lab Info OTHER ONE (12:45)
--- NOTE | 2018-05-22 13:56 | P.PNID ---
Subjective Remarks: Patient is a 38-year-old female, with a reported history of IV drug use, was found very agitated and with erratic behavior on the street. She was brought in by the police, and she apparently had crack cocaine in her possession. In the ED she apparently admits to history of IV drug use and prior history of hepatitis C. There is also mention that she was having some nausea and vomiting intermittently. She was also complaining of pain on her left shoulder, and she was found to have what looks like an abscess, and she underwent I&D in the emergency room. On presentation to the ED, we did not have her identification. She has been afebrile. Her WBC is elevated. Chest x-ray is normal. Lactic acid is normal. Her LFTs mildly elevated. Urinalysis is okay. Patient has received vancomycin and Zosyn. Her hemodynamics are okay. Infectious disease consultation has been requested to evaluate the patient with IV drug use and sepsis. Notes reviewed Temps ok More awake compared to yesterday BP ok BC negative L sjoulder C/S Strep Xray L shoulder ok Antibiotics: Zosyn Vancomycin Past Medical History: Polysubstance abuse Allergies/Adverse Reactions: Allergies No Known Allergies Allergy (Verified 05/20/18 21:35) Objective Vital Signs 05/21/18 14:48 05/21/18 16:00 05/21/18 20:00 Temperature 98.3 F Pulse Rate 73 78 77 Respiratory Rate 22 19 26 H Blood Pressure 101/65 95/55 L Pulse Oximetry 100 100 98 05/21/18 20:18 05/21/18 23:35 05/22/18 00:00 Temperature Pulse Rate 83 77 Respiratory Rate 22 19 Blood Pressure 104/69 Pulse Oximetry 99 98 99 05/22/18 04:00 05/22/18 07:20 05/22/18 08:00 Temperature 98.5 F Pulse Rate 75 93 H 90 Respiratory Rate 23 22 Blood Pressure 107/67 Pulse Oximetry 97 95 95 Intake & Output 05/21/18 05/22/18 05/22/18 18:59 06:59 18:59 Intake Total 2961.2 / 2961.2 1800 / 1800 Output Total 550 / 550 1200 / 1200 Balance 2411.2 / 2411.2 600 / 600 Weight 48.7 kg Intake: IV 2911.2 / 2911.2 1650 / 1650 NS Inj 1,000 ML @ 100 mls/hr IV 1999 / 1999 1000 / 1000 .CONT .Q10H MAG Rx#:[id number] Flexbumin 25% Inj 100 ML @ 60 200 / 200 mls/hr IV.SIG Q12H MAG Rx#: [id number] MVI-12 Inj 10 ML Thiamine Inj 511.2 / 511.2 100 MG Folvite Inj 1 MG In NS Inj 500 ML @ 125 mls/hr IV.SIG Q24H MAG Rx#:[id number] Zosyn 4.5 GM Premix 4.5 gm In 200 / 200 200 / 200 100 ml @ 200 mls/hr IV.SIG Q6H MAG Rx#:[id number] KCl 20 mEq Premix Inj 20 meq In 200 / 200 100 ml @ 50 mls/hr IV.SIG Q2H PRN Rx#:[id number] Vancomycin Inj 600 MG In NS Inj 250 / 250 250 ML @ 250 mls/hr IV.SIG Q12H MAG Rx#:[id number] Oral 50 / 50 150 / 150 Output: Urine Amount (Catheter) 550 / 550 1200 / 1200 Indwelling Urethral Catheter 550 / 550 1200 / 1200 Other: Date of Last Bowel Movement 05/22/18 # Bowel Movements 0 0 05/20/18 22:55 Blood - Peripheral Aerobic Blood Culture - Preliminary No growth in 2 days 05/20/18 22:55 Blood - Peripheral Anaerobic Blood Culture - Preliminary Staphylococcus coag negative 05/20/18 22:50 Blood - Peripheral Aerobic Blood Culture - Preliminary No growth in 2 days 05/20/18 22:50 Blood - Peripheral Anaerobic Blood Culture - Preliminary No growth in 2 days 05/20/18 20:15 Abscess - Arm Gram Stain - Final 05/20/18 20:15 Abscess - Arm Wound Culture - Final Group B beta Strep Lab - Hematology Results 05/20/18 05/21/18 05/22/18 20:15 05:43 10:23 WBC 16.9 H 11.6 H 6.6 RBC 4.09 4.02 3.82 L Hgb 11.6 11.4 L 11.1 L Hct 34.7 L 33.9 L 31.8 L MCV 84.9 84.1 83.2 MCH 28.5 28.3 29.1 MCHC 33.5 33.6 34.9 RDW 15.4 15.7 15.7 Plt Count 457 H 325 390 MPV 7.3 7.8 7.3 Neut % (Auto) 77.0 H 70.3 H 70.2 H Lymph % (Auto) 13.9 20.7 21.6 Daniels % (Auto) 8.2 H 7.1 6.6 Eos % (Auto) 0.2 1.0 0.6 Baso % (Auto) 0.7 0.9 1.0 Neut # (Auto) 13.0 H 8.1 H 4.7 Lymph # (Auto) 2.3 2.4 1.4 Daniels # (Auto) 1.4 H 0.8 0.4 Eos # (Auto) 0.0 0.1 0.0 Baso # (Auto) 0.1 0.1 0.1 WBC Differential . . . Differential Comment Auto diff final Auto diff final Auto diff final Lab - Chemistry Results 05/20/18 05/20/18 05/20/18 20:15 20:15 20:15 Sodium 133 L Potassium 3.9 Chloride 95 L Carbon Dioxide 26.8 Anion Gap 11 BUN 3 L Creatinine 0.78 Estimated GFR 64 L POC Glucose Random Glucose 85 Lactic Acid 1.9 Calcium 8.4 L Prot Corrected Calcium Phosphorus Magnesium 1.8 Total Bilirubin 1.1 H AST 66 H ALT 47 Alkaline Phosphatase 96 Ammonia Total Creatine Kinase 329 H CK-MB (CK-2) 5.5 H CK-MB (CK-2) % 1.7 Troponin I Less than 0.02 L C-Reactive Protein 6.14 H Total Protein 7.4 Albumin 3.3 L Lipase 101 TSH 05/21/18 05/21/18 05/21/18 05:43 05:43 12:09 Sodium 139 Potassium 3.0 L D Chloride 104 D Carbon Dioxide 25.0 Anion Gap 10 BUN 3 L Creatinine 0.53 Estimated GFR Greater than 89 POC Glucose 62 L Random Glucose 81 Lactic Acid 1.0 Calcium 7.1 L* D Prot Corrected Calcium 7.9 L Phosphorus 3.0 Magnesium 2.0 Total Bilirubin 1.0 AST 39 H ALT 34 Alkaline Phosphatase 69 Ammonia Total Creatine Kinase CK-MB (CK-2) CK-MB (CK-2) % Troponin I C-Reactive Protein Total Protein 5.5 L D Albumin 2.4 L D Lipase TSH 05/21/18 05/21/18 05/21/18 13:23 16:29 21:29 Sodium Potassium Chloride Carbon Dioxide Anion Gap BUN Creatinine Estimated GFR POC Glucose 128 H 90 134 H Random Glucose Lactic Acid Calcium Prot Corrected Calcium Phosphorus Magnesium Total Bilirubin AST ALT Alkaline Phosphatase Ammonia Total Creatine Kinase CK-MB (CK-2) CK-MB (CK-2) % Troponin I C-Reactive Protein Total Protein Albumin Lipase TSH 05/22/18 05/22/18 05/22/18 08:33 10:12 10:23 Sodium 145 Potassium 2.7 L* Chloride 110 H Carbon Dioxide 26.9 Anion Gap 8 BUN 3 L Creatinine 0.59 Estimated GFR 88 L POC Glucose 113 H Random Glucose 115 H Lactic Acid Calcium 7.5 L Prot Corrected Calcium Phosphorus 1.7 L D Magnesium 2.0 Total Bilirubin 0.6 AST 32 ALT 27 Alkaline Phosphatase 60 Ammonia 66 H Total Creatine Kinase CK-MB (CK-2) CK-MB (CK-2) % Troponin I C-Reactive Protein Total Protein 5.8 L Albumin 3.0 L D Lipase TSH 0.511 05/22/18 10:23 Sodium Potassium Chloride Carbon Dioxide Anion Gap BUN Creatinine Estimated GFR POC Glucose Random Glucose Lactic Acid 1.1 Calcium Prot Corrected Calcium Phosphorus Magnesium Total Bilirubin AST ALT Alkaline Phosphatase Ammonia Total Creatine Kinase CK-MB (CK-2) CK-MB (CK-2) % Troponin I C-Reactive Protein Total Protein Albumin Lipase TSH Imaging: ITS Impressions Chest X-Ray 05/20/18 20:02 CONCLUSION: No acute cardiopulmonary disease demonstrated. Shoulder X-Ray 05/21/18 00:00 CONCLUSION: Negative 2 view study. Physical Exam: GENERAL: More awake, responding, NAD SKIN: Warm and dry. Has tattoos in trunk and extremities. EYES: [place] conjunctivae, no petechia or hemorrhage. YOMI. No scleral icterus. No injection or drainage. EARS, NOSE AND THROAT: Nose without bleeding or purulent nasal discharge. No sinus tenderness. Mucous membranes moist. Unable to examine the oropharynx and she is lethargic and not able to participate NECK: Trachea midline. Supple and not tender, no meningeal signs. No nuchal rigidity. CARDIOVASCULAR: Regular rate and rhythm. No murmurs, rubs or gallops heard RESPIRATORY: Clear to auscultation. Breath sounds equal bilaterally. No rales , wheezing or rhonchi ABDOMEN: Soft, non-tender, nondistended. Bowel sounds present and normoactive. No guarding. No rebound. No organomegaly. EXTREMITIES: No clubbing, cyanosis, or edema in the lower extremities. No joint effusion. Wound L shoulder dry, I probed with Qtip and purulent drainage started coming out, swelling and erythema better, still indurated,. good ROM. NEUROLOGICAL: Awake and following. No Babinski, no ankle clonus. PSYCHIATRIC: Calm and cooperative : Gorman catheter in place, urine looks clear. LINE: No evidence of infection Assessment and Plan - Plan Impression Encephalopathy, likely metabolic, due to her active IVDU, improving Abscess L shoulder, clinically does not seem to have involvement of the joint Hx IVDU Hx Hepatitis C Recommendation Change Abx to Ancef Wound care - will pack with iodoform to facilitate further drainage Follow C/S Monitor progress D/W RN
[2018-05-22] MEDS ORDERED: Potassium Phosphate Inj 30 MMOL in Sodium Chlor 0.9% Inj 250 ML IV.SIG ONE (17:00)
[2018-05-22 17:04] LABS: Vancomycin,Trough 4.8 mcg/mL (5.0-10.0)
[2018-05-22] MEDS: Potassium Chlor 20 mEq Premix 20 MEQ/100 ML PIGGYBACK IV.SIG PRN ×2 (17:57→22:13)
[2018-05-22] MEDS: ceFAZolin Inj 2,000 MG in Sodium Chlor 0.9% Inj 80 ML IV.SIG SCH (22:14)
[2018-05-23] MEDS: Potassium Chlor 20 mEq Premix 20 MEQ/100 ML PIGGYBACK IV.SIG PRN (01:57)
[2018-05-23] MEDS: HYDROmorphone PF Inj 2 MG/ML Vial IV.PUSH PRN ×2 (02:24→06:23)
[2018-05-23] MEDS: Heparin - SQ 10,000 UNITS/ML Vial SQ SCH ×3 (06:22→15:11)
[2018-05-23] MEDS: Sod Chloride 0.9% Inj 1,000 ML IV.CONT SCH (06:24)
[2018-05-23] MEDS: Chlorhexidine Gluconate 2% 1 Pack (2 Cloths) TOPICAL SCH (06:25)
[2018-05-23] MEDS: Famotidine 20 MG Tablet PO SCH ×3 (08:27→20:24)
[2018-05-23] MEDS ORDERED: Gadobutrol PF 7.5 MMOL/7.5 ML Vial (for RAD) IV.SIG ONE (10:04)
--- NOTE | 2018-05-23 10:12 | MR ---
EXAM DATE: 05/23/2018 10:02 AM EDT AGE/SEX: 89 years / Female INDICATIONS: Abscess. Left shoulder pain with a history of IV drug injections in shoulder. CLINICAL DATA: This is the patient's subsequent encounter. Patient reports that signs and symptoms h ave been present for 2 weeks and indicates a pain score of 3/10. MEDICAL/SURGICAL HISTORY: . IVDA None. COMPARISON: No prior exams available for comparison. TECHNIQUE: Multiplanar, multisequence MRI examination was performed without and with 5 ml Gadavist (gadobutrol) contrast as a single exam dose. FINDINGS: There is cellulitis in the subcutaneous tissues mostly of the superior and lateral left shoulder. The re is also some underlying myositis involving the deltoid muscle. Several small abscesses are present . There is an apparent sinus tract and subcutaneous abscess laterally extending over a length of abou t 1.9 cm and maximal thickness of about 4 mm. There is an additional 1.3 cm subcutaneous abscess more anteriorly near the greater tuberosity and several other tiny subcentimeter microabscesses are noted . There is no significant abnormal marrow enhancement to suggest osteomyelitis. There is some fluid in the subacromial/subdeltoid bursa and in the subcoracoid region with minimal joint fluid also noted. There is left axillary adenopathy measuring up to 2 cm in diameter. CONCLUSION: 1. Multiple small abscesses with cellulitis in the soft tissues of the superior and lateral left rafal ulder. These all have short axis diameters of less than a centimeter with maximal measurements given above. Probably not amenable to percutaneous drainage at this point. There is also some underlying my ositis. 2. No evidence for osteomyelitis. 3. Left axillary adenopathy. Electronically signed by: Cecil Cowart MD 05/23/2018 10:11 AM EDT
--- NOTE | 2018-05-23 10:13 | P.PNID ---
Subjective Remarks: Patient is a 38-year-old female, with a reported history of IV drug use, was found very agitated and with erratic behavior on the street. She was brought in by the police, and she apparently had crack cocaine in her possession. In the ED she apparently admits to history of IV drug use and prior history of hepatitis C. There is also mention that she was having some nausea and vomiting intermittently. She was also complaining of pain on her left shoulder, and she was found to have what looks like an abscess, and she underwent I&D in the emergency room. On presentation to the ED, we did not have her identification. She has been afebrile. Her WBC is elevated. Chest x-ray is normal. Lactic acid is normal. Her LFTs mildly elevated. Urinalysis is okay. Patient has received vancomycin and Zosyn. Her hemodynamics are okay. Infectious disease consultation has been requested to evaluate the patient with IV drug use and sepsis. Notes reviewed D/W RN Temps ok Mental status back to normal BP ok BC negative L sjhulder C/S Strep Xray L shoulder ok Antibiotics: Ancef Past Medical History: Polysubstance abuse Allergies/Adverse Reactions: Allergies No Known Allergies Allergy (Verified 05/20/18 21:35) Objective Vital Signs 05/22/18 12:00 05/22/18 16:00 05/22/18 20:00 Temperature 98.2 F Pulse Rate 98 H 80 75 Respiratory Rate 16 Blood Pressure 116/63 110/66 110/67 Pulse Oximetry 99 69 L 94 L 05/22/18 21:35 05/22/18 21:36 05/22/18 22:24 Temperature Pulse Rate 83 Respiratory Rate 18 14 18 Blood Pressure Pulse Oximetry 05/22/18 23:46 05/23/18 00:00 05/23/18 03:49 Temperature 98.5 F Pulse Rate 85 83 Respiratory Rate 16 14 16 Blood Pressure 111/71 Pulse Oximetry 92 L 05/23/18 04:00 05/23/18 06:25 05/23/18 07:45 Temperature 98.4 F Pulse Rate 94 H Respiratory Rate 20 15 17 Blood Pressure 117/86 Pulse Oximetry 95 05/23/18 08:35 Temperature Pulse Rate 88 Respiratory Rate 18 Blood Pressure Pulse Oximetry 95 Intake & Output 05/22/18 05/23/18 05/23/18 18:59 06:59 18:59 Intake Total 1460 / 1460 711.2 / 711.2 Balance 1460 / 1460 711.2 / 711.2 Weight 52.8 kg Intake: IV 1000 / 1000 711.2 / 711.2 MVI-12 Inj 10 ML Thiamine Inj 511.2 / 511.2 100 MG Folvite Inj 1 MG In NS Inj 500 ML @ 125 mls/hr IV.SIG Q24H MAG Rx#:[id number] KCl 20 mEq Premix Inj 20 meq In 200 / 200 100 ml @ 50 mls/hr IV.SIG Q2H PRN Rx#:[id number] Oral 460 / 460 Other: Date of Last Bowel Movement 05/22/18 05/22/18 05/22/18 14:36 Blood - Peripheral Aerobic Blood Culture - Pending 05/22/18 14:36 Blood - Peripheral Anaerobic Blood Culture - Pending 05/22/18 14:26 Blood - Peripheral Aerobic Blood Culture - Pending 05/22/18 14:26 Blood - Peripheral Anaerobic Blood Culture - Pending 05/20/18 22:55 Blood - Peripheral Aerobic Blood Culture - Preliminary No growth in 2 days 05/20/18 22:55 Blood - Peripheral Anaerobic Blood Culture - Preliminary Staphylococcus coag negative 05/20/18 22:50 Blood - Peripheral Aerobic Blood Culture - Preliminary No growth in 2 days 05/20/18 22:50 Blood - Peripheral Anaerobic Blood Culture - Preliminary No growth in 2 days 05/20/18 20:15 Abscess - Arm Gram Stain - Final 05/20/18 20:15 Abscess - Arm Wound Culture - Final Group B beta Strep Lab - Hematology Results 05/22/18 10:23 WBC 6.6 RBC 3.82 L Hgb 11.1 L Hct 31.8 L MCV 83.2 MCH 29.1 MCHC 34.9 RDW 15.7 Plt Count 390 MPV 7.3 Neut % (Auto) 70.2 H Lymph % (Auto) 21.6 [place] % (Auto) 6.6 Eos % (Auto) 0.6 Baso % (Auto) 1.0 Neut # (Auto) 4.7 Lymph # (Auto) 1.4 [place] # (Auto) 0.4 Eos # (Auto) 0.0 Baso # (Auto) 0.1 WBC Differential . Differential Comment Auto diff final Lab - Chemistry Results 05/21/18 05/21/18 05/21/18 12:09 13:23 16:29 Sodium Potassium Chloride Carbon Dioxide Anion Gap BUN Creatinine Estimated GFR POC Glucose 62 L 128 H 90 Random Glucose Lactic Acid Calcium Phosphorus Magnesium Total Bilirubin AST ALT Alkaline Phosphatase Ammonia Total Protein Albumin TSH Beta HCG, Quant 05/21/18 05/22/18 05/22/18 21:29 08:33 10:12 Sodium Potassium Chloride Carbon Dioxide Anion Gap BUN Creatinine Estimated GFR POC Glucose 134 H 113 H Random Glucose Lactic Acid Calcium Phosphorus Magnesium Total Bilirubin AST ALT Alkaline Phosphatase Ammonia 66 H Total Protein Albumin TSH Beta HCG, Quant 05/22/18 05/22/18 05/22/18 10:23 10:23 14:26 Sodium 145 Potassium 2.7 L* Chloride 110 H Carbon Dioxide 26.9 Anion Gap 8 BUN 3 L Creatinine 0.59 Estimated GFR 88 L POC Glucose Random Glucose 115 H Lactic Acid 1.1 Calcium 7.5 L Phosphorus 1.7 L D Magnesium 2.0 Total Bilirubin 0.6 AST 32 ALT 27 Alkaline Phosphatase 60 Ammonia Total Protein 5.8 L Albumin 3.0 L D TSH 0.511 Beta HCG, Quant 1 05/22/18 19:53 Sodium Potassium Chloride Carbon Dioxide Anion Gap BUN Creatinine Estimated GFR POC Glucose 113 H Random Glucose Lactic Acid Calcium Phosphorus Magnesium Total Bilirubin AST ALT Alkaline Phosphatase Ammonia Total Protein Albumin TSH Beta HCG, Quant Imaging: ITS Impressions Chest X-Ray 05/20/18 20:02 CONCLUSION: No acute cardiopulmonary disease demonstrated. Shoulder X-Ray 05/21/18 00:00 CONCLUSION: Negative 2 view study. Physical Exam: GENERAL: Awake and alert, NAD SKIN: Cool and dry. Has tattoos in trunk and extremities. EYES: [place] conjunctivae, no petechia or hemorrhage. YOMI. No scleral icterus. No injection or drainage. EARS, NOSE AND THROAT: Nose without bleeding or purulent nasal discharge. No sinus tenderness. Mucous membranes moist. NECK: Trachea midline. Supple and not tender, no meningeal signs. No nuchal rigidity. CARDIOVASCULAR: Regular rate and rhythm. No murmurs, rubs or gallops heard RESPIRATORY: Clear to auscultation. Breath sounds equal bilaterally. No rales , wheezing or rhonchi ABDOMEN: Soft, non-tender, nondistended. Bowel sounds present and normoactive. No guarding. No rebound. No organomegaly. EXTREMITIES: No clubbing, cyanosis, or edema in the lower extremities. No joint effusion. Wound L shoulder with open, with serous drainage, minimal erythema, and still indurated, less tender. Good ROM, L shoulder. NEUROLOGICAL: Awake and following. No Babinski, no ankle clonus. PSYCHIATRIC: Calm and cooperative LINE: No evidence of infection Assessment and Plan - Plan Impression Encephalopathy, likely metabolic, due to her active IVDU, resolved Abscess L shoulder, clinically does not seem to have involvement of the joint - has myositis L deltoid Hx IVDU Hx Hepatitis C Recommendation Continue Ancef Wound care - will pack with iodoform to facilitate further drainage Ask GS to evaluate for possible further debridement Monitor progress D/W RN
[2018-05-23] MEDS: Insulin NovoLOG Aspart Correctional Sugar Inj SQ SCH ×4 (10:25→17:39)
--- NOTE | 2018-05-23 10:33 | P.PNIM ---
Subjective Interval history: 38-year-old female, actual name "Ashley Armstrong". no acute distress when seen today. Pain is under control. Heroin withdrawal symptoms are mild. She denies any cocaine withdrawal symptoms. Physical Exam Vital signs: Vital Signs 05/22/18 12:00 05/22/18 16:00 05/22/18 20:00 Temperature 98.2 F Pulse Rate 98 H 80 75 Respiratory Rate 16 Blood Pressure 116/63 110/66 110/67 Pulse Oximetry 99 69 L 94 L 05/22/18 21:35 05/22/18 21:36 05/22/18 22:24 Temperature Pulse Rate 83 Respiratory Rate 18 14 18 Blood Pressure Pulse Oximetry 05/22/18 23:46 05/23/18 00:00 05/23/18 03:49 Temperature 98.5 F Pulse Rate 85 83 Respiratory Rate 16 14 16 Blood Pressure 111/71 Pulse Oximetry 92 L 05/23/18 04:00 05/23/18 06:25 05/23/18 07:45 Temperature 98.4 F Pulse Rate 94 H Respiratory Rate 20 15 17 Blood Pressure 117/86 Pulse Oximetry 95 05/23/18 08:35 Temperature Pulse Rate 88 Respiratory Rate 18 Blood Pressure Pulse Oximetry 95 Intake & Output 05/22/18 05/23/18 05/23/18 18:59 06:59 18:59 Intake Total 1460 / 1460 711.2 / 711.2 Balance 1460 / 1460 711.2 / 711.2 Weight 52.8 kg Intake: IV 1000 / 1000 711.2 / 711.2 MVI-12 Inj 10 ML Thiamine Inj 511.2 / 511.2 100 MG Folvite Inj 1 MG In NS Inj 500 ML @ 125 mls/hr IV.SIG Q24H MAG Rx#:[id number] KCl 20 mEq Premix Inj 20 meq In 200 / 200 100 ml @ 50 mls/hr IV.SIG Q2H PRN Rx#:[id number] Oral 460 / 460 Other: Date of Last Bowel Movement 05/22/18 05/22/18 Narrative: GENERAL: NAD, A&Ox3 HEAD: Normocephalic. NECK: Supple, trachea midline. No lymphadenopathy. EYES: No scleral icterus. No injection or drainage. CARDIOVASCULAR: Regular rate and rhythm without murmurs, gallops, or rubs. RESPIRATORY: Breath sounds equal bilaterally. No accessory muscle use. GASTROINTESTINAL: Abdomen soft, non-tender, nondistended. MUSCULOSKELETAL: No cyanosis, or edema. SKIN: Warm and dry. Cellulitis 1 cm opening from abscess status post drainage, at the left shoulder NEURO: No focal neurological deficits. - Urinary Catheter Management Indwelling Urethral Catheter Cath placed during this visit: yes, but has since been removed by the nurse Reason for continuing: Hourly intake/output Insertion date: 05/21/18 Removal date: 05/23/18 Removal time: 08:30 Results - Labs CBC & Chem 7: 05/22/18 10:23 05/22/18 10:23 Laboratory Results - last 24 hr 05/22/18 05/22/18 05/22/18 10:12 10:23 10:23 WBC 6.6 RBC 3.82 L Hgb 11.1 L Hct 31.8 L MCV 83.2 MCH 29.1 MCHC 34.9 RDW 15.7 Plt Count 390 MPV 7.3 Neut % (Auto) 70.2 H Lymph % (Auto) 21.6 [place] % (Auto) 6.6 Eos % (Auto) 0.6 Baso % (Auto) 1.0 Neut # (Auto) 4.7 Lymph # (Auto) 1.4 [place] # (Auto) 0.4 Eos # (Auto) 0.0 Baso # (Auto) 0.1 WBC Differential . Differential Comment Auto diff final PT 10.8 INR 1.1 Sodium Potassium Chloride Carbon Dioxide Anion Gap BUN Creatinine Estimated GFR POC Glucose Random Glucose Lactic Acid Calcium Phosphorus Magnesium Total Bilirubin AST ALT Alkaline Phosphatase Ammonia 66 H Total Protein Albumin TSH Beta HCG, Quant Vancomycin Trough 05/22/18 05/22/18 05/22/18 10:23 10:23 14:26 WBC RBC Hgb Hct MCV MCH MCHC RDW Plt Count MPV Neut % (Auto) Lymph % (Auto) [place] % (Auto) Eos % (Auto) Baso % (Auto) Neut # (Auto) Lymph # (Auto) [place] # (Auto) Eos # (Auto) Baso # (Auto) WBC Differential Differential Comment PT INR Sodium 145 Potassium 2.7 L* Chloride 110 H Carbon Dioxide 26.9 Anion Gap 8 BUN 3 L Creatinine 0.59 Estimated GFR 88 L POC Glucose Random Glucose 115 H Lactic Acid 1.1 Calcium 7.5 L Phosphorus 1.7 L D Magnesium 2.0 Total Bilirubin 0.6 AST 32 ALT 27 Alkaline Phosphatase 60 Ammonia Total Protein 5.8 L Albumin 3.0 L D TSH 0.511 Beta HCG, Quant Vancomycin Trough Cancelled 05/22/18 05/22/18 14:26 19:53 WBC RBC Hgb Hct MCV MCH MCHC RDW Plt Count MPV Neut % (Auto) Lymph % (Auto) [place] % (Auto) Eos % (Auto) Baso % (Auto) Neut # (Auto) Lymph # (Auto) [place] # (Auto) Eos # (Auto) Baso # (Auto) WBC Differential Differential Comment PT INR Sodium Potassium Chloride Carbon Dioxide Anion Gap BUN Creatinine Estimated GFR POC Glucose 113 H Random Glucose Lactic Acid Calcium Phosphorus Magnesium Total Bilirubin AST ALT Alkaline Phosphatase Ammonia Total Protein Albumin TSH Beta HCG, Quant 1 Vancomycin Trough 4.8 L Microbiology 05/20/18 22:55 Blood - Peripheral Aerobic Blood Culture - Preliminary No growth in 2 days 05/20/18 22:55 Blood - Peripheral Anaerobic Blood Culture - Preliminary Staphylococcus coag negative 05/20/18 22:50 Blood - Peripheral Aerobic Blood Culture - Preliminary No growth in 2 days 05/20/18 22:50 Blood - Peripheral Anaerobic Blood Culture - Preliminary No growth in 2 days 05/20/18 20:15 Abscess - Arm Gram Stain - Final 05/20/18 20:15 Abscess - Arm Wound Culture - Final Group B beta Strep - Imaging Impressions Shoulder MRI 05/23/18 00:00 CONCLUSION: 1. Multiple small abscesses with cellulitis in the soft tissues of the superior and lateral left shoulder. These all have short axis diameters of less than a centimeter with maximal measurements given above. Probably not amenable to percutaneous drainage at this point. There is also some underlying myositis. 2. No evidence for osteomyelitis. 3. Left axillary adenopathy. Assessment and Plan - Plan 38-year-old female admitted secondary to left shoulder abscess (recurrent) and toxic encephalopathy Acute delirium secondary to polysubstance abuse Resolved Urine drug screen positive for cocaine, opiates and benzodiazepines Long-acting pain treatment added Continue as needed [place] Continue CIWA protocol as needed Acute hepatitis C Hypoalbuminemia Elevated AST Elevated ammonia Standard precautions Follow ammonia Normocytic anemia Elevated PTT Follow CBC Avoid illicit drug abuse and improve nutritional intake Hypopotassemia Hypocalcemia Follow electrolytes and replace as needed L shoulder pain Left shoulder abscess Status post spontaneous drainage MRI pending DVT prophylaxis SCDs Heparin
[2018-05-23] MEDS ORDERED: Morphine Sulfate 30 MG SR Tablet PO ONE (11:00)
--- NOTE | 2018-05-23 12:18 | P.PNWCN ---
Wound Care Nurse Consult Description: Consult for Wound Management of L shoulder per Dr Faye Communicated with: GABBY Reyes Dr Recommendation: Please follow Dr Willis instructions for cleansing daily with Iodoform packing. Additional information: Patient not seen for s/p I&D of abscess. Spoke to RN and ID regarding plans for packing per Dr Willis and possible consult for further I&D
--- NOTE | 2018-05-23 15:30 | P.CONGS ---
HPI Gen Surgery Consult Note Consult date: 05/23/18 Reason for consult: other (LEFT arm abscess) Requesting physician: Shira Willis Narrative: This is a middle aged female who arrived to the ED after being found agitated. She does report a history of IV drug abuse and hepatitis C. She reports she has had a LEFT arm abscess for several weeks now. While trashing in bed the abscess opened up and by report started drainage foul smelling purulent drainage. An MRI of the LEFT shoulder was obtained which shows multiple small abscess. She did test positive on her drug toxic screening for opiates, benzodiazepines and cocaine. Emma PIERRE from wound care has evaluated the patient and packing has been placed. A General Surgery consultation has been requested. <Marielle Rucker - Last Filed: 05/23/18 15:16> Review of Systems Constitutional: Denies chills, Denies headache(s) Eyes: Denies blurry vision Ears, Nose, Mouth, and Throat: Denies difficulty swallowing, Denies dizziness Cardiovascular: Denies chest pain, Denies chest pain at rest, Denies chest pain with activity Respiratory: Denies chest congestion, Denies cough Gastrointestinal: Denies change in stools Genitourinary: Denies pelvic pain Musculoskeletal: Denies back pain, Denies body aches Skin/Breast: Denies lesions Neurologic: Denies abnormal movements, Denies loss of vision Psychiatric: Denies anxiety Endocrine: Denies excessive sweating Hematologic/Lymphatic: Denies easy bleeding Allergic/Immunologic: Denies throat swelling, Denies tongue swelling <Marielle Rucker - Last Filed: 05/23/18 15:16> [facility] - History History Provided By: Patient - Medical History Medical History: Medical History (Last Reviewed 05/23/18 @ 15:24 by ROCCO Chandler) Crack cocaine use Hepatitis Heroin use - Tobacco History Tobacco Use In Past 30 Days: Yes Smoking Status: Cognitive impairment Tobacco Type: Cigarettes - Alcohol History How Often Do You Have a Drink Containing Alcohol: Unable to Obtain - Substance Use History Substance History: Active Abuse - Substance Use Type Crack/Cocaine Type: heroin, crack cocaine Status: Active Route Used: Intravenously - Immunization History Tetanus Immunization: <5 Years <Marielle Rucker - Last Filed: 05/23/18 15:16> - Medical History Medical History: Medical History (Last Reviewed 05/23/18 @ 15:24 by ROCCO Chandler) Crack cocaine use Hepatitis Heroin use <Cecil Bermudez - Last Filed: 05/23/18 15:43> Medications and Allergies Active Medications: Active Medications Acetaminophen (Tylenol) 650 mg PO Q6H PRN PRN Reason: Fever >101f Hydrocodone Bitart/Acetaminophen (Balsam 10/325) 1 tab PO Q4H PRN PRN Reason: Pain 7 to 10 Last Admin: 05/23/18 10:54 Dose: 1 tab Hydrocodone Bitart/Acetaminophen (Balsam 5/325) 1 tab PO Q4H PRN PRN Reason: Pain 3 to 6 Al Hydroxide/Mg Hydroxide (Milk Of Magnesia Liq) 30 ml PO Q12H PRN PRN Reason: Mild Constipation Albuterol (Albuterol Neb (Prn)) 2.5 mg NEB Q2HR NEB PRN PRN Reason: DYSPNEA Albuterol (Duoneb Neb (Will)) 1 ampul NEB Q4HR NEB WILL Last Admin: 05/23/18 12:13 Dose: 1 ampul Bisacodyl (Dulcolax Supp) 10 mg RECTAL DAILY PRN PRN Reason: SEVERE CONSITIPATION Chlorhexidine Gluconate (Chlorhexidine 2% Cloth) 3 pack TOPICAL DAILY@0400 PRN PRN Reason: Extra cloth needed Stop: 05/26/18 03:59 Chlorhexidine Gluconate (Chlorhexidine 2% Cloth) 3 pack TOPICAL DAILY@0400 WILL Stop: 05/26/18 03:59 Last Admin: 05/23/18 06:25 Dose: 3 pack Clonidine HCl (Catapres) 0.1 mg PO Q6H PRN PRN Reason: cocaine withdraw Dextrose (D50w Vial) 50 ml IV.PUSH UNSCH PRN PRN Reason: PER HYPOGLYCEMIA PROTOCOL Last Admin: 05/21/18 12:15 Dose: 50 ml Famotidine (Pepcid) 20 mg PO BID [facility] Last Admin: 05/23/18 08:27 Dose: 20 mg Flumazenil (Romazecon Inj) 0.2 mg IV.PUSH Q1M PRN PRN Reason: OVERSEDATION Glucagon (Glucagon Inj) 1 mg OTHER UNSCH PRN PRN Reason: for Hypoglycemia Protocol Haloperidol Lactate (Haldol Inj) 1 mg IV.PUSH Q15M PRN PRN Reason: for severe agitation Heparin Sodium (Porcine) (Heparin Inj) 5,000 units SQ Q8H [facility] Last Admin: 05/23/18 15:11 Dose: 5,000 units Multivitamins 10 ml/ Thiamine HCl 100 mg/ Folic Acid 1 mg/Sodium Chloride 511.2 mls @ 125 mls/hr IV.SIG Q24H WILL Stop: 05/23/18 17:06 Last Infusion: 05/23/18 06:26 Dose: Infused Cefazolin Sodium 2,000 mg/ (Sodium Chloride) 100 mls @ 200 mls/hr IV.SIG Q8H [facility] Last Admin: 05/22/18 22:14 Dose: Not Given Insulin Aspart (Novolog Insulin Correctional Sugar Inj) 0 unit SQ ACHS [facility]; Protocol Last Admin: 05/23/18 15:12 Dose: Not Given Lactulose (Lactulose Liq) 30 ml PO DAILY PRN PRN Reason: SEVERE CONSITIPATION Lactulose (Lactulose Liq) 30 ml PO BID [facility] Last Admin: 05/23/18 08:26 Dose: 30 ml Lorazepam (Ativan) 1 mg PO Q4H PRN PRN Reason: for CIWA 8-10 Lorazepam (Ativan) 2 mg PO Q2H PRN PRN Reason: for CIWA 11-14 Lorazepam (Ativan Inj) 2 mg IV.PUSH Q2H PRN PRN Reason: for CIWA 11-14 Lorazepam (Ativan Inj) 2 mg IV.PUSH Q1H PRN PRN Reason: for CIWA 15-20 Lorazepam (Ativan Inj) 1 mg IV.PUSH Q4H PRN PRN Reason: for CIWA 8-10 Lorazepam (Ativan Inj) 2 mg IV.PUSH Q15M PRN PRN Reason: for CIWA > 20 Metoclopramide HCl (Reglan Inj) 5 mg IV.PUSH Q6HR [facility]; Protocol Last Admin: 05/23/18 06:25 Dose: 5 mg Morphine Sulfate (Oramorph Sr) 30 mg PO Q12HR [facility] Ondansetron HCl (Zofran Inj) 4 mg IV.PUSH Q6H PRN PRN Reason: NAUSEA OR VOMITING Sennosides (Senokot) 17.2 mg PO Q12H PRN PRN Reason: Moderate Constipation Sodium Chloride (Ns Flush) 2 ml IV.FLUSH PRN PRN PRN Reason: FLUSH AFTER USING IV ACCESS Sodium Chloride (Ns Flush) 2 ml IV.FLUSH BID [facility] Last Admin: 05/23/18 10:41 Dose: 2 ml Temazepam (Restoril) 15 mg PO HS PRN PRN Reason: INSOMNIA <ChaimMarielle - Last Filed: 05/23/18 15:16> Active Medications: Active Medications Acetaminophen (Tylenol) 650 mg PO Q6H PRN PRN Reason: Fever >101f Hydrocodone Bitart/Acetaminophen (Balsam 10/325) 1 tab PO Q4H PRN PRN Reason: Pain 7 to 10 Last Admin: 05/23/18 10:54 Dose: 1 tab Hydrocodone Bitart/Acetaminophen (Balsam 5/325) 1 tab PO Q4H PRN PRN Reason: Pain 3 to 6 Al Hydroxide/Mg Hydroxide (Milk Of Magnesia Liq) 30 ml PO Q12H PRN PRN Reason: Mild Constipation Albuterol (Albuterol Neb (Prn)) 2.5 mg NEB Q2HR NEB PRN PRN Reason: DYSPNEA Albuterol (Duoneb Neb (Will)) 1 ampul NEB Q4HR NEB [facility] Last Admin: 05/23/18 15:25 Dose: 1 ampul Bisacodyl (Dulcolax Supp) 10 mg RECTAL DAILY PRN PRN Reason: SEVERE CONSITIPATION Chlorhexidine Gluconate (Chlorhexidine 2% Cloth) 3 pack TOPICAL DAILY@0400 PRN PRN Reason: Extra cloth needed Stop: 05/26/18 03:59 Chlorhexidine Gluconate (Chlorhexidine 2% Cloth) 3 pack TOPICAL DAILY@0400 [facility] Stop: 05/26/18 03:59 Last Admin: 05/23/18 06:25 Dose: 3 pack Clonidine HCl (Catapres) 0.1 mg PO Q6H PRN PRN Reason: cocaine withdraw Dextrose (D50w Vial) 50 ml IV.PUSH UNSCH PRN PRN Reason: PER HYPOGLYCEMIA PROTOCOL Last Admin: 05/21/18 12:15 Dose: 50 ml Famotidine (Pepcid) 20 mg PO BID [facility] Last Admin: 05/23/18 08:27 Dose: 20 mg Flumazenil (Romazecon Inj) 0.2 mg IV.PUSH Q1M PRN PRN Reason: OVERSEDATION Glucagon (Glucagon Inj) 1 mg OTHER UNSCH PRN PRN Reason: for Hypoglycemia Protocol Haloperidol Lactate (Haldol Inj) 1 mg IV.PUSH Q15M PRN PRN Reason: for severe agitation Heparin Sodium (Porcine) (Heparin Inj) 5,000 units SQ Q8H WILL Last Admin: 05/23/18 15:11 Dose: 5,000 units Multivitamins 10 ml/ Thiamine HCl 100 mg/ Folic Acid 1 mg/Sodium Chloride 511.2 mls @ 125 mls/hr IV.SIG Q24H WILL Stop: 05/23/18 17:06 Last Infusion: 05/23/18 06:26 Dose: Infused Cefazolin Sodium 2,000 mg/ (Sodium Chloride) 100 mls @ 200 mls/hr IV.SIG Q8H [facility] Last Admin: 05/22/18 22:14 Dose: Not Given Insulin Aspart (Novolog Insulin Correctional Sugar Inj) 0 unit SQ ACHS [facility]; Protocol Last Admin: 05/23/18 15:12 Dose: Not Given Lactulose (Lactulose Liq) 30 ml PO DAILY PRN PRN Reason: SEVERE CONSITIPATION Lactulose (Lactulose Liq) 30 ml PO BID [facility] Last Admin: 05/23/18 08:26 Dose: 30 ml Lorazepam (Ativan) 1 mg PO Q4H PRN PRN Reason: for CIWA 8-10 Lorazepam (Ativan) 2 mg PO Q2H PRN PRN Reason: for CIWA 11-14 Lorazepam (Ativan Inj) 2 mg IV.PUSH Q2H PRN PRN Reason: for CIWA 11-14 Lorazepam (Ativan Inj) 2 mg IV.PUSH Q1H PRN PRN Reason: for CIWA 15-20 Lorazepam (Ativan Inj) 1 mg IV.PUSH Q4H PRN PRN Reason: for CIWA 8-10 Lorazepam (Ativan Inj) 2 mg IV.PUSH Q15M PRN PRN Reason: for CIWA > 20 Metoclopramide HCl (Reglan Inj) 5 mg IV.PUSH Q6HR WILL; Protocol Last Admin: 05/23/18 06:25 Dose: 5 mg Morphine Sulfate (Oramorph Sr) 30 mg PO Q12HR WILL Ondansetron HCl (Zofran Inj) 4 mg IV.PUSH Q6H PRN PRN Reason: NAUSEA OR VOMITING Sennosides (Senokot) 17.2 mg PO Q12H PRN PRN Reason: Moderate Constipation Sodium Chloride (Ns Flush) 2 ml IV.FLUSH PRN PRN PRN Reason: FLUSH AFTER USING IV ACCESS Sodium Chloride (Ns Flush) 2 ml IV.FLUSH BID WILL Last Admin: 05/23/18 10:41 Dose: 2 ml Temazepam (Restoril) 15 mg PO HS PRN PRN Reason: INSOMNIA <Cecil Bermudez - Last Filed: 05/23/18 15:43> Allergies Allergy/AdvReac Type Severity Reaction Status Date / Time No Known Allergies Allergy Verified 05/20/18 21:35 Home Medications Medication Instructions Recorded Confirmed Type No Known Home Medications 05/21/18 05/21/18 History Exam Vital signs: Vital Signs 05/22/18 16:00 05/22/18 20:00 05/22/18 21:35 Temperature 98.2 F Pulse Rate 80 75 Respiratory Rate 16 18 Blood Pressure 110/66 110/67 Pulse Oximetry 69 L 94 L 05/22/18 21:36 05/22/18 22:24 05/22/18 23:46 Temperature Pulse Rate 83 Respiratory Rate 14 18 16 Blood Pressure Pulse Oximetry 05/23/18 00:00 05/23/18 03:49 05/23/18 04:00 Temperature 98.5 F 98.4 F Pulse Rate 85 83 94 H Respiratory Rate 14 16 20 Blood Pressure 111/71 117/86 Pulse Oximetry 92 L 95 05/23/18 06:25 05/23/18 07:45 05/23/18 08:00 Temperature 99.1 F Pulse Rate 73 Respiratory Rate 15 17 14 Blood Pressure 105/73 Pulse Oximetry 05/23/18 08:35 05/23/18 09:00 05/23/18 10:54 Temperature Pulse Rate 88 90 Respiratory Rate 18 20 Blood Pressure Pulse Oximetry 95 05/23/18 12:00 05/23/18 12:13 05/23/18 13:04 Temperature 98.9 F Pulse Rate 94 H 107 H Respiratory Rate 18 20 14 Blood Pressure 116/73 Pulse Oximetry Intake & Output 05/22/18 05/23/18 05/23/18 18:59 06:59 18:59 Intake Total 1460 / 1460 711.2 / 711.2 Balance 1460 / 1460 711.2 / 711.2 Weight 52.8 kg Intake: IV 1000 / 1000 711.2 / 711.2 MVI-12 Inj 10 ML Thiamine Inj 511.2 / 511.2 100 MG Folvite Inj 1 MG In NS Inj 500 ML @ 125 mls/hr IV.SIG Q24H WILL Rx#:[id number] KCl 20 mEq Premix Inj 20 meq In 200 / 200 100 ml @ 50 mls/hr IV.SIG Q2H PRN Rx#:[id number] Oral 460 / 460 Other: Date of Last Bowel Movement 05/22/18 05/22/18 05/23/18 Narrative: GENERAL: 38 year old female who appears much older than stated ago resting in bed in no acute distress. SKIN: LEFT upper arm with packing--- no residual fluid remains. Multiple tattoos over BUE and chest. HEAD: Atraumatic. Normocephalic. EYES: Pupils equal and round. No scleral icterus. No injection or drainage. ENT: No nasal bleeding or discharge. Mucous membranes pink and moist. NECK: Trachea midline. CARDIOVASCULAR: Regular rate and rhythm. RESPIRATORY: No accessory muscle use. Clear to auscultation. Breath sounds equal bilaterally. GASTROINTESTINAL: Abdomen soft, non-tender, nondistended. MUSCULOSKELETAL: Extremities without clubbing, cyanosis, or edema. No obvious deformities. NEUROLOGICAL: Awake and alert. No obvious cranial nerve deficits. Motor grossly within normal limits. Five out of 5 muscle strength in the arms and legs. Normal speech. PSYCHIATRIC: Appropriate mood and affect; insight and judgment normal. <Marielle Rucker - Last Filed: 05/23/18 15:16> Vital signs: Vital Signs 05/22/18 16:00 05/22/18 20:00 05/22/18 21:35 Temperature 98.2 F Pulse Rate 80 75 Respiratory Rate 16 18 Blood Pressure 110/66 110/67 Pulse Oximetry 69 L 94 L 05/22/18 21:36 05/22/18 22:24 05/22/18 23:46 Temperature Pulse Rate 83 Respiratory Rate 14 18 16 Blood Pressure Pulse Oximetry 05/23/18 00:00 05/23/18 03:49 05/23/18 04:00 Temperature 98.5 F 98.4 F Pulse Rate 85 83 94 H Respiratory Rate 14 16 20 Blood Pressure 111/71 117/86 Pulse Oximetry 92 L 95 05/23/18 06:25 05/23/18 07:45 05/23/18 08:00 Temperature 99.1 F Pulse Rate 73 Respiratory Rate 15 17 14 Blood Pressure 105/73 Pulse Oximetry 05/23/18 08:35 05/23/18 09:00 05/23/18 10:54 Temperature Pulse Rate 88 90 Respiratory Rate 18 20 Blood Pressure Pulse Oximetry 95 05/23/18 12:00 05/23/18 12:13 05/23/18 13:04 Temperature 98.9 F Pulse Rate 94 H 107 H Respiratory Rate 18 20 14 Blood Pressure 116/73 Pulse Oximetry 05/23/18 15:26 05/23/18 15:27 Temperature Pulse Rate 92 H Respiratory Rate 16 Blood Pressure Pulse Oximetry 95 Intake & Output 05/22/18 05/23/18 05/23/18 18:59 06:59 18:59 Intake Total 1460 / 1460 711.2 / 711.2 Balance 1460 / 1460 711.2 / 711.2 Weight 52.8 kg Intake: IV 1000 / 1000 711.2 / 711.2 MVI-12 Inj 10 ML Thiamine Inj 511.2 / 511.2 100 MG Folvite Inj 1 MG In NS Inj 500 ML @ 125 mls/hr IV.SIG Q24H WILL Rx#:[id number] KCl 20 mEq Premix Inj 20 meq In 200 / 200 100 ml @ 50 mls/hr IV.SIG Q2H PRN Rx#:[id number] Oral 460 / 460 Other: Date of Last Bowel Movement 05/22/18 05/22/18 05/23/18 <Cecil Bermudez - Last Filed: 05/23/18 15:43> Results - Labs 05/22/18 10:23 05/22/18 10:23 Laboratory Results WBC 6.6 th/mm3 (4.0-11.0) 05/22/18 10:23 RBC 3.82 mil/mm3 (4.00-5.30) L 05/22/18 10:23 Hgb 11.1 gm/dL (11.6-15.3) L 05/22/18 10:23 Hct 31.8 % (35.0-46.0) L 05/22/18 10:23 MCV 83.2 fL (80.0-100.0) 05/22/18 10:23 MCH 29.1 pg (27.0-34.0) 05/22/18 10:23 MCHC 34.9 % (32.0-36.0) 05/22/18 10:23 RDW 15.7 % (11.6-17.2) 05/22/18 10:23 Plt Count 390 th/mm3 (150-450) 05/22/18 10:23 MPV 7.3 fL (7.0-11.0) 05/22/18 10:23 Neut % (Auto) 70.2 % (16.0-70.0) H 05/22/18 10:23 Lymph % (Auto) 21.6 % (9.0-44.0) 05/22/18 10:23 [place] % (Auto) 6.6 % (0.0-8.0) 05/22/18 10:23 Eos % (Auto) 0.6 % (0.0-4.0) 05/22/18 10:23 Baso % (Auto) 1.0 % (0.0-2.0) 05/22/18 10:23 Neut # (Auto) 4.7 th/mm3 (1.8-7.7) 05/22/18 10:23 Lymph # (Auto) 1.4 th/mm3 (1.0-4.8) 05/22/18 10:23 [place] # (Auto) 0.4 th/mm3 (0.0-0.9) 05/22/18 10:23 Eos # (Auto) 0.0 th/mm3 (0.0-0.4) 05/22/18 10:23 Baso # (Auto) 0.1 th/mm3 (0.0-0.2) 05/22/18 10:23 WBC Differential . 05/22/18 10:23 Differential Comment Auto diff final 05/22/18 10:23 PT 10.8 sec (9.8-11.6) 05/22/18 10:23 INR 1.1 Ratio 05/22/18 10:23 APTT 32.0 sec (24.3-30.1) H 05/21/18 05:43 Sodium 145 meq/L (136-145) 05/22/18 10:23 Potassium 2.7 meq/L (3.5-5.1) L* 05/22/18 10:23 Chloride 110 meq/L (98-107) H 05/22/18 10:23 Carbon Dioxide 26.9 meq/L (21.0-32.0) 05/22/18 10:23 Anion Gap 8 meq/L (5-15) 05/22/18 10:23 BUN 3 mg/dL (7-18) L 05/22/18 10:23 Creatinine 0.59 mg/dL (0.50-1.00) 05/22/18 10:23 Estimated GFR 88 mL/min (>89) L 05/22/18 10:23 POC Glucose 102 mg/dl (68-110) 05/23/18 12:19 Random Glucose 115 mg/dL (74-106) H 05/22/18 10:23 Lactic Acid 1.1 mmol/L (0.4-2.0) 05/22/18 10:23 Calcium 7.5 mg/dL (8.5-10.1) L 05/22/18 10:23 Prot Corrected Calcium 7.9 mg/dL (8.5-10.1) L 05/21/18 05:43 Phosphorus 1.7 mg/dL (2.5-4.9) L D 05/22/18 10:23 Magnesium 2.0 mg/dL (1.5-2.5) 05/22/18 10:23 Total Bilirubin 0.6 mg/dL (0.2-1.0) 05/22/18 10:23 AST 32 U/L (15-37) 05/22/18 10:23 ALT 27 U/L (10-53) 05/22/18 10:23 Alkaline Phosphatase 60 U/L (45-117) 05/22/18 10:23 Ammonia 66 mcmol/L (11-32) H 05/22/18 10:12 Total Creatine Kinase 329 U/L (26-192) H 05/20/18 20:15 CK-MB (CK-2) 5.5 ng/mL (0.5-3.6) H 05/20/18 20:15 CK-MB (CK-2) % 1.7 % (0.0-4.0) 05/20/18 20:15 Troponin I Less than 0.02 ng/mL (0.02-0.05) L 05/20/18 20:15 C-Reactive Protein 6.14 mg/dL (0.00-0.30) H 05/20/18 20:15 Total Protein 5.8 g/dL (6.4-8.2) L 05/22/18 10:23 Albumin 3.0 g/dL (3.4-5.0) L D 05/22/18 10:23 Lipase 101 U/L (73-393) 05/20/18 20:15 TSH 0.511 uIU/mL (0.358-3.740) 05/22/18 10:23 Beta HCG, Quant 1 mIU/mL (0-5) 05/22/18 14:26 Urine Color Yellow (Yellw/Straw) 05/21/18 03:25 Urine Clarity Clear (Clear) 05/21/18 03:25 Urine pH 6.0 (5.0-8.5) 05/21/18 03:25 Ur Specific [place] 1.005 (1.002-1.035) 05/21/18 03:25 Urine Protein Negative mg/dL (Neg-Trace) 05/21/18 03:25 Urine Glucose (UA) Negative mg/dL (Negative) 05/21/18 03:25 Urine Ketones Negative mg/dL (Negative) 05/21/18 03:25 Urine Occult Blood Negative (Negative) 05/21/18 03:25 Urine Nitrate Negative (Negative) 05/21/18 03:25 Urine Bilirubin Negative (Negative) 05/21/18 03:25 Urine Urobilinogen 2.0 mg/dL (Less than 2) H 05/21/18 03:25 Ur Leukocyte Esterase Negative (Negative) 05/21/18 03:25 Urine RBC 1 /hpf (0-3) 05/21/18 03:25 Urine WBC 3 /hpf (0-5) 05/21/18 03:25 Urine Mucus Few /lpf (Occasional) H 05/21/18 03:25 Micro UA Comment Cath-culture not ind 05/21/18 03:25 Urine Culture Comments Cath-cult not ind 05/21/18 03:25 Nasal Screen MRSA (PCR) Mrsa detected (Negative) 05/21/18 03:50 Vancomycin Trough 4.8 mcg/mL (5.0-10.0) L 05/22/18 14:26 Urine Opiates Screen Pos (Neg) H 05/21/18 03:25 Ur Barbiturates Screen Neg (Neg) 05/21/18 03:25 Ur Amphetamines Screen Neg (Neg) 05/21/18 03:25 U Benzodiazepines Scrn Pos (Neg) H 05/21/18 03:25 Urine Cocaine Screen Pos (Neg) H 05/21/18 03:25 U Cannabinoids Screen Neg (Neg) 05/21/18 03:25 Impressions Chest X-Ray 05/20/18 20:02 CONCLUSION: No acute cardiopulmonary disease demonstrated. Shoulder X-Ray 05/21/18 00:00 CONCLUSION: Negative 2 view study. Shoulder MRI 05/23/18 00:00 CONCLUSION: 1. Multiple small abscesses with cellulitis in the soft tissues of the superior and lateral left shoulder. These all have short axis diameters of less than a centimeter with maximal measurements given above. Probably not amenable to percutaneous drainage at this point. There is also some underlying myositis. 2. No evidence for osteomyelitis. 3. Left axillary adenopathy. - Imaging Additional studies: MRI of LEFT shoulder <Marielle Rucker - Last Filed: 05/23/18 15:16> - Labs 05/22/18 10:23 05/22/18 10:23 Abnormal lab results 05/22/18 05/22/18 Range/Units 14:26 19:53 POC Glucose 113 H (68-110) mg/dl Vancomycin Trough 4.8 L (5.0-10.0) mcg/mL All other labs normal. - Imaging Additional studies: ITS Impressions Chest X-Ray 05/20/18 20:02 CONCLUSION: No acute cardiopulmonary disease demonstrated. Shoulder X-Ray 05/21/18 00:00 CONCLUSION: Negative 2 view study. Shoulder MRI 05/23/18 00:00 CONCLUSION: 1. Multiple small abscesses with cellulitis in the soft tissues of the superior and lateral left shoulder. These all have short axis diameters of less than a centimeter with maximal measurements given above. Probably not amenable to percutaneous drainage at this point. There is also some underlying myositis. 2. No evidence for osteomyelitis. 3. Left axillary adenopathy. <Cecil Bermudez - Last Filed: 05/23/18 15:43> Assessment and Plan - Assessment (1) Cellulitis and abscess of other specified site Code(s): L03.818 - Cellulitis of other sites; L02.818 - Cutaneous abscess of other sites Status: Acute Plan: 38 year old female with IVDA; LEFT upper abscess in the deltoid area -Spontaneously opened; now packed -Recommend continued packing daily -Regular diet -Antibiotics per ID -No further surgical needs at this time; General Surgery will sign off - Plan Discussed Condition With: Dr. Aidan Willis Patient <Marielle Rucker - Last Filed: 05/23/18 15:16> - Assessment (1) Cellulitis and abscess of other specified site Code(s): L03.818 - Cellulitis of other sites; L02.818 - Cutaneous abscess of other sites Status: Acute - Attending Attestation All my around NOTE FOR SURGICAL ATTENDING, DR. CECIL BERMUDEZ Superficial abscess in left upper extremity at the shoulder area appears to be adequately drained She has fairly good mobility and range of motion to her upper extremity on the left side At this time I recommend antibiotic therapy and local wound care. I agree with above assessment and plan. The exam, history, and the medical decision-making described in the above note were completed with the assistance of the mid-level provider. I reviewed and agree with the findings presented. I attest that I had a [id number] encounter with the patient on the same day, and personally performed and documented my assessment and findings in the medical record. The following services were provided during this hospital visit: Chart data review, vital sign assessments/reviewing monitor data Review of consultations notes if present. Medication orders/review and/or management Ordering and/or reviewing lab tests Ordering and/or interpreting/reviewing x-rays and/or diagnostic studies Care of the patient and discussion of the patient with the care team Documentation time To help prompt me to consider important information that might be impacting today's encounter and assessment, Information from prior notes written by myself or my colleagues may have been "brought forward/copy and pasted" into today's note. <Cecil Bermudez - Last Filed: 05/23/18 15:43>
[2018-05-23 19:14] LABS: Baso % (Auto) 0.2 % (0.0-2.0); Eos # (Auto) 0.1 th/mm3 (0.0-0.4); Eos % (Auto) 1.8 % (0.0-4.0); Hematocrit 32.2 % (35.0-46.0); Hemoglobin 11.2 gm/dL (11.6-15.3); Lymph # (Auto) 1.9 th/mm3 (1.0-4.8); Lymph % (Auto) 30.7 % (9.0-44.0); Mean Corpuscular HGB Conc 34.7 % (32.0-36.0); Mean Corpuscular Hemoglobin 29.1 pg (27.0-34.0); Mean Platelet Volume 7.6 fL (7.0-11.0); Mono # (Auto) 0.5 th/mm3 (0.0-0.9); Mono % (Auto) 7.2 % (0.0-8.0); Neut # (Auto) 3.8 th/mm3 (1.8-7.7); Neut % (Auto) 60.1 % (16.0-70.0); Platelet Count 416 th/mm3 (150-450); Red Blood Count 3.84 mil/mm3 (4.00-5.30); Red Cell Distribution Width 15.7 % (11.6-17.2); White Blood Count 6.3 th/mm3 (4.0-11.0)
[2018-05-23 19:37] LABS: Alanine Aminotransferase 26 U/L (10-53); Alkaline Phosphatase 77 U/L (45-117); Anion Gap 8 meq/L (5-15); Aspartate Aminotransferase 37 U/L (15-37); Blood Urea Nitrogen 4 mg/dL (7-18); Calcium 7.8 mg/dL (8.5-10.1); Carbon Dioxide 26.9 meq/L (21.0-32.0); Chloride 107 meq/L (98-107); Glomerular Filtration Rate 58 mL/min (>89); Glucose,Random 133 mg/dL (74-106); Magnesium 1.5 mg/dL (1.5-2.5); Phosphorus 2.4 mg/dL (2.5-4.9); Potassium 3.7 meq/L (3.5-5.1); Sodium 142 meq/L (136-145); Total Protein 5.9 g/dL (6.4-8.2)
[2018-05-23] MEDS: ceFAZolin Inj 2,000 MG in Sodium Chlor 0.9% Inj 80 ML IV.SIG SCH ×2 (20:18→20:19)
[2018-05-23] MEDS: Multivitamin Inj 10 ML, Thiamine Inj 100 MG, Folic Acid Inj 1 MG in Sodium Chlor 0.9% I... IV.SIG SCH (20:19)
[2018-05-23] MEDS: Morphine Sulfate 30 MG SR Tablet PO SCH (20:24)
[2018-05-24] MEDS: Heparin - SQ 10,000 UNITS/ML Vial SQ SCH ×4 (00:51→23:26)
[2018-05-24] MEDS: ceFAZolin Inj 2,000 MG in Sodium Chlor 0.9% Inj 80 ML IV.SIG SCH ×4 (01:12→23:25)
[2018-05-24] MEDS: Chlorhexidine Gluconate 2% 1 Pack (2 Cloths) TOPICAL SCH (04:14)
[2018-05-24 04:17] LABS: Baso # (Auto) 0.1 th/mm3 (0.0-0.2); Baso % (Auto) 1.2 % (0.0-2.0); Eos # (Auto) 0.2 th/mm3 (0.0-0.4); Eos % (Auto) 3.6 % (0.0-4.0); Hematocrit 31.2 % (35.0-46.0); Hemoglobin 10.8 gm/dL (11.6-15.3); Lymph # (Auto) 2.5 th/mm3 (1.0-4.8); Lymph % (Auto) 37.7 % (9.0-44.0); Mean Corpuscular HGB Conc 34.7 % (32.0-36.0); Mean Corpuscular Hemoglobin 28.8 pg (27.0-34.0); Mean Corpuscular Volume 83.2 fL (80.0-100.0); Mean Platelet Volume 7.2 fL (7.0-11.0); Mono # (Auto) 0.4 th/mm3 (0.0-0.9); Mono % (Auto) 6.5 % (0.0-8.0); Neut # (Auto) 3.4 th/mm3 (1.8-7.7); Platelet Count 392 th/mm3 (150-450); Red Blood Count 3.75 mil/mm3 (4.00-5.30); Red Cell Distribution Width 15.6 % (11.6-17.2); White Blood Count 6.6 th/mm3 (4.0-11.0)
[2018-05-24 04:34] LABS: Albumin 2.8 g/dL (3.4-5.0); Anion Gap 9 meq/L (5-15); Aspartate Aminotransferase 49 U/L (15-37); Blood Urea Nitrogen 5 mg/dL (7-18); Carbon Dioxide 26.7 meq/L (21.0-32.0); Chloride 105 meq/L (98-107); Glomerular Filtration Rate 79 mL/min (>89); Glucose,Random 98 mg/dL (74-106); Magnesium 1.6 mg/dL (1.5-2.5); Potassium 3.9 meq/L (3.5-5.1); Sodium 141 meq/L (136-145)
[2018-05-24 04:47] LABS: Alanine Aminotransferase 26 U/L (10-53); Alkaline Phosphatase 71 U/L (45-117); Phosphorus 3.8 mg/dL (2.5-4.9); Total Protein 5.8 g/dL (6.4-8.2)
[2018-05-24] MEDS: Famotidine 20 MG Tablet PO SCH ×2 (08:19→20:57)
[2018-05-24] MEDS: Morphine Sulfate 30 MG SR Tablet PO SCH ×2 (08:20→20:57)
--- NOTE | 2018-05-24 10:11 | P.PN ---
Subjective Interval history: This is a pleasant 38-year-old female Heroin, with abscess on left shoulder, continue packing and antibiotics, no complaint, no nausea, vomit or diarrhea. seen in the presence of Nurse. Physical Exam Vital signs: Vital Signs 05/23/18 10:54 05/23/18 12:00 05/23/18 12:13 Temperature 98.9 F Pulse Rate 94 H 107 H Respiratory Rate 20 18 20 Blood Pressure 116/73 Pulse Oximetry 05/23/18 13:04 05/23/18 15:26 05/23/18 15:27 Temperature Pulse Rate 92 H Respiratory Rate 14 16 Blood Pressure Pulse Oximetry 95 05/23/18 16:00 05/23/18 20:00 05/24/18 00:00 Temperature 97.9 F 99.1 F 99 F Pulse Rate 97 H 98 H 83 Respiratory Rate 17 18 18 Blood Pressure 112/78 107/72 113/75 Pulse Oximetry 98 97 96 05/24/18 08:00 05/24/18 08:24 Temperature 98.2 F Pulse Rate 77 83 Respiratory Rate 18 12 Blood Pressure 118/84 Pulse Oximetry 98 98 Intake & Output 05/23/18 05/24/18 05/24/18 18:59 06:59 18:59 Intake Total 420 / 420 Balance 420 / 420 Weight 49.9 kg Intake: IV 100 / 100 Ancef Inj 2,000 MG In NS Inj 80 100 / 100 ML @ 200 mls/hr IV.SIG Q8H MAG Rx#:[id number] Oral 320 / 320 Other: # Voids 3 Date of Last Bowel Movement 05/23/18 # Bowel Movements 1 Narrative: GENERAL: NAD, A&Ox3 HEAD: Normocephalic. NECK: Supple, trachea midline. No lymphadenopathy. EYES: No scleral icterus. No injection or drainage. CARDIOVASCULAR: Regular rate and rhythm without murmurs, gallops, or rubs. RESPIRATORY: Breath sounds equal bilaterally. No accessory muscle use. GASTROINTESTINAL: Abdomen soft, non-tender, nondistended. MUSCULOSKELETAL: No cyanosis, or edema. SKIN: Warm and dry. dressed left shoulder. NEURO: No focal neurological deficits. - Urinary Catheter Management Indwelling Urethral Catheter Cath placed during this visit: yes, but has since been removed by the nurse Reason for continuing: Hourly intake/output Insertion date: 05/21/18 Removal date: 05/23/18 Removal time: 08:30 Results - Labs CBC & Chem 7: 05/24/18 04:04 05/24/18 04:04 Laboratory Results - last 24 hr 05/23/18 05/23/18 05/23/18 12:19 17:38 18:38 WBC 6.3 RBC 3.84 L Hgb 11.2 L Hct 32.2 L MCV 84.0 MCH 29.1 MCHC 34.7 RDW 15.7 Plt Count 416 MPV 7.6 Neut % (Auto) 60.1 Lymph % (Auto) 30.7 [place] % (Auto) 7.2 Eos % (Auto) 1.8 Baso % (Auto) 0.2 Neut # (Auto) 3.8 Lymph # (Auto) 1.9 [place] # (Auto) 0.5 Eos # (Auto) 0.1 Baso # (Auto) 0.0 WBC Differential . Differential Comment Auto diff final Sodium Potassium Chloride Carbon Dioxide Anion Gap BUN Creatinine Estimated GFR POC Glucose 102 111 H Random Glucose Calcium Phosphorus Magnesium Total Bilirubin AST ALT Alkaline Phosphatase Ammonia Total Protein Albumin 05/23/18 05/23/18 05/24/18 18:38 18:38 04:04 WBC 6.6 RBC 3.75 L Hgb 10.8 L Hct 31.2 L MCV 83.2 MCH 28.8 MCHC 34.7 RDW 15.6 Plt Count 392 MPV 7.2 Neut % (Auto) 51.0 Lymph % (Auto) 37.7 [place] % (Auto) 6.5 Eos % (Auto) 3.6 Baso % (Auto) 1.2 Neut # (Auto) 3.4 Lymph # (Auto) 2.5 [place] # (Auto) 0.4 Eos # (Auto) 0.2 Baso # (Auto) 0.1 WBC Differential . Differential Comment Auto diff final Sodium 142 Potassium 3.7 D Cancelled Chloride 107 Carbon Dioxide 26.9 Anion Gap 8 BUN 4 L Creatinine 0.85 Estimated GFR 58 L POC Glucose Random Glucose 133 H Calcium 7.8 L Phosphorus 2.4 L Magnesium 1.5 Total Bilirubin 0.2 AST 37 ALT 26 Alkaline Phosphatase 77 Ammonia Total Protein 5.9 L Albumin 3.0 L 05/24/18 05/24/18 04:04 04:04 WBC RBC Hgb Hct MCV MCH MCHC RDW Plt Count MPV Neut % (Auto) Lymph % (Auto) [place] % (Auto) Eos % (Auto) Baso % (Auto) Neut # (Auto) Lymph # (Auto) [place] # (Auto) Eos # (Auto) Baso # (Auto) WBC Differential Differential Comment Sodium 141 Potassium 3.9 Chloride 105 Carbon Dioxide 26.7 Anion Gap 9 BUN 5 L Creatinine 0.65 Estimated GFR 79 L POC Glucose Random Glucose 98 Calcium 8.0 L Phosphorus 3.8 D Magnesium 1.6 Total Bilirubin 0.2 AST 49 H ALT 26 Alkaline Phosphatase 71 Ammonia 42 H Total Protein 5.8 L Albumin 2.8 L Microbiology 05/20/18 22:55 Blood - Peripheral Aerobic Blood Culture - Preliminary 05/20/18 22:55 Blood - Peripheral Anaerobic Blood Culture - Preliminary 05/22/18 14:36 Blood - Peripheral Aerobic Blood Culture - Preliminary No growth in 1 day 05/22/18 14:36 Blood - Peripheral Anaerobic Blood Culture - Preliminary No growth in 1 day 05/22/18 14:26 Blood - Peripheral Aerobic Blood Culture - Preliminary No growth in 1 day 05/22/18 14:26 Blood - Peripheral Anaerobic Blood Culture - Preliminary No growth in 1 day 05/20/18 22:50 Blood - Peripheral Aerobic Blood Culture - Preliminary No growth in 3 days 05/20/18 22:50 Blood - Peripheral Anaerobic Blood Culture - Preliminary No growth in 3 days - Imaging Impressions Shoulder MRI 05/23/18 00:00 CONCLUSION: 1. Multiple small abscesses with cellulitis in the soft tissues of the superior and lateral left shoulder. These all have short axis diameters of less than a centimeter with maximal measurements given above. Probably not amenable to percutaneous drainage at this point. There is also some underlying myositis. 2. No evidence for osteomyelitis. 3. Left axillary adenopathy. Assessment and Plan - Plan 38-year-old female admitted secondary to left shoulder abscess (recurrent) and toxic encephalopathy Acute delirium secondary to polysubstance abuse Resolved Urine drug screen positive for cocaine, opiates and benzodiazepines Long-acting pain treatment added Continue as needed [place] Continue CIWA protocol as needed Acute hepatitis C Hypoalbuminemia Elevated AST Elevated ammonia Standard precautions Follow ammonia Normocytic anemia Elevated PTT Follow CBC Avoid illicit drug abuse and improve nutritional intake Hypopotassemia Hypocalcemia Follow electrolytes and replace as needed L shoulder pain, positive culture for Group B Beta Strep. Left shoulder abscess Status post spontaneous drainage MRI pending Bacteremia secondary to Staph Cohnii Urealyticum will be seen by ID on Saturday. DVT prophylaxis SCDs Heparin Code Status: Full Code. Discussed Condition With: patient and nurse Discharge Planning: Once cleared by ID specialist.
[2018-05-25] MEDS: Heparin - SQ 10,000 UNITS/ML Vial SQ SCH ×3 (06:11→22:01)
[2018-05-25] MEDS: ceFAZolin Inj 2,000 MG in Sodium Chlor 0.9% Inj 80 ML IV.SIG SCH ×3 (06:12→22:02)
[2018-05-25] MEDS: Chlorhexidine Gluconate 2% 1 Pack (2 Cloths) TOPICAL SCH (06:12)
[2018-05-25] MEDS: Morphine Sulfate 30 MG SR Tablet PO SCH ×2 (08:22→20:50)
[2018-05-25] MEDS: Famotidine 20 MG Tablet PO SCH ×2 (08:22→20:50)
--- NOTE | 2018-05-25 16:43 | P.PN ---
Subjective Interval history: This is a pleasant 38-year-old female Heroin, with abscess on left shoulder, continue packing and antibiotics, today no complaint by patient, seen in the presence of relative , also discussed with nurse Toyin Aashish continue present care. Physical Exam Vital signs: Vital Signs 05/24/18 20:00 05/25/18 00:00 05/25/18 08:00 Temperature 98.2 F 98.1 F 97.7 F Pulse Rate 75 86 69 Respiratory Rate 17 17 18 Blood Pressure 122/72 122/77 102/58 L Pulse Oximetry 98 96 97 05/25/18 08:27 05/25/18 08:52 05/25/18 12:00 Temperature 97.6 F Pulse Rate 73 80 Respiratory Rate 15 18 18 Blood Pressure 110/66 Pulse Oximetry 96 96 05/25/18 16:00 Temperature 97.9 F Pulse Rate 78 Respiratory Rate 18 Blood Pressure 102/54 L Pulse Oximetry 98 Intake & Output 05/24/18 05/25/18 05/25/18 18:59 06:59 18:59 Intake Total 200 / 200 340 / 340 100 / 100 Balance 200 / 200 340 / 340 100 / 100 Intake: IV 200 / 200 100 / 100 100 / 100 Ancef Inj 2,000 MG In NS Inj 80 200 / 200 100 / 100 100 / 100 ML @ 200 mls/hr IV.SIG Q8H MAG Rx#:[id number] Oral 240 / 240 Other: # Voids 4 2 Date of Last Bowel Movement 05/23/18 05/24/18 Narrative: GENERAL: NAD, A&Ox3 HEAD: Normocephalic. NECK: Supple, trachea midline. No lymphadenopathy. EYES: No scleral icterus. No injection or drainage. CARDIOVASCULAR: Regular rate and rhythm without murmurs, gallops, or rubs. RESPIRATORY: Breath sounds equal bilaterally. No accessory muscle use. GASTROINTESTINAL: Abdomen soft, non-tender, nondistended. MUSCULOSKELETAL: No cyanosis, or edema. SKIN: Warm and dry. dressed left shoulder. NEURO: No focal neurological deficits. - Urinary Catheter Management Indwelling Urethral Catheter Cath placed during this visit: yes, but has since been removed by the nurse Reason for continuing: Hourly intake/output Insertion date: 05/21/18 Removal date: 05/23/18 Removal time: 08:30 Results - Labs CBC & Chem 7: 05/24/18 04:04 05/24/18 04:04 Microbiology 05/22/18 14:36 Blood - Peripheral Aerobic Blood Culture - Preliminary No growth in 3 days 05/22/18 14:36 Blood - Peripheral Anaerobic Blood Culture - Preliminary No growth in 3 days 05/22/18 14:26 Blood - Peripheral Aerobic Blood Culture - Preliminary No growth in 3 days 05/22/18 14:26 Blood - Peripheral Anaerobic Blood Culture - Preliminary No growth in 3 days 05/20/18 22:50 Blood - Peripheral Aerobic Blood Culture - Final No growth in 5 days 05/20/18 22:50 Blood - Peripheral Anaerobic Blood Culture - Preliminary Staphylococcus coag negative 05/20/18 22:55 Blood - Peripheral Aerobic Blood Culture - Final Staph. cohnii-urealyticum 05/20/18 22:55 Blood - Peripheral Anaerobic Blood Culture - Final Assessment and Plan - Plan 38-year-old female admitted secondary to left shoulder abscess (recurrent) and toxic encephalopathy Acute delirium secondary to polysubstance abuse Resolved Urine drug screen positive for cocaine, opiates and benzodiazepines Long-acting pain treatment added Continue as needed [place] Continue CIWA protocol as needed Acute hepatitis C Hypoalbuminemia Elevated AST Elevated ammonia Standard precautions Follow ammonia Normocytic anemia Elevated PTT Follow CBC Avoid illicit drug abuse and improve nutritional intake Hypopotassemia Hypocalcemia Follow electrolytes and replace as needed L shoulder pain, positive culture for Group B Beta Strep. Left shoulder abscess Status post spontaneous drainage MRI pending Bacteremia secondary to Staph Cohnii Urealyticum will be seen by ID Tomorrow. DVT prophylaxis SCDs Heparin Code Status: Full code. Discussed Condition With: patient, nurse Mr. Zendejas and relative. Discharge Planning: Once cleared by ID specialist.
[2018-05-26] MEDS: Heparin - SQ 10,000 UNITS/ML Vial SQ SCH (06:24)
[2018-05-26] MEDS: ceFAZolin Inj 2,000 MG in Sodium Chlor 0.9% Inj 80 ML IV.SIG SCH (06:25)
[2018-05-26] MEDS: Morphine Sulfate 30 MG SR Tablet PO SCH (08:01)
[2018-05-26] MEDS: Famotidine 20 MG Tablet PO SCH (08:01)
[2018-05-26 09:27] VITALS: O2SAT 97
--- NOTE | 2018-05-26 11:33 | P.PNID ---
Subjective Remarks: Patient is a 38-year-old female, with a reported history of IV drug use, was found very agitated and with erratic behavior on the street. She was brought in by the police, and she apparently had crack cocaine in her possession. In the ED she apparently admits to history of IV drug use and prior history of hepatitis C. There is also mention that she was having some nausea and vomiting intermittently. She was also complaining of pain on her left shoulder, and she was found to have what looks like an abscess, and she underwent I&D in the emergency room. On presentation to the ED, we did not have her identification. She has been afebrile. Her WBC is elevated. Chest x-ray is normal. Lactic acid is normal. Her LFTs mildly elevated. Urinalysis is okay. Patient has received vancomycin and Zosyn. Her hemodynamics are okay. Infectious disease consultation has been requested to evaluate the patient with IV drug use and sepsis. Notes reviewed Temps ok Doing well D/W surgery Antibiotics: Ancef Past Medical History: Polysubstance abuse Allergies/Adverse Reactions: Allergies No Known Allergies Allergy (Verified 05/20/18 21:35) Objective Vital Signs 05/25/18 12:00 05/25/18 16:00 05/25/18 20:00 Temperature 97.6 F 97.9 F 97.9 F Pulse Rate 80 78 72 Respiratory Rate 18 18 17 Blood Pressure 110/66 102/54 L 97/53 L Pulse Oximetry 96 98 97 05/26/18 00:00 05/26/18 08:00 05/26/18 08:31 Temperature 97.4 F L 97.8 F Pulse Rate 70 65 Respiratory Rate 17 18 18 Blood Pressure 97/57 L 93/50 L Pulse Oximetry 98 97 Intake & Output 05/25/18 05/26/18 05/26/18 18:59 06:59 18:59 Intake Total 1300 / 1300 100 / 100 100 / 100 Balance 1300 / 1300 100 / 100 100 / 100 Intake: IV 200 / 200 100 / 100 100 / 100 Ancef Inj 2,000 MG In NS Inj 80 200 / 200 100 / 100 100 / 100 ML @ 200 mls/hr IV.SIG Q8H MAG Rx#:[id number] Oral 1100 / 1100 Other: # Voids 3 Date of Last Bowel Movement 05/24/18 05/25/1818 14:36 Blood - Peripheral Aerobic Blood Culture - Preliminary No growth in 4 days 05/22/18 14:36 Blood - Peripheral Anaerobic Blood Culture - Preliminary No growth in 4 days 05/22/18 14:26 Blood - Peripheral Aerobic Blood Culture - Preliminary No growth in 4 days 05/22/18 14:26 Blood - Peripheral Anaerobic Blood Culture - Preliminary No growth in 4 days 05/20/18 22:50 Blood - Peripheral Aerobic Blood Culture - Final No growth in 5 days 05/20/18 22:50 Blood - Peripheral Anaerobic Blood Culture - Preliminary Staphylococcus coag negative 05/20/18 22:55 Blood - Peripheral Aerobic Blood Culture - Final Staph. cohnii-urealyticum 05/20/18 22:55 Blood - Peripheral Anaerobic Blood Culture - Final Imaging: ITS Impressions Chest X-Ray 05/20/18 20:02 CONCLUSION: No acute cardiopulmonary disease demonstrated. Shoulder X-Ray 05/21/18 00:00 CONCLUSION: Negative 2 view study. Shoulder MRI 05/23/18 00:00 CONCLUSION: 1. Multiple small abscesses with cellulitis in the soft tissues of the superior and lateral left shoulder. These all have short axis diameters of less than a centimeter with maximal measurements given above. Probably not amenable to percutaneous drainage at this point. There is also some underlying myositis. 2. No evidence for osteomyelitis. 3. Left axillary adenopathy. Physical Exam: GENERAL: Awake and alert, NAD SKIN: Cool and dry. Has tattoos in trunk and extremities. EYES: [place] conjunctivae, no petechia or hemorrhage. YOMI. No scleral icterus. No injection or drainage. EARS, NOSE AND THROAT: Nose without bleeding or purulent nasal discharge. Mucous membranes moist. NECK: Trachea midline. Supple and not tender, no meningeal signs. No nuchal rigidity. CARDIOVASCULAR: Regular rate and rhythm. No murmurs, rubs or gallops heard RESPIRATORY: Clear to auscultation. Breath sounds equal bilaterally. No rales , wheezing or rhonchi ABDOMEN: Soft, non-tender, nondistended. Bowel sounds present and normoactive. No guarding. No rebound. No organomegaly. EXTREMITIES: No clubbing, cyanosis, or edema in the lower extremities. No joint effusion. Wound L shoulder with packing, induration markedly improved, no erythema, min tenderness. NEUROLOGICAL: Non-focal PSYCHIATRIC: Calm and cooperative LINE: No evidence of infection Assessment and Plan - Plan Impression Encephalopathy, likely metabolic, due to her active IVDU, resolved Abscess L shoulder, clinically does not seem to have involvement of the joint Hx IVDU Hx Hepatitis C Recommendation PO keflex x 14 more days Will ask CM to assist in getting her Abx Wound care - will pack with iodoform to facilitate further drainage - ?how to do her wonud care on D/C Stable for D/C from ID standpoint Explained plan to the patient
--- NOTE | 2018-05-26 13:00 | P.PN ---
Subjective Interval history: This is a pleasant 38 y/o female who is IVDU, who was found very agitated and with erratic behavior on the street. She was brought in by the police, and she apparently had crack cocaine in her possession. In the ED she apparently admits to history of IV drug use and prior history of hepatitis C. There is also mention that she was having some nausea and vomiting intermittently. She was also complaining of pain on her left shoulder, and she was found to have what looks like an abscess, and she underwent I&D in the emergency room. On presentation to the ED, we did not have her identification. She has been afebrile. Her WBC is elevated. Chest x-ray is normal. Lactic acid is normal. Her LFTs mildly elevated. Urinalysis is okay. Patient has received vancomycin and Zosyn. status post I and D, improving condition, was on Ancef, recommended today to go on Cephalexin 500 mg every 8 hours for 14 days, continue wound care, discussed with nurse Mr. Zendejas and with hospitality services manager everything ready for the patient to go home. No complaint by patient wants to go home. Physical Exam Vital signs: Vital Signs 05/25/18 16:00 05/25/18 20:00 05/26/18 00:00 Temperature 97.9 F 97.9 F 97.4 F L Pulse Rate 78 72 70 Respiratory Rate 18 17 17 Blood Pressure 102/54 L 97/53 L 97/57 L Pulse Oximetry 98 97 98 05/26/18 08:00 05/26/18 08:31 Temperature 97.8 F Pulse Rate 65 Respiratory Rate 18 18 Blood Pressure 93/50 L Pulse Oximetry 97 Intake & Output 05/25/18 05/26/18 05/26/18 18:59 06:59 18:59 Intake Total 1300 / 1300 100 / 100 100 / 100 Balance 1300 / 1300 100 / 100 100 / 100 Intake: IV 200 / 200 100 / 100 100 / 100 Ancef Inj 2,000 MG In NS Inj 80 200 / 200 100 / 100 100 / 100 ML @ 200 mls/hr IV.SIG Q8H MAG Rx#:[id number] Oral 1100 / 1100 Other: # Voids 3 Date of Last Bowel Movement 05/24/18 05/25/18 Narrative: GENERAL: NAD, A&Ox3 HEAD: Normocephalic. NECK: Supple, trachea midline. No lymphadenopathy. EYES: No scleral icterus. No injection or drainage. CARDIOVASCULAR: Regular rate and rhythm without murmurs, gallops, or rubs. RESPIRATORY: Breath sounds equal bilaterally. No accessory muscle use. GASTROINTESTINAL: Abdomen soft, non-tender, nondistended. MUSCULOSKELETAL: No cyanosis, or edema. SKIN: Warm and dry. dressed left shoulder. NEURO: No focal neurological deficits. - Urinary Catheter Management Indwelling Urethral Catheter Cath placed during this visit: yes, but has since been removed by the nurse Reason for continuing: Hourly intake/output Insertion date: 05/21/18 Removal date: 05/23/18 Removal time: 08:30 Results - Labs CBC & Chem 7: 05/24/18 04:04 05/24/18 04:04 Microbiology 05/22/18 14:36 Blood - Peripheral Aerobic Blood Culture - Preliminary No growth in 4 days 05/22/18 14:36 Blood - Peripheral Anaerobic Blood Culture - Preliminary No growth in 4 days 05/22/18 14:26 Blood - Peripheral Aerobic Blood Culture - Preliminary No growth in 4 days 05/22/18 14:26 Blood - Peripheral Anaerobic Blood Culture - Preliminary No growth in 4 days 05/20/18 22:50 Blood - Peripheral Aerobic Blood Culture - Final No growth in 5 days 05/20/18 22:50 Blood - Peripheral Anaerobic Blood Culture - Preliminary Staphylococcus coag negative 05/20/18 22:55 Blood - Peripheral Aerobic Blood Culture - Final Staph. cohnii-urealyticum 05/20/18 22:55 Blood - Peripheral Anaerobic Blood Culture - Final - Imaging Shoulder MRI 05/23/18 00:00 CONCLUSION: 1. Multiple small abscesses with cellulitis in the soft tissues of the superior and lateral left shoulder. These all have short axis diameters of less than a centimeter with maximal measurements given above. Probably not amenable to percutaneous drainage at this point. There is also some underlying myositis. 2. No evidence for osteomyelitis. 3. Left axillary adenopathy. Assessment and Plan - Plan 38-year-old female admitted secondary to left shoulder abscess (recurrent) and toxic encephalopathy Acute delirium secondary to polysubstance abuse Resolved Urine drug screen positive for cocaine, opiates and benzodiazepines, Heroin addict. Long-acting pain treatment added Continue as needed [place] Continue CIWA protocol as needed Acute hepatitis C Hypoalbuminemia Elevated AST Elevated ammonia Standard precautions Normocytic anemia Elevated PTT Follow CBC Avoid illicit drug abuse and improve nutritional intake Hypopotassemia Hypocalcemia Replaced L shoulder pain, positive culture for Group B Beta Strep. Left shoulder abscess Status post spontaneous drainage status post I and D, recommended by ID specialist to continue on Keflex for 14 days, discussed with hospitality services manager helping to fill the medicine for the patient, Discussed about wound care her relative and patient will learn how to perform the wound care, Bacteremia secondary to Staph Cohnii Urealyticum to continue Keflex for 14 days no discharge. DVT prophylaxis SCDs Heparin Code Status: Full Code. Discussed Condition With: patient, Nurse Mr. Zendejas and hospitality services manager. Discharge Planning: Once cleared by ID specialist.
[2018-05-26 13:04] VITALS: BP 105/57; PULSE 67; RESP 16; TEMP 97.7
--- NOTE | 2018-05-26 13:11 | P.DS ---
Date of admission: 05/20/18 22:16 Primary care physician: No Primary Care Physician Attending physician on discharge: Popeye Leary Anticipated date of discharge: 05/26/18 Brief History from admission: 38 year old female presents with a history of being found agitated, erratic on the street prior to arrival. The patient had crack cocaine in her possession according to the police report. The patient freely admits to using heroin and crack earlier today. She admits a history of IV drug use and a prior history of hepatitis C. The patient reports having nausea and vomiting intermittently. She is unsure how many times she has vomited. The patient's review of systems is limited as well as her medical history is limited given her acute agitation and intoxication with heroin and crack cocaine. She had an abscess on her left shoulder that popped out in the emergency department and is draining foul- smelling pus. DS: Diagnosis - Discharge Diagnosis (1) Cellulitis and abscess of other specified site Status: Acute (2) Polysubstance abuse Status: Acute (3) SIRS (systemic inflammatory response syndrome) Status: Acute (4) Acute hysterical psychosis Status: Acute DS: Medications - Discharge Medications Prescriptions: cephalexin 500 mg PO Q8HR 14 Days #42 cap DS: Summary Hospital Course: This is a pleasant 38 y/o female who is IVDU, who was found very agitated and with erratic behavior on the street. She was brought in by the police, and she apparently had crack cocaine in her possession. In the ED she apparently admits to history of IV drug use and prior history of hepatitis C. There is also mention that she was having some nausea and vomiting intermittently. She was also complaining of pain on her left shoulder, and she was found to have what looks like an abscess, and she underwent I&D in the emergency room. On presentation to the ED, we did not have her identification. She has been afebrile. Her WBC is elevated. Chest x-ray is normal. Lactic acid is normal. Her LFTs mildly elevated. Urinalysis is okay. Patient has received vancomycin and Zosyn. status post I and D, improving condition, was on Ancef, recommended today to go on Cephalexin 500 mg every 8 hours for 14 days, continue wound care, discussed with nurse Mr. Zendejas and with [employer] manager everything ready for the patient to go home. No complaint by patient wants to go home. Shoulder MRI 05/23/18 00:00 CONCLUSION: 1. Multiple small abscesses with cellulitis in the soft tissues of the superior and lateral left shoulder. These all have short axis diameters of less than a centimeter with maximal measurements given above. Probably not amenable to percutaneous drainage at this point. There is also some underlying myositis. 2. No evidence for osteomyelitis. 3. Left axillary adenopathy. Assessment and Plan - Plan 38-year-old female admitted secondary to left shoulder abscess (recurrent) and toxic encephalopathy Acute delirium secondary to polysubstance abuse Resolved Urine drug screen positive for cocaine, opiates and benzodiazepines, Heroin addict. Long-acting pain treatment added Continue as needed [place] Continue CIWA protocol as needed Acute hepatitis C Hypoalbuminemia Elevated AST Elevated ammonia Standard precautions Normocytic anemia Elevated PTT Follow CBC Avoid illicit drug abuse and improve nutritional intake Hypopotassemia Hypocalcemia Replaced L shoulder pain, positive culture for Group B Beta Strep. Left shoulder abscess Status post spontaneous drainage status post I and D, recommended by ID specialist to continue on Keflex for 14 days, discussed with [employer] manager helping to fill the medicine for the patient, Discussed about wound care her relative and patient will learn how to perform the wound care, Bacteremia secondary to Staph Cohnii Urealyticum to continue Keflex for 14 days no discharge. DVT prophylaxis SCDs Heparin Code Status: Full Code. Discussed Condition With: patient, Nurse Mr. Zendejas and [employer] manager. Discharge Planning: Once cleared by ID specialist. - Time Spent with Patient Total time spent providing and/or coordinating discharge services: Greater than 30 minutes Exam Vital signs: Vital Signs 05/25/18 16:00 05/25/18 20:00 05/26/18 00:00 Temperature 97.9 F 97.9 F 97.4 F L Pulse Rate 78 72 70 Respiratory Rate 18 17 17 Blood Pressure 102/54 L 97/53 L 97/57 L Pulse Oximetry 98 97 98 05/26/18 08:00 05/26/18 08:31 05/26/18 12:00 Temperature 97.8 F 97.7 F Pulse Rate 65 67 Respiratory Rate 18 18 16 Blood Pressure 93/50 L 105/57 L Pulse Oximetry 97 97 Intake & Output 05/25/18 05/26/18 05/26/18 18:59 06:59 18:59 Intake Total 1300 / 1300 100 / 100 100 / 100 Balance 1300 / 1300 100 / 100 100 / 100 Intake: IV 200 / 200 100 / 100 100 / 100 Ancef Inj 2,000 MG In NS Inj 80 200 / 200 100 / 100 100 / 100 ML @ 200 mls/hr IV.SIG Q8H MAG Rx#:[id number] Oral 1100 / 1100 Other: # Voids 3 Date of Last Bowel Movement 05/24/18 05/25/18 Narrative: GENERAL: NAD, A&Ox3 HEAD: Normocephalic. NECK: Supple, trachea midline. No lymphadenopathy. EYES: No scleral icterus. No injection or drainage. CARDIOVASCULAR: Regular rate and rhythm without murmurs, gallops, or rubs. RESPIRATORY: Breath sounds equal bilaterally. No accessory muscle use. GASTROINTESTINAL: Abdomen soft, non-tender, nondistended. MUSCULOSKELETAL: No cyanosis, or edema. SKIN: Warm and dry. dressed left shoulder. NEURO: No focal neurological deficits. Results Procedures completed during hospitalization: I and D. Labs on day of discharge: Preliminary micro results at discharge 05/22/18 14:36 Aerobic Blood Culture - Preliminary Blood - Peripheral No growth in 4 days Anaerobic Blood Culture - Preliminary No growth in 4 days 05/22/18 14:26 Aerobic Blood Culture - Preliminary Blood - Peripheral No growth in 4 days Anaerobic Blood Culture - Preliminary No growth in 4 days 05/20/18 22:50 Anaerobic Blood Culture - Preliminary Blood - Peripheral Staphylococcus coag negative - Impressions ITS Impressions Chest X-Ray 05/20/18 20:02 CONCLUSION: No acute cardiopulmonary disease demonstrated. Shoulder X-Ray 05/21/18 00:00 CONCLUSION: Negative 2 view study. Shoulder MRI 05/23/18 00:00 CONCLUSION: 1. Multiple small abscesses with cellulitis in the soft tissues of the superior and lateral left shoulder. These all have short axis diameters of less than a centimeter with maximal measurements given above. Probably not amenable to percutaneous drainage at this point. There is also some underlying myositis. 2. No evidence for osteomyelitis. 3. Left axillary adenopathy. Discharge Plan - Discharge Disposition Patient Disposition: Discharge Home - Discharge Condition Condition: Good - Discharge Order Discharge Orders: Discharge Order (Routine); Ordered 05/26/18 Ordered By: Popeye Leary - Discharge Details Anticipated Discharge Date: 05/26/18 Discharge Comment: Arrange Wound care for the patient at discharge. - Physicians Team Primary Care Provider: Primary Care Laura Allen Attending Provider: Popeye Leary Other Providers: Shira Willis MD ; Cecil Bermudez MD
== END 2018-05-26 15:29 | disposition home or self-care (01) ==
LOC: NEPE 19:43 → NEDA 22:16 → EDBD 22:16 → HIMC 05-21 03:30 → N07 05-23 13:28
PROVIDERS: ADMIT Internal Medicine; ATTEND Internal Medicine